=== PATIENT | female | born 1935 | race Caucasian/White ===

== ENCOUNTER 2019-12-18 11:21 | Inpatient (IN) | payer MEDICARE, SELFPAY ==
[2019-12-18] VITALS (8 sets, daily range): BP systolic 93–152; BP diastolic 45–75; PULSE 70–85; RESP 18–28; TEMP 37.6–38.2; O2SAT 90–98; BMI 37.0
--- NOTE | 2019-12-18 11:46 | ED_ITS ---
HPI - General Adult General: Chief complaint: General Medical Stated complaint: SHAKING ALL OVER/ FEVER Time Seen by Provider: 12/18/19 11:26 History of Present Illness: HPI narrative: 84-year-old female comes in from home via EMS. She is attended by her daughter. Her only complaint is weakness and shaking. She specifically denies any pain. She denies any chest pain abdominal pain. She denies any GI or complaints. She denies any recent medication changes. She is has chronic swelling in her legs but that has not changed either. She has no skin breakdown or ulceration. She has a fever here but denies having any fever at home release that she was aware of should not check it but she has not felt any fever sweats or chills. She did have a pacemaker replaced 1 week ago. Onset (ago): day(s) Severity: moderate Associated symptoms: Reports malaise and weakness; Deny chest pain, confusion, cough, diaphoresis, decreased appetite, dyspnea, fevers/chills, headache(s), nausea, rash, palpitations, seizures, short of breath, syncope or vomiting Treatments prior to arrival: none Review of Systems Const: Reports: malaise; Denies: diaphoresis ENMT: Denies: throat pain, ear or mastoid pain, nasal discharge or nasal congestion Card: Denies: chest pain, palpitations or syncope Resp: Denies: dyspnea GI: Denies: nausea or vomiting : Denies: flank pain, difficulty voiding, dysuria, urinary frequency or urinary urgency Skin/Breast: Denies: rash Neuro: Denies: headache(s) or confusion [facility] ED PFSH: Medical History (Updated 12/21/19 @ 06:54 by Isaías Medel DO) Atrial fibrillation CHF (congestive heart failure) COPD (chronic obstructive pulmonary disease) Chronically on 3 l Coronary artery disease Hyperlipidemia Peripheral neuropathy Restless leg syndrome Sick sinus syndrome Surgical History (Updated 12/18/19 @ 14:34 by Mitch Maxwell MD) History of appendectomy History of bilateral knee arthroplasty Pacemaker Previous back surgery Family History (Updated 12/18/19 @ 14:36 by Mitch Maxwell MD) Other CAD (coronary artery disease) Diabetes Social History (Updated 12/18/19 @ 14:36 by Mitch Maxwell MD) Smoking and tobacco status: never smoked Alcohol intake: never Physical Exam Const: COMMON NORMALS: no acute distress GENERAL APPEARANCE: cooperative and comfortable HENMT: COMMON NORMALS: normocephalic, atraumatic, hearing grossly normal bilaterally and external ears normal HEAD & SCALP: normocephalic and atraumatic EXTERNAL EAR: Yes external ears normal Eye: COMMON NORMALS: Equal, round and reactive pupils present, EOMs intact bilaterally, conjunctivae normal and no scleral icterus CONJUNCTIVA: Yes conjunctivae normal PUPIL: Yes Equal, round and reactive pupils present Neck/C-Spine: COMMON NORMALS: full ROM, no lymphadenopathy, supple and no JVD Lymph: LYMPHATIC: no lymphadenopathy noted and no lymphedema noted Resp: COMMON NORMALS: normal respiratory effort, No retractions, No use of accessory muscles and clear to auscultation bilaterally AUSCULTATION: clear to auscultation bilaterally Cardio: COMMON NORMALS: no JVD, regular rate, regular rhythm and No murmurs present (Cardio) RATE: regular rate RHYTHM: regular rhythm GI: COMMON NORMALS: Soft to palpation and No hepatosplenomegaly present AUSCULTATION: Yes normoactive bowel sounds PALPATION: Yes Soft to palpation, No Tenderness to palpation present (GI), No Guarding due to palpation present (GI) and Yes No hepatosplenomegaly present Extremity: COMMON NORMALS: normal to inspection, capillary refill normal, no clubbing, cyanosis or edema, no calf tenderness and no pedal edema Skin: COMMON NORMALS: no rashes or lesions noted GENERAL SKIN EXAM: no rashes or lesions noted Course Vital Signs: Vital signs: Vital Signs Temperature 101.3 F H 12/21/19 04:00 Pulse Rate 80 12/21/19 04:29 Respiratory Rate 21 H 12/21/19 05:39 Blood Pressure 137/49 12/21/19 04:00 Pulse Oximetry 94 12/21/19 04:29 MDM - General Adult MDM Narrative: Medical decision making narrative: Patient is left lower lobe pneumonia and elevated troponin discussed Dr. Jenkins will admit orders written. Lab Data: Labs: Lab Results 12/18/19 12/18/19 12/18/19 Range/Units 11:51 12:02 12:02 WBC 4.6 (4.0-10.0) 10^3/ uL RBC 3.87 L (4.1-5.3) 10^6/u L Hgb 10.9 L (11.5-15.3) g/dL Hct 36.1 L (37.0-47.0) % MCV 93.3 (81-99) fL MCH 28.2 (28.0-34.0) pg MCHC 30.2 (30.0-36.0) g/dL RDW 17.2 H (12.1-15.1) % Plt Count 115 L (130-400) 10^3/c mm MPV 12.9 H (7.4-10.4) fL Neut % (Auto) 79.6 % Lymph % (Auto) 11.0 % Coles % (Auto) 7.5 % Eos % (Auto) 0.4 % Baso % (Auto) 0.4 % Neut # (Auto) 3.69 (1.8-7.7) 10^3/u L Lymph # (Auto) 0.5 L (0.8-4.8) 10^3/u L Coles # (Auto) 0.4 (0.2-0.9) 10^3/u L Eos # (Auto) 0.0 (0.0-0.8) 10^3/u L Baso # (Auto) 0.0 (0.0-0.1) 10^3/u L Nucleated RBC % (a uto) 0 % Nucleated RBCs # 0.0 /100WBC Sodium (136-145) mmol/L Potassium (3.5-5.1) mmol/L Chloride (98-107) mmol/L Carbon Dioxide (22-29) mmol/L Anion Gap (5-19) BUN (8-23) mg/dL Creatinine (0.5-0.9) mg/dL GFR Calculation Glucose (65-115) mg/dL Calculated Osmolal ity (285-295) mOsm/k g Lactic Acid 2.2 (0.5-2.2) mmol/L Calcium (8.5-10.5) mg/dL Magnesium (1.7-2.3) mg/dL Total Bilirubin (0.15-1.2) mg/dL AST (0-32) U/L ALT (0-33) U/L Alkaline Phosphata se (35-105) IU/L Creatine Kinase (26-192) U/L Troponin T Baselin e (0-10) ng/L Troponin T 120 Min alturas (0-10) ng/L Delta Troponin T (0-10) ABS# Total Protein (6.6-8.7) g/dL Albumin (3.5-5.2) g/dL Globulin (1.3-4.6) g/dL Lipase (13-60) U/L Urine Color Yellow (Yellow) Urine Appearance Sl hazy (CLEAR) Urine pH 7 (5-7) Ur Specific Gravit y 1.010 (1.005-1.030) Urine Protein Neg (Negative) Urine Glucose (UA) Norm (Normal) Urine Ketones Negative (Negative) Urine Blood Neg (Negative) Urine Nitrate Negative (Negative) Urine Bilirubin Neg (NEGATIVE) Urine Urobilinogen Neg (Negative) mg/dL Ur Leukocyte Malini ase Negative (Negative) Serum Ketones (Negative) 12/18/19 12/18/19 12/18/19 Range/Units 12:02 12:02 14:31 WBC (4.0-10.0) 10^3/ uL RBC (4.1-5.3) 10^6/u L Hgb (11.5-15.3) g/dL Hct (37.0-47.0) % MCV (81-99) fL MCH (28.0-34.0) pg MCHC (30.0-36.0) g/dL RDW (12.1-15.1) % Plt Count (130-400) 10^3/c mm MPV (7.4-10.4) fL Neut % (Auto) % Lymph % (Auto) % Coles % (Auto) % Eos % (Auto) % Baso % (Auto) % Neut # (Auto) (1.8-7.7) 10^3/u L Lymph # (Auto) (0.8-4.8) 10^3/u L Coles # (Auto) (0.2-0.9) 10^3/u L Eos # (Auto) (0.0-0.8) 10^3/u L Baso # (Auto) (0.0-0.1) 10^3/u L Nucleated RBC % (a uto) % Nucleated RBCs # /100WBC Sodium 138 (136-145) mmol/L Potassium 4.3 (3.5-5.1) mmol/L Chloride 99 (98-107) mmol/L Carbon Dioxide 29 (22-29) mmol/L Anion Gap 14.3 (5-19) BUN 19 (8-23) mg/dL Creatinine 1.1 H (0.5-0.9) mg/dL GFR Calculation Not Reportable Glucose 119 H (65-115) mg/dL Calculated Osmolal ity 284 L (285-295) mOsm/k g Lactic Acid (0.5-2.2) mmol/L Calcium 8.5 (8.5-10.5) mg/dL Magnesium 2.3 (1.7-2.3) mg/dL Total Bilirubin 0.5 (0.15-1.2) mg/dL AST 33 H (0-32) U/L ALT 19 (0-33) U/L Alkaline Phosphata se 98 (35-105) IU/L Creatine Kinase 44 (26-192) U/L Troponin T Baselin e 28 H (0-10) ng/L Troponin T 120 Min alturas 27.60 H (0-10) ng/L Delta Troponin T -0.40 L (0-10) ABS# Total Protein 6.7 (6.6-8.7) g/dL Albumin 3.8 (3.5-5.2) g/dL Globulin 2.9 (1.3-4.6) g/dL Lipase 16 (13-60) U/L Urine Color (Yellow) Urine Appearance (CLEAR) Urine pH (5-7) Ur Specific Gravit y (1.005-1.030) Urine Protein (Negative) Urine Glucose (UA) (Normal) Urine Ketones (Negative) Urine Blood (Negative) Urine Nitrate (Negative) Urine Bilirubin (NEGATIVE) Urine Urobilinogen (Negative) mg/dL Ur Leukocyte Malini ase (Negative) Serum Ketones Negative (Negative) Discharge Plan Discharge Patient Disposition: Admitted As Inpatient Admit Provider: Mitch Maxwell Clinical Impression: Pneumonia, COPD (chronic obstructive pulmonary disease), Coronary artery disease, Acute kidney injury, Elevated troponin Condition: Stable Interventions: ED Discharge Assessment Last Done: 12/18/19 16:26 ED Charges Last Done: 12/18/19 16:26 Discharge Date/Time: 12/18/19 16:33 Coding Level of Care Code ED Aircraft Power Plant Assembler for Chg Fwd Exam Comprehensive
--- NOTE | 2019-12-18 11:50 | XR_ITS ---
WS: [id number] EXAM: AP CHEST: PORTABLE UPRIGHT DATE OF EXAM: 12/18/2019, 1213 hours COMPARISON: Chest x-ray from 05/16/2018 HISTORY: Patient is 84 years old with dyspnea and cough.. FINDINGS: The cardiac silhouette is slightly enlarged. The mediastinal contours are similar. Calcified plaqu e in the aorta. Left subclavian dual lead pacer remains in place. The pulmonary vascularity is slig htly congested. Chronic lung changes are demonstrated. Calcified granuloma right upper lobe. Patchy infiltrate in the medial right lung base again seen, considered chronic. There is infiltrate which merida s developed within the left lung base of the left effusion suggesting a pneumonia. No pneumothorax. Bone density is decreased. XR/XR chest 1V portable [id number] IMPRESSION: Stable cardiomegaly. Chronic lung changes. What appears be chronic infiltrate inferior right hilum a nd medial right lung base. Developing pneumonia left lung base with a small left effusion.
--- NOTE | 2019-12-18 11:51 | ECG_ITS ---
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 Measurements Intervals [place] Rate: 78 P: MD: -1 QRS: -71 QRSD: 149 T: 5 QT: 414 QTc: 472 Interpretive Statements JUNCTIONAL RHYTHM RIGHT BUNDLE BRANCH BLOCK [120+ ms QRS DURATION, UPRIGHT V1, 40+ ms S IN I/aVL/V4/V5/V6] LEFT ANTERIOR FASCICULAR BLOCK [QRS AXIS <= -45, QR IN I, RS IN II] Compared to ECG 05/16/2018 08:02:31 Right bundle-branch block now present Left anterior fascicular block now present T-wave abnormality now present Possible ischemia now present Atrial-paced complex(es) or rhythm no longer present Ventricular-paced complex(es) or rhythm no longer present Electronically Signed On 12-19-2019 19:41:34 CDT by Gaston Stewart M.D. [id number]
[2019-12-18 12:14] LABS: Add Urine Microscopic? NO
[2019-12-18 12:15] LABS: Basophils % 0.4 %; Eosinophils % 0.4 %; Hematocrit 36.1 % (37.0-47.0); Hemoglobin 10.9 g/dL (11.5-15.3); Lymphocytes # 0.5 10^3/uL (0.8-4.8); Mean Corpuscular HGB Conc 30.2 g/dL (30.0-36.0); Mean Corpuscular Hemoglobin 28.2 pg (28.0-34.0); Mean Corpuscular Volume 93.3 fL (81-99); Mean Platelet Volume 12.9 fL (7.4-10.4); Monocytes # 0.4 10^3/uL (0.2-0.9); Monocytes % 7.5 %; Neutrophils # 3.69 10^3/uL (1.8-7.7); Neutrophils % 79.6 %; Nucleated Red Blood Cells % 0 %; Platelet Count 115 10^3/cmm (130-400); Red Blood Count 3.87 10^6/uL (4.1-5.3); Red Cell Distribution Width 17.2 % (12.1-15.1); White Blood Count 4.6 10^3/uL (4.0-10.0)
[2019-12-18 12:27] LABS: Bilirubin Urine Neg (NEGATIVE); Blood Urine Neg (Negative); Glucose Urine UA Norm (Normal); Ketones Urine Negative (Negative); Leukocyte Esterase Urine Negative (Negative); Nitrate Urine Negative (Negative); Protein Urine Neg (Negative); Urine Appearance SL Hazy (CLEAR); Urine Color Yellow (Yellow); Urobilinogen Urine Neg (Negative); pH Urine 7 (5-7)
[2019-12-18 12:37] LABS: Ketone (Acetest) Serum Negative (Negative)
[2019-12-18 12:38] LABS: Lactic Sepsis W/Reflex 2.2 mmol/L (0.5-2.2); Troponin(5th) Baseline 28 ng/L (0-10)
[2019-12-18 13:01] LABS: Alanine Aminotransferase 19 U/L (0-33); Albumin Level 3.8 g/dL (3.5-5.2); Alkaline Phosphatase 98 IU/L (35-105); Anion Gap 14.3 (5-19); Aspartate Amino Transferase 33 U/L (0-32); Blood Urea Nitrogen 19 mg/dL (8-23); Calcium 8.5 mg/dL (8.5-10.5); Carbon Dioxide 29 mmol/L (22-29); Chloride 99 mmol/L (98-107); Creatine Phosphokinase 44 U/L (26-192); Globulin 2.9 g/dL (1.3-4.6); Glucose 119 mg/dL (65-115); Lipase 16 U/L (13-60); Magnesium 2.3 mg/dL (1.7-2.3); Osmolality Calculated 284 mOsm/kg (285-295); Potassium 4.3 mmol/L (3.5-5.1); Sodium 138 mmol/L (136-145); Total Bilirubin 0.5 mg/dL (0.15-1.2); Total Protein 6.7 g/dL (6.6-8.7)
--- NOTE | 2019-12-18 13:51 | ECG_ITS ---
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 Measurements Intervals [place] Rate: 75 P: ME: -1 QRS: -71 QRSD: 162 T: 65 QT: 415 QTc: 464 Interpretive Statements Junctional rhythm Intermittent paced beats RIGHT BUNDLE BRANCH BLOCK [120+ ms QRS DURATION, UPRIGHT V1, 40+ ms S IN I/aVL/V4/V5/V6] LEFT ANTERIOR FASCICULAR BLOCK [QRS AXIS <= -45, QR IN I, RS IN II] MODERATE T-WAVE ABNORMALITY, CONSIDER LATERAL ISCHEMIA [-0.1+ mV T WAVE IN I/aVL/V5/V6] Compared to ECG 12/18/2019 12:17:32 T-wave abnormality still present Electronically Signed On 12-20-2019 20:06:26 CDT by Gaston Stewart M.D. [id number]
[2019-12-18 13:57] LABS: Reflex Lactate Order REFLEX LACTIC ORDERD
[2019-12-18] MEDS: cefTRIAXone 1,000 MG in sodium chloride 0.9% (plus) 50 ML 100 MG IV (14:14)
--- NOTE | 2019-12-18 14:32 | P.HP_ITS ---
Providers/Chief Complaint Chief Complaint: SHAKING ALL OVER/ FEVER History of Present Illness Kate Haskins is a 84 year old female Medications/Allergies Home Medications Medication Instructions Recorded Confirmed Last Taken Type calcium carbonate-vitamin D3 1 tab PO DAILY 12/18/19 12/18/19 Unknown History [Calcium 500 + D] cetirizine [Zyrtec] 10 mg PO QPM 12/18/19 12/18/19 12/17/19 History diltiazem HCl 120 mg PO DAILY 12/18/19 12/18/19 Unknown History escitalopram oxalate See Rx Instructions .ROUTE .COMPLEX 12/18/19 12/18/19 Unknown History fluticasone propionate 2 spray INTRANASAL DAILY 12/18/19 12/18/19 Unknown History furosemide 40 mg PO BID 12/18/19 12/18/19 12/18/19 History gabapentin See Rx Instructions .ROUTE .COMPLEX 12/18/19 12/18/19 12/18/19 History hydrocodone-acetaminophen 1 tab PO Q6H PRN 12/18/19 12/18/19 12/17/19 History isosorbide mononitrate 120 mg PO QAM 12/18/19 12/18/19 12/18/19 History levocetirizine 5 mg PO QPM 12/18/19 12/18/19 12/17/19 History lisinopril 10 mg PO BID 12/18/19 12/18/19 12/18/19 History naproxen sodium [Aleve] 220 mg PO PRN 12/18/19 12/18/19 12/17/19 History omeprazole 20 mg PO DAILY 12/18/19 12/18/19 12/18/19 History Allergies Allergy/AdvReac Type Severity Reaction Status Date / Time ibuprofen [From Motrin] Allergy Unknown Verified 12/18/19 12:19 Penicillins Allergy Unknown Verified 12/18/19 12:19 PFSH Acute PFSH: Medical History (Updated 12/18/19 @ 14:40 by Mitch Maxwell MD) Atrial fibrillation CHF (congestive heart failure) COPD (chronic obstructive pulmonary disease) Chronically on 3 l Coronary artery disease Hyperlipidemia Peripheral neuropathy Restless leg syndrome Sick sinus syndrome Surgical History (Updated 12/18/19 @ 14:34 by Mitch Maxwell MD) History of appendectomy History of bilateral knee arthroplasty Pacemaker Previous back surgery Family History (Updated 12/18/19 @ 14:36 by Mitch Maxwell MD) Other CAD (coronary artery disease) Diabetes Social History (Updated 12/18/19 @ 14:36 by Mitch Maxwell MD) Smoking and tobacco status: never smoked Alcohol intake: never Vitals/I&O/Wt Last Vital Signs Temp 100.8 F H 12/18/19 11:22 Pulse 75 12/18/19 14:21 Resp 20 H 12/18/19 14:21 BP 133/65 12/18/19 14:21 Pulse Ox 98 12/18/19 14:21 Weight last 48 hrs Weight 97.976 kg Physical Exam Narrative: EXAM NARRATIVE: General exam no apparent distress HEENT: Pupils equally round. Oropharynx clear. Neck is supple no lymphadenopathy or thyromegaly Cardiovascular regular rate and rhythm without murmur, no S3 or S4 Lungs clear a few crackles left side. No wheezing. Abdomen is soft nontender with positive bowel sounds. No obvious organomegaly is deferred Extremities no cyanosis clubbing or edema, cap refill brisk Skin no rash Neuro no focal deficits Data : 12/18/19 12:02 12/18/19 12:02 Other Labs: AST slightly elevated at 33, troponin elevated at 28, urinalysis negative. Chest x-ray pneumonia, left effusion possible. Pacemaker noted. EKG demonstrates sinus rhythm, left axis deviation, right bundle branch block and a heart rate of 78 Micro: Microbiology 12/18/19 12:02 Blood Culture - Preliminary Blood SPECIMEN COLLECTED 12/18/19 12:06 Blood Culture - Preliminary Blood SPECIMEN COLLECTED A&P Assessment and plan (1) Pneumonia: Appears to have left lower lobe pneumonia. Febrile with temperature of 100.8. Patient with history of chills at home. Blood culture, sputum culture. Rocephin, azithromycin Status: Acute (2) Acute kidney injury: Hold diuretics today Avoid renal toxic medication such as anti-inflammatories which are on her PRN list. Status: Acute (3) Elevated troponin: Likely type II, will trend Status: Acute Additional A&P Information History of CHF hold Lasix currently. History of coronary artery disease. Asymptomatic. Hypertension. For now continue home medications Multiple other medical problems as listed in her past medical history Heparin for DVT prophylaxis full code Attestations Medical Necessity Statement*: Will need greater than 2 midnight stay for IV antibiotics secondary to pneumonia. Coding Level of Care Code Acute Body Maker Machine Setter for Chg Fwd Diagnoses Pneumonia J18.9 Acute kidney injury N17.9 Elevated troponin R79.89
--- NOTE | 2019-12-18 15:05 | PC.NURSE ---
pt tested for covid 19 [place] virus. pt placed on droplet isolation precautions
[2019-12-18] MEDS: azithromycin 500 MG in sodium chloride 0.9% 250 ML 250 MG IV (15:06)
[2019-12-18 15:29] LABS: Influenza A by IFA Negative (Negative); Influenza B by IFA Negative (Negative); SARS Covid-2 Antigen Negative (Negative)
--- NOTE | 2019-12-18 15:40 | PC.NURSE ---
Pt requested being turned and was turned onto her right hip. Pt also requested a warm blanket, given.
[2019-12-18] MEDS: gabapentin 400 mg Capsule PO ×2 (17:31→21:04)
[2019-12-18] MEDS: heparin 5,000 unit/mL INJ 1 mL 5000 UNIT SUBCUT (17:31)
[2019-12-18] MEDS: lisinopril 10 mg Tablet PO (17:37)
--- NOTE | 2019-12-18 17:51 | ECG_ITS ---
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 Measurements Intervals [place] Rate: 77 P: ME: -1 QRS: -61 QRSD: 140 T: 30 QT: 429 QTc: 487 Interpretive Statements Junctional rhythm RIGHT BUNDLE BRANCH BLOCK [120+ ms QRS DURATION, UPRIGHT V1, 40+ ms S IN I/aVL/V4/V5/V6] LEFT ANTERIOR FASCICULAR BLOCK [QRS AXIS <= -45, QR IN I, RS IN II] Compared to ECG 12/18/2019 14:01:06 No significant changes Electronically Signed On 12-20-2019 20:02:03 CDT by Gaston Stewart M.D. [id number]
[2019-12-18 18:39] LABS: Lactic Acid level (Lactate) 1.3 mmol/L (0.5-2.2)
[2019-12-18 18:41] LABS: Troponin 5 6HR 27.57 ng/L (0-10)
[2019-12-18 18:42] LABS: Troponin 5 6HR Delta -0.43 ng/L (0-12)
[2019-12-19] VITALS (65 sets, daily range): BP systolic 67–169; BP diastolic 12–74; PULSE 66–125; RESP 14–62; TEMP 37.2–39.6; O2SAT 83–99
[2019-12-19] MEDS: heparin 5,000 unit/mL INJ 1 mL 5000 UNIT SUBCUT ×2 (03:17→15:43)
[2019-12-19 04:03] LABS: Basophils % 0.5 %; Eosinophils % 0.3 %; Hemoglobin 10.7 g/dL (11.5-15.3); Lymphocytes # 0.6 10^3/uL (0.8-4.8); Lymphocytes % 15.6 %; Mean Corpuscular HGB Conc 29.7 g/dL (30.0-36.0); Mean Corpuscular Hemoglobin 27.5 pg (28.0-34.0); Mean Corpuscular Volume 92.5 fL (81-99); Mean Platelet Volume 12.9 fL (7.4-10.4); Monocytes # 0.4 10^3/uL (0.2-0.9); Monocytes % 10.5 %; Neutrophils # 2.68 10^3/uL (1.8-7.7); Nucleated Red Blood Cells % 0 %; Platelet Count 91 10^3/cmm (130-400); Red Blood Count 3.89 10^6/uL (4.1-5.3); Red Cell Distribution Width 17.2 % (12.1-15.1); White Blood Count 3.7 10^3/uL (4.0-10.0)
[2019-12-19 04:24] LABS: Alanine Aminotransferase 24 U/L (0-33); Albumin Level 3.5 g/dL (3.5-5.2); Alkaline Phosphatase 91 IU/L (35-105); Anion Gap 11.3 (5-19); Aspartate Amino Transferase 42 U/L (0-32); Blood Urea Nitrogen 17 mg/dL (8-23); Calcium 8.4 mg/dL (8.5-10.5); Carbon Dioxide 29 mmol/L (22-29); Chloride 100 mmol/L (98-107); Globulin 2.5 g/dL (1.3-4.6); Glucose 122 mg/dL (65-115); Osmolality Calculated 280 mOsm/kg (285-295); Potassium 4.3 mmol/L (3.5-5.1); Sodium 136 mmol/L (136-145); Total Bilirubin 0.5 mg/dL (0.15-1.2)
[2019-12-19] MEDS: gabapentin 400 mg Capsule PO ×2 (06:38→09:06)
[2019-12-19] MEDS: isosorbide mononitrate ER 60 mg Tablet 120 MG PO (06:38)
[2019-12-19] MEDS: acetaminophen 325 mg Tablet 650 MG PO ×2 (09:06→15:48)
[2019-12-19] MEDS: pantoprazole DR 40 mg Tablet PO (09:06)
[2019-12-19] MEDS: dilTIAZem ER (24HR) 120 mg Capsule PO (09:06)
[2019-12-19] MEDS: lisinopril 10 mg Tablet PO (09:06)
--- NOTE | 2019-12-19 10:31 | CT_ITS ---
WS: [id number] EXAM: CT PULMONARY ANGIOGRAM DATE OF EXAMINATION: 12/19/2019, 1359 hours COMPARISON: Chest x-ray from one day prior. HISTORY: 84 years old with dyspnea and cough, shaking and fever. Clinical working diagnosis of pulmonary embol us. TECHNIQUE: Transaxial computed tomography images obtained through the chest utilizing 95 mL of Omnipaque 350 IV contrast with images acquired in the pulmonary arterial phase. Images viewed in multiple windows with reconstructions. DLP: 579.[address] scans at [facility] use at least one of these dose optimization techniques: automat ed exposure control; mA and/or kV adjustment per patient size (includes targeted exams where dose is matched to clinical indication); or iterative reconstruction. FINDINGS: The pulmonary artery is well opacified. The examination is compromised by slight motion artifact. No large central embolus is identified. The more peripheral vessels are considered poorly visualized to assess for more peripheral small embolic phenomena. There are findings of patchy bilateral upper lobe groundglass infiltrates. Becomes more of a consolidative patchy pneumonitis within the lingula, both lower lobes and medial segment of the middle lobe suggesting a multilobar pneumonia. No effusion or pneumothorax. Correlation for atypical pneumonitis including a viral pneumonia recommended. Shotty ad enopathy is seen within the mediastinum. Heart size is slightly enlarged. Pacing wires and in the hea rt. Pacing unit is in the left upper chest wall. Overall bone density is decreased. Multilevel degene rative changes are seen in the spine. Overall bone density is profoundly decreased. DEXA scan correla tion is recommended. Extensive calcification along the interspinous ligament dorsally noted. No acute spine abnormality is seen. Upper abdomen liver attenuation is normal. Spleen, visualized portions of the pancreas, adrenal glands are normal in appearance. CT/CT angio chest PE protcl [id number] IMPRESSION: Imaging findings consistent with a multilobar pneumonia. Most prominent in the lung bases. Consider atypical agents including a viral pneumonia. Examination compromised by slight motion artifact and body habitus. No large ce ntral embolus identified. More peripheral vessels are considered poorly evaluat ed.
[2019-12-19 13:29] LABS: Glucose Point of Care 120 mg/dL (70-110)
[2019-12-19 13:35] LABS: ABG PCO2 51.8 mmHg (35-45); ABG PH Result 7.25 (7.35-7.45); Alveolar-Arterial Oxygen Gradi 3.3 mmHg (5-10); Arterial Blood Gas Hematocrit 39.1 % (37-47); Base Excess ABG -4.8 mmol/L (-2.0-2.0); Blood Gas Allen Test Pos; Blood Gas Operator Identificat CAK; Blood Gas Sample Site Brachial, left; Blood Gas Sample Type Arterial; Carboxyhemoglobin 0.8 %THgb (0.4-20.1); HCO3 ABG 22.8 mmol/L (22-26); HGB O2 Sat 84.6 % (95-100); Ionized Calcium Level - ABG 1.3 mmol/L (1.1-1.4); Methemoglobin 0.8 % (0.4-1.5); Oxygen Device OXY MASK; PO2 ABG 61.1 mmHg (80.0-100.0); Potassium Level - ABG 4.5 mmol/L (3.5-5.0); Total Hemoglobin 12.8 g/dL (12-16)
--- NOTE | 2019-12-19 13:47 | PC.NURSE ---
Tow Motor Driver attempted to contact pt daughter to inform her of pt being transferred to ICU.
--- NOTE | 2019-12-19 13:53 | P.PN_ITS ---
Subjective Subjective: Interval history: Kate reported she was doing okay when I saw her earlier this morning. She however did spike another fever. She stated she was short of breath. I was called into the room early this afternoon as her oxygen level had gone down significantly after going to the bathroom. Vital signs were reviewed, she was given 80 mg of Lasix IV, placed on BiPAP for work of breathing, ABG drawn, and transferred to the ICU. Medications: Reviewed: Yes Vitals/I&O/Wt Last Vital Signs Temp 100.1 F H 12/19/19 11:49 Pulse 95 12/19/19 13:35 Resp 18 12/19/19 11:49 BP 113/66 12/19/19 11:49 Pulse Ox 96 12/19/19 13:35 12/18/19 12/19/19 12/19/19 22:59 06:59 14:59 Intake Total 750 / 750 90 / 90 Output Total 105 / 105 200 / 305 Balance 645 / 645 -200 / 445 90 / 90 Weight last 48 hrs Weight 97.976 kg Physical Exam Narrative: EXAM NARRATIVE: General exam moderate respiratory distress without BiPAP Cardiovascular regular rate and rhythm without murmur, no S3 or S4 Lungs a few expiratory wheezes Abdomen is soft nontender with positive bowel sounds. No obvious organomegaly is deferred Extremities no cyanosis clubbing. 1+ edema Data : 12/19/19 03:49 12/19/19 03:49 Micro: Microbiology 12/18/19 12:06 Blood Culture - Preliminary Blood NEGATIVE TO DATE 12/18/19 12:02 Blood Culture - Preliminary Blood NEGATIVE TO DATE A&P Assessment and plan (1) Pneumonia: Appears to have left lower lobe pneumonia. Febrile with temperature of 100.8 on admission. She appears to be worsening. Discontinue Rocephin and azithromycin Initiate vancomycin, cefepime Blood culture, sputum culture pending With recurrent fever must also consider possible bacteremia as she recently had pacemaker placed 2 weeks ago CTA of chest ordered pulmonary embolism protocol for increasing shortness of breath, as well as fever and pneumonia Lasix 80 mg IV secondary to respiratory distress Status: Acute (2) Acute kidney injury: Renal function has improved significantly Avoid renal toxic medication such as anti-inflammatories which are on her PRN list. Status: Acute (3) Elevated troponin: Type II. No evidence of acute myocardial infarction Status: Acute Additional A&P Information History of tick bites. Initiate doxycycline. Note that she has become leukopenic as well as thrombocytopenic which could be indicative of tickborne disease although sepsis from pneumonia is also possible. Acute hypoxic respiratory failure. Differential includes CHF, worsening pneumonia, PE. See notations above regarding IV Lasix, BiPAP, CTA chest. Check EKG History of CHF Lasix 80 mg IV x1. Check BNP on blood in lab History of coronary artery disease. Asymptomatic. Hypertension. For now continue home medications Multiple other medical problems as listed in her past medical history Heparin for DVT prophylaxis full code Attestations Medical Necessity Statement*: Needs continued hospitalization for IV antib iotics secondary to pneumonia Coding Level of Care Code Acute Technical Maintenance Technician for [facility] Fwd Diagnoses Pneumonia J18.9 Acute kidney injury N17.9 Elevated troponin R79.89
--- NOTE | 2019-12-19 13:57 | PC.NURSE ---
Heel Sprayer First spoke to pt daughter regarding her transfer to ICU.
--- NOTE | 2019-12-19 14:02 | ECG_ITS ---
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 Measurements Intervals [place] Rate: 79 P: -9 RI: 180 QRS: -82 QRSD: 165 T: 85 QT: 384 QTc: 441 Interpretive Statements ELECTRONIC ATRIAL PACEMAKER ELECTRONIC VENTRICULAR PACEMAKER Compared to ECG 12/18/2019 18:21:23 Paced rhythm now present Right bundle-branch block no longer present Left anterior fascicular block no longer present Electronically Signed On 12-21-2019 12:12:31 CDT by Gaston Stewart M.D. [email or web address]/store/[id number]
[2019-12-19] MEDS: iohexol 350 mg/mL 100 mL Btl IV (14:07)
[2019-12-19] MEDS: ipratropium-albuterol 3 mL Neb INHALATION ×2 (14:46→19:29)
[2019-12-19] MEDS: cefepime 2,000 MG in sodium chloride 0.9% (plus) 50 ML 100 MG IV (14:47)
[2019-12-19 14:53] LABS: NT Pro B Type Natriuretic Pept 2220 pg/mL (0-450)
[2019-12-19] MEDS: sodium chloride 0.9% 500 ML IV ×2 (17:45→19:23)
[2019-12-19] MEDS: sodium chloride 0.9% 250 ML 1000 ML IV (17:48)
[2019-12-19] MEDS: doxycycline 100 mg Tablet PO (18:15)
[2019-12-19] MEDS: levofloxacin-dextrose 5 % 750 MG/150 ML PREMIX 100 MG IV (18:15)
--- NOTE | 2019-12-19 19:58 | PC.NURSE ---
At shift change, pt had pulled out R AC IV. IV access reestablished in R FA. Pt on bipap, but O2 was 93%. Pt unable to answer questions and difficult to arouse. BP 106/89 after starting levophed. RT consulted and Dr hong. G ordered.
[2019-12-19 20:01] LABS: ABG PCO2 49.9 mmHg (35-45); ABG PH Result 7.25 (7.35-7.45); Arterial Blood Gas Hematocrit 34.6 % (37-47); Base Excess ABG -5.4 mmol/L (-2.0-2.0); Blood Gas Sample Site Brachial, right; Blood Gas Sample Type Arterial; HCO3 ABG 21.9 mmol/L (22-26); Oxygen Device BIPAP; PO2 ABG 72.3 mmHg (80.0-100.0)
[2019-12-19] MEDS: rocuronium 10 mg/mL INJ 5mL 100 MG IV (20:32)
--- NOTE | 2019-12-19 20:35 | XR_ITS ---
WS: [id number] EXAM: AP CHEST: PORTABLE UPRIGHT DATE OF EXAM: 12/19/2019, 2045 hour COMPARISON: Chest x-rays from 07/14/2018 and 12/18/2019 HISTORY: Patient is 84 years old with respiratory failure. Intubated an enteric tube placement. FINDINGS: The cardiac silhouette is stable. Considered slightly enlarged. The mediastinal contours show inte rval placement of an endotracheal tube ending midclavicular level. Enteric tube crosses the thoracic esophagus. Side port overlies the left upper abdomen. The pulmonary vascularity is congested. There appears to be some minimal infiltrate in the right perihilar region with calcified granuloma outer r ight chest. Patchy infiltrate in the left mid and lower chest again demonstrated. Appears slightly wo rse. Small left effusion. No pneumothorax. No acute bony abnormality is seen. XR/XR chest 1V portable [id number] IMPRESSION: Endotracheal tube and enteric tube in satisfactory position. Slight worsening l eft base infiltrate. Some patchy infiltrate right perihilar and medial lung bas e.
[2019-12-19] MEDS: sodium chloride 0.9% 500 ML 999 ML IV (21:09)
--- NOTE | 2019-12-19 21:11 | P.PCN_ITS ---
Procedure/Consent Time out: Time Out Performed: Yes Consent: Consent for Procedure: Consent obtained from patient Procedure Narrative: Bedside endo tracheal intubation I was called by the respiratory therapist that patient is getting somnolent, stat ABG revealed respiratory acidosis on BiPAP, decision was made to intubate the patient Patient was on BiPAP saturating 99 to 100%, map 64-65, we titrated up her l evophed, 500 normal saline bolus was running at the bedside Etomidate 30 mg and rocuronium 100 mg was used, MAC 3.5 blade was used to visualize vocal cords, endotracheal tube size 7.5 was inserted without any difficulty, end-tidal CO2 detected via color change, bilateral coarse breath sounds, endotracheal tube secured at lipbite 24 cm. Post intubation saturation improved quickly with Ambu bag Post intubation blood pressure 105/70mmhg Endotracheal tube placement confirmed with chest x-ray NG tube in the gastric fundus Post intubation sedation with fentanyl because of her soft mean arterial p ressure. Her daughter Ms. Mejias has been updated. Acute Procedures Epistaxis Control: Time out performed: Yes Intubation: Time out performed: Yes Sedative: etomidate Paralytic: rocuronium Laryngoscope: Jose ET tube size: 7.5 Tube secured location: lips Tube placement confirmation: visualized tube passing through cords and equal breath sounds bilaterally Patient tolerated procedure: well Intubation complications: none
[2019-12-19] MEDS: phenylephrine inj 25 MG in sodium chloride 0.9% 250 ML 24.2 MG IV (21:14)
[2019-12-19 22:03] LABS: ABG PH Result 7.28 (7.35-7.45); Arterial Blood Gas Hematocrit 36.4 % (37-47); Base Excess ABG -6.9 mmol/L (-2.0-2.0); Blood Gas Sample Site Brachial, right; Blood Gas Sample Type Arterial; Blood Gas Tidal Volume 0.45; HCO3 ABG 19.4 mmol/L (22-26); Oxygen Device VENT; PO2 ABG 73.9 mmHg (80.0-100.0)
[2019-12-19] MEDS: FUROsemide 10 mg/mL SDV 2mL 20 MG IVP (23:09)
[2019-12-19] MEDS: metroNIDAZOLE IV 500 MG/100 ML PREMIX 100 MG IV (23:09)
[2019-12-19] MEDS: doxycycline 100 MG in sodium chloride 0.9% (plus) 100 ML IV (23:12)
[2019-12-19 23:51] LABS: Anion Gap 19.8 (5-19); Blood Urea Nitrogen 28 mg/dL (8-23); Calcium 8.4 mg/dL (8.5-10.5); Carbon Dioxide 20 mmol/L (22-29); Chloride 100 mmol/L (98-107); Glucose 201 mg/dL (65-115); Osmolality Calculated 283 mOsm/kg (285-295); Potassium 4.8 mmol/L (3.5-5.1); Sodium 135 mmol/L (136-145)
[2019-12-19 23:52] LABS: Lactate (Lactic Acid level) 3.7 mmol/L (0.5-2.2)
[2019-12-19] MEDS: LORazepam 2 mg/mL INJ 1 mL IVP (23:57)
[2019-12-20] VITALS (82 sets, daily range): BP systolic 67–169; BP diastolic 33–82; PULSE 61–108; RESP 12–32; TEMP 38–40.6; O2SAT 91–98
--- NOTE | 2019-12-20 00:06 | PC.PHAR ---
Levaquin dosage is adjusted from 750mg IVPB every 24 hours to 750mg IVPB every 48 hours due to creatinine clearance of 28.504
[2019-12-20] MEDS: ipratropium-albuterol 3 mL Neb INHALATION ×5 (00:11→19:41)
[2019-12-20] MEDS: norepinephrine 8 MG in dextrose 5 % 500 ML 30.5 MG IV (00:25)
[2019-12-20] MEDS: cefepime 2,000 MG in sodium chloride 0.9% (plus) 50 ML 100 MG IV ×2 (00:55→23:28)
[2019-12-20] MEDS: levofloxacin-dextrose 5 % 750 MG/150 ML PREMIX 100 MG IV (01:05)
[2019-12-20] MEDS: propofol 1,000 MG/100 ML INJ 8.8 MG IV ×2 (01:50→21:14)
--- NOTE | 2019-12-20 02:03 | PM.ACPR ---
Procedure/Consent Consent: Consent for Procedure: Emergency procedure Additional Consent Information: Central line placement for hypotension right femoral venous access Patient was sedated on propofol and fentanyl After sterile dressing and prep, ultrasound-guided femoral venous access was obtained, Seldinger technique was used to put triple lumen catheter, all 3 ports were flushed with good venous return, central line secured with sutures, sterile dressing applied Postprocedure complication: None Estimated blood loss 20 to 25ml
[2019-12-20] MEDS: heparin 5,000 unit/mL INJ 1 mL 5000 UNIT SUBCUT (02:23)
[2019-12-20 03:32] LABS: Basophils # 0.1 10^3/uL (0.0-0.1); Basophils % 0.5 %; Eosinophils # 0.1 10^3/uL (0.0-0.8); Eosinophils % 0.5 %; Hematocrit 41.2 % (37.0-47.0); Hemoglobin 12.1 g/dL (11.5-15.3); Lymphocytes # 0.8 10^3/uL (0.8-4.8); Lymphocytes % 8.8 %; Mean Corpuscular HGB Conc 29.4 g/dL (30.0-36.0); Mean Corpuscular Hemoglobin 27.6 pg (28.0-34.0); Mean Corpuscular Volume 93.8 fL (81-99); Monocytes # 0.3 10^3/uL (0.2-0.9); Monocytes % 2.7 %; Neutrophils # 7.87 10^3/uL (1.8-7.7); Neutrophils % 84.3 %; Nucleated Red Blood Cells # 0.1 /100WBC; Nucleated Red Blood Cells % 0.7 %; Platelet Count 67 10^3/cmm (130-400); Red Blood Count 4.39 10^6/uL (4.1-5.3); Red Cell Distribution Width 17.3 % (12.1-15.1); White Blood Count 9.3 10^3/uL (4.0-10.0)
[2019-12-20 04:00] LABS: Alanine Aminotransferase 93 U/L (0-33); Albumin Level 3.6 g/dL (3.5-5.2); Alkaline Phosphatase 112 IU/L (35-105); Anion Gap 17.7 (5-19); Aspartate Amino Transferase 218 U/L (0-32); Blood Urea Nitrogen 31 mg/dL (8-23); Carbon Dioxide 23 mmol/L (22-29); Chloride 100 mmol/L (98-107); Globulin 2.6 g/dL (1.3-4.6); Glucose 220 mg/dL (65-115); Osmolality Calculated 286 mOsm/kg (285-295); Potassium 4.7 mmol/L (3.5-5.1); Sodium 136 mmol/L (136-145); Total Bilirubin 1.4 mg/dL (0.15-1.2); Total Protein 6.2 g/dL (6.6-8.7)
[2019-12-20 04:23] LABS: Mean Platelet Volume 12.9 fL (7.4-10.4)
[2019-12-20 05:07] LABS: ABG PCO2 38.6 mmHg (35-45); Arterial Blood Gas Hematocrit 35.1 % (37-47); Base Excess ABG -6.7 mmol/L (-2.0-2.0); Blood Gas Allen Test Pos; Blood Gas Sample Site Brachial, right; Blood Gas Sample Type Arterial; HCO3 ABG 19.1 mmol/L (22-26); Oxygen Device VENT; PO2 ABG 76.6 mmHg (80.0-100.0)
[2019-12-20] MEDS: isosorbide mononitrate ER 60 mg Tablet 120 MG PO (05:22)
[2019-12-20 05:57] LABS: NT Pro B Type Natriuretic Pept 6966 pg/mL (0-450)
--- NOTE | 2019-12-20 06:00 | XR_ITS ---
WS: [id number] EXAM: AP CHEST: PORTABLE UPRIGHT DATE OF EXAM: 12/20/2019, 0500 hours COMPARISON: Chest x-rays from 12/17 and 12/19/2019 as well as prior imaging from 11/16/2017. HISTORY: Patient is 84 years old with respiratory failure. Intubated. Patient with a fever. FINDINGS: The cardiac silhouette is stable. Considered slightly enlarged The mediastinal contours again demo nstrate an endotracheal tube in the midclavicular level. Enteric tube crosses the thoracic esophagus. Distal aspect is off the inferior margin of the film. The pulmonary vascularity is normal. Slight chronic lung changes seen. Calcified granuloma upper outer right hemithorax noted. There is stable s light infiltrate/atelectasis right lung base with small right effusion. Minimally increased diffusion in the interim. Left base consolidation has worsened. Trace left pleural fluid. No pneumothorax lef t subclavian double lead pacer remains in place. XR/XR chest 1V portable [id number] IMPRESSION: Supporting devices in satisfactory position. Worsening consolidation left lung base with small left effusion. Increased aeration to the right lung base with a small increasing right effusion. Minimal right base infiltrate similar.
[2019-12-20] MEDS: metroNIDAZOLE IV 500 MG/100 ML PREMIX 100 MG IV ×3 (06:03→22:29)
[2019-12-20] MEDS: norepinephrine 8 MG in dextrose 5 % 500 ML 38.1 MG IV (08:05)
[2019-12-20 08:07] LABS: Hepatitis A Antibody IgM Non-Reactive (Nonreactive); Hepatitis B Core IgM Non-Reactive (Nonreactive); Hepatitis B Surface Antigen Non-Reactive (Nonreactive); Hepatitis C Virus Antibody Non-Reactive (Nonreactive)
[2019-12-20] MEDS: sodium chloride 0.9% 1,000 ML 50 ML IV (08:10)
[2019-12-20] MEDS: pantoprazole 40 mg SDV IVP ×2 (08:10→19:47)
[2019-12-20] MEDS: acetaminophen 325 mg Tablet 650 MG PO ×3 (08:35→21:03)
[2019-12-20] MEDS: phenylephrine inj 25 MG in sodium chloride 0.9% 250 ML 24.2 MG IV (08:39)
[2019-12-20 08:41] LABS: SARS Covid-2 Antigen Negative (Negative)
--- NOTE | 2019-12-20 10:00 | P.PN_ITS ---
Subjective Subjective: Interval history: Sedated on the ventilator. Had worsening mental status on BiPAP last night so intubated. Pressors were initiated, norepinephrine as well as phenylephrine. Medications: Reviewed: Yes Vitals/I&O/Wt Last Vital Signs Temp 105.1 F H 12/20/19 09:00 Pulse 90 12/20/19 09:30 Resp 26 H 12/20/19 09:30 BP 103/70 12/20/19 09:30 Pulse Ox 97 12/20/19 09:30 12/19/19 12/20/19 12/20/19 22:59 06:59 14:59 Intake Total 1866.423 / 4854.036 6497.696 / 3188.119 496.909 / 496.909 Output Total 200 / 200 400 / 600 Balance 1666.423 / 1756.423 831.696 / 2588.119 496.909 / 496.909 Weight last 48 hrs Weight 98.248 kg Weight 97.976 kg Physical Exam Narrative: EXAM NARRATIVE: Sedated on the ventilator, febrile Cardiovascular regular rate and rhythm Lungs coarse bibasilar Abdomen is soft. Bowel sounds are noted Extremities no cyanosis clubbing. Trace bilateral edema. Urinary Catheter Management^: Boss: Cath Placed During This Visit: yes Reason for Continuing Indwelling Catheter: Accurate Measurement of Urinary Output in Critically Ill Patients Urinary Catheter Date of Insertion: 12/19/19 Urinary Catheter Time of Insertion: 14:00 Data : 12/20/19 03:20 12/20/19 03:20 Micro: Microbiology 12/20/19 02:33 Gram Stain - Preliminary Sputum - Endotracheal Tube Aspirate 12/19/19 23:21 Bacterial Antigens - Final Urine,Voided 12/19/19 23:21 Legionella Urinary Antigen - Final Urine Catheterized 12/19/19 11:20 Gram Stain - Final Sputum - Expectorated Sputum 12/18/19 12:06 Blood Culture - Preliminary Blood NEGATIVE TO DATE 12/18/19 12:02 Blood Culture - Preliminary Blood NEGATIVE TO DATE A&P Assessment and plan (1) Hypotension: Became significantly hypotensive yesterday likely secondary to sepsis. Unable to give significant amount of fluids secondary to heart failure norepinephrine was initiated last night and phenylephrine added. Hopefully this can be weaned. Will add saline at 50 cc an hour secondary to hypotension, sepsis, acute kidney injury Status: Acute (2) Sepsis: See documentation under pneumonia Status: Acute (3) Acute respiratory failure: Rapidly worsened yesterday with fever, worsening shortness of breath, decreased mentation requiring intubation late last night Currently on FiO2 50%, PEEP of 8 Status: Acute (4) Pneumonia: Multilobar pneumonia on CT PE protocol performed yesterday. Continues to be febrile. Antibiotics were cefepime, vancomycin, Levaquin. 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 She was also placed on doxycycline 1 day following admission secondary to history of tick exposure Await blood and sputum cultures I had COVID retested today, with rapid test being negative again and PTC test sent. We will keep in isolation until PTC is negative. With recurrent fever must also consider possible bacteremia as she recently had pacemaker placed 2 weeks ago will echocardiogram has been ordered and pending. Pacemaker site without concerns. Blood cultures negative to date.. Status: Acute (5) Acute kidney injury: Renal function has worsened overnight. This is likely secondary to sepsis and hypotension. Addition of 50 cc an hour saline Repeat BMP tomorrow Status: Acute (6) Elevated troponin: Type II. No evidence of acute myocardial infarction Status: Acute Additional A&P Information Thrombocytopenia. Patient mildly thrombocytopenic at baseline. Discontinue heparin. SCDs for DVT prophylaxis. Follow closely. Likely secondary to sepsis. Metabolic acidosis. Secondary to sepsis, renal failure. Continue to treat. Transaminitis. Check hepatitis panel. She has not really had any abdominal discomfort. Development of this is likely secondary to sepsis. Check abdominal ultrasound. Could consider CT but secondary to current clinical status would like patient to be more stable. History of tick bites. Initiate doxycycline. Note that she has become leukopenic as well as thrombocytopenic which could be indicative of tickborne disease although sepsis from pneumonia is also possible. Acute hypoxic respiratory failure. Differential includes CHF, worsening pne umonia, PE. See notations above regarding IV Lasix, BiPAP, CTA chest. Check EKG History of CHF awaiting echocardiogram. History of COPD. Continue nebs History of coronary artery disease. Asymptomatic. Hypertension. For now continue home medications Multiple other medical problems as listed in her past medical history Heparin for DVT prophylaxis full code GI prophylaxis with Protonix Attestations Medical Necessity Statement*: Needs continued hospital stay in ICU secondary to respiratory failure requiring ventilatory support Critical Care Time: 44 minutes spent in critical care time at bedside, discussing with nursing, examination of the patient, developing plan in this patient with multiorgan failure secondary to sepsis with high risk of . Coding Level of Care Code Acute [employer]il[employer]aker [employer] for [employer] Diagnoses Hypotension I95.9 Sepsis A41.9 Acute respiratory failure J96.00 Pneumonia J18.9 Acute kidney injury N17.9 Elevated troponin R79.89
[2019-12-20] MEDS: doxycycline 100 MG in sodium chloride 0.9% (plus) 100 ML IV ×2 (11:28→22:29)
[2019-12-20] MEDS: propofol 1,000 MG/100 ML INJ 5.9 MG IV (12:49)
--- NOTE | 2019-12-20 13:03 | PC.NURSE ---
Wasted 15 mL of Propofol with Vicenta Conway RN, in the med room.
[2019-12-20] MEDS: norepinephrine 8 MG in dextrose 5 % 500 ML 26.7 MG IV (15:40)
[2019-12-21] VITALS (104 sets, daily range): BP systolic 77–154; BP diastolic 37–88; PULSE 78–107; RESP 12–22; TEMP 36.5–39; O2SAT 87–99
[2019-12-21] MEDS: ipratropium-albuterol 3 mL Neb INHALATION ×7 (00:16→23:01)
[2019-12-21] MEDS: norepinephrine 8 MG in dextrose 5 % 500 ML 22.9 MG IV (02:33)
[2019-12-21] MEDS: HYDROmorphone 1 mg/mL INJ 1 mL 2 MG IVP (03:47)
[2019-12-21] MEDS: sodium chloride 0.9% 1,000 ML 50 ML IV (03:47)
[2019-12-21 04:07] LABS: Basophils % 0.4 %; Eosinophils % 0.1 %; Hematocrit 37.6 % (37.0-47.0); Hemoglobin 11.5 g/dL (11.5-15.3); Lymphocytes # 0.8 10^3/uL (0.8-4.8); Lymphocytes % 7.1 %; Mean Corpuscular HGB Conc 30.6 g/dL (30.0-36.0); Mean Corpuscular Hemoglobin 27.9 pg (28.0-34.0); Mean Corpuscular Volume 91.3 fL (81-99); Monocytes # 0.4 10^3/uL (0.2-0.9); Monocytes % 4.1 %; Neutrophils # 9.46 10^3/uL (1.8-7.7); Neutrophils % 87.3 %; Nucleated Red Blood Cells % 0 %; Platelet Count 54 10^3/cmm (130-400); Red Blood Count 4.12 10^6/uL (4.1-5.3); Red Cell Distribution Width 17.3 % (12.1-15.1); White Blood Count 10.8 10^3/uL (4.0-10.0)
[2019-12-21 04:24] LABS: Mean Platelet Volume 12.9 fL (7.4-10.4)
[2019-12-21 04:41] LABS: ABG PCO2 33.7 mmHg (35-45); ABG PH Result 7.32 (7.35-7.45); Arterial Blood Gas Hematocrit 37.4 % (37-47); Base Excess ABG -7.9 mmol/L (-2.0-2.0); Blood Gas Sample Site Brachial, right; Blood Gas Sample Type Arterial; Blood Gas Tidal Volume 0.45; HCO3 ABG 17.3 mmol/L (22-26); Oxygen Device VENT; PO2 ABG 64.5 mmHg (80.0-100.0)
[2019-12-21 04:46] LABS: Alanine Aminotransferase 117 U/L (0-33); Albumin Level 2.6 g/dL (3.5-5.2); Alkaline Phosphatase 78 IU/L (35-105); Anion Gap 18.2 (5-19); Aspartate Amino Transferase 234 U/L (0-32); Blood Urea Nitrogen 40 mg/dL (8-23); Calcium 7.2 mg/dL (8.5-10.5); Carbon Dioxide 18 mmol/L (22-29); Chloride 99 mmol/L (98-107); Globulin 2.5 g/dL (1.3-4.6); Glucose 175 mg/dL (65-115); Magnesium 2.4 mg/dL (1.7-2.3); Osmolality Calculated 274 mOsm/kg (285-295); Potassium 4.2 mmol/L (3.5-5.1); Sodium 131 mmol/L (136-145); Total Bilirubin 0.9 mg/dL (0.15-1.2); Total Protein 5.1 g/dL (6.6-8.7)
[2019-12-21] MEDS: metroNIDAZOLE IV 500 MG/100 ML PREMIX 100 MG IV ×3 (06:24→22:21)
[2019-12-21] MEDS: acetaminophen 325 mg Tablet 650 MG PO ×2 (06:25→14:05)
[2019-12-21] MEDS: propofol 1,000 MG/100 ML INJ 8.8 MG IV (06:35)
--- NOTE | 2019-12-21 07:00 | XR_ITS ---
WS: [id number] CHEST XRAY TECHNIQUE: Portable chest. CLINICAL INFORMATION: resp failure COMPARISON: December 20, 2019 FINDINGS: Enteric tube with tip below the diaphragm. Endotracheal tube with tip above the hiwot. Heart: Cardiomegaly. Cardiac pacer. Lungs: Moderate chronic emphysematous changes. Small bilateral pleural effusions. Bibasilar atelectas is. Bones: Osteopenia. XR/XR chest 1V portable [id number] IMPRESSION: 1. Cardiomegaly with small bilateral pleural effusions. Left basilar atelectas is. 2. No focal pneumonia. 3. Enteric tube with tip below the diaphragm. Endotracheal tube with tip above the hiwot. 4. Cardiac pacer.
[2019-12-21] MEDS: pantoprazole 40 mg SDV IVP ×2 (07:15→19:16)
[2019-12-21] MEDS: norepinephrine 8 MG in dextrose 5 % 500 ML 30.5 MG IV (07:56)
--- NOTE | 2019-12-21 09:51 | P.PN_ITS ---
Subjective Subjective: Interval history: Intubated, sedated. Not in distress. Vitals/I&O/Wt Last Vital Signs Temp 102.2 F H 12/21/19 07:45 Pulse 94 12/21/19 09:45 Resp 12 12/21/19 09:45 BP 93/46 12/21/19 09:45 Pulse Ox 95 12/21/19 09:45 12/20/19 12/21/19 12/21/19 22:59 06:59 14:59 Intake Total 449.130 / 1161.196 1737.733 / 3303.529 268.987 / 268.987 Output Total 600 / 600 550 / 1150 Balance -150.870 / 1211.796 941.733 / 2153.529 268.987 / 268.987 Weight last 48 hrs Weight 102.603 kg Weight 98.248 kg Physical Exam Const: COMMON NORMALS: no acute distress OTHER: Intubated, sedated. HENMT: COMMON NORMALS: oropharynx normal Neck/C-Spine: COMMON NORMALS: no JVD Resp: COMMON NORMALS: normal respiratory effort and clear to auscultation bilaterally AUSCULTATION: clear to auscultation bilaterally Cardio: COMMON NORMALS: no JVD, regular rhythm, S1 normal heart sound present, S2 normal heart sound present and No murmurs present (Cardio) RHYTHM: regular rhythm HEART SOUNDS: S1 normal heart sound present and S2 normal heart sound present GI: COMMON NORMALS: Normal to inspection, nondistended, normoactive bowel sounds present, Soft to palpation and non-tender PALPATION: Yes Soft to palpation Extremity: COMMON NORMALS: no joint enlargement and no pedal edema Neuro: COMMON NORMALS: moves all extremities Skin: COMMON NORMALS: no rashes or lesions noted GENERAL SKIN EXAM: no rashes or lesions noted Urinary Catheter Management^: Boss: Cath Placed During This Visit: yes Reason for Continuing Indwelling Catheter: Accurate Measurement of Urinary Output in Critically Ill Patients Urinary Catheter Date of Insertion: 12/19/19 Urinary Catheter Time of Insertion: 14:00 Data : 12/21/19 03:25 12/21/19 03:25 Micro: Microbiology 12/19/19 11:20 Gram Stain - Final Sputum - Expectorated Sputum Sputum Culture - Final 12/20/19 02:33 Gram Stain - Preliminary Sputum - Endotracheal Tube Aspirate Sputum Culture - Preliminary A&P Assessment and plan (1) Hypotension: She is persistently hypotensive, currently on 60 mcg of Levophed. Has not required Sai-Synephrine today. As to me to view she is having worsened bilateral patchy infiltrates for now we will hold off additional IV fluid infusion. Continue Levophed. Attempt to wean as possible. Due to persistent hypotension will give also stress dose steroids starting with hydrocortisone 100 mg IV. Status: Acute (2) Sepsis: See documentation under pneumonia Repeat blood culture due to fever spike. Suspicion also of tickborne illness. Continue doxycycline empirically. Tick panel is pending. Today appears to have worsened thrombocytopenia, worsened liver function parameters. Mild hyponatremia. Peripheral smear. Initiate trophic feeds. Status: Acute (3) Acute respiratory failure: Oxygenation is somewhat worse today, perhaps with some fluid overload versus worsening pneumonia. Appears to have worsened bilateral patchy infiltrates on chest x-ray. For now we will hold off additional IV fluid. For now continue cefepime, vancomycin, doxycycline, Flagyl. Sputum culture pending. Urine bacterial antigens negative. Status: Acute (4) Pneumonia: Multilobar pneumonia on CT PE protocol performed yesterday. Recurrent fever. Cefepime, vancomycin, Levaquin. 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 She was also placed on doxycycline 1 day following admission secondary to history of tick exposure Await blood and sputum cultures I had COVID retested, with rapid test being negative again and PTC pending. We will keep in isolation until PTC is negative. With recurrent fever must also consider possible bacteremia as she recently had pacemaker placed 2 weeks ago will echocardiogram has been ordered and pending. Pacemaker site without concerns. Blood cultures negative to date. Status: Acute (5) Acute kidney injury: Continue to support blood pressure. Will request renal ultrasound. Renal function first to be worsening. Hold off additional Lasix. Will hold off additional IV fluid due to worsening hypoxia, worsening patchy infiltrates. Will check CK. At home appears was taking naproxen, lisinopril. Concern for also contrast- induced nephropathy with recent CTA. Status: Acute (6) Elevated troponin: Type II. No evidence of acute myocardial infarction Status: Acute (7) Thrombocytopenia: Heparin products had been held. Pending tick panel. Continue exercycle empirically. Requested peripheral smear. Pantoprazole, cefepime were started after thrombocytopenia was worsening. Status: Acute Additional A&P Information Metabolic acidosis. Secondary to sepsis, renal failure. Continue to manage underlying causes. Transaminitis. Unremarkable hepatitis panel. Has not had any abdominal discomfort. Development of this is likely secondary to sepsis. GB ultrasound ordered. Could consider CT but secondary to current clinical status would like patient to be more stable. History of tick bites. Doxycycline. Note that she has become leukopenic as well as thrombocytopenic which could be indicative of tickborne disease although sepsis from pneumonia is also possible. Acute hypoxic respiratory failure. Differential includes CHF, worsening pneum onia, PE. No large PE noted on CTA. TTE pending. Lasix on hold. Hold IVF. History of CHF awaiting echocardiogram. History of COPD. Continue nebs History of coronary artery disease. Asymptomatic. Hypertension. For now continue home medications Multiple other medical problems as listed in her past medical history Attestations Medical Necessity Statement*: Continue admission for assessment management of septic shock, pneumonia, tickborne illness, status post recent pacemaker placement. Critical Care Time: In addition to noncritical issues 40 minutes critical care time spent on assessment management of septic shock, persistent hypotension, worsening of hypoxia, volume status, thrombocytopenia which is worsening worsening acute kidney injury. 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
[2019-12-21 10:12] LABS: LAB Peripheral Smear Sent for Review
[2019-12-21] MEDS: hydrocortisone 100 mg/2 mL SDV IVP ×2 (10:52→22:22)
[2019-12-21] MEDS: doxycycline 100 MG in sodium chloride 0.9% (plus) 100 ML IV ×2 (10:52→22:21)
[2019-12-21 11:00] LABS: Vancomycin Trough 24.3 ug/mL (10-15)
--- NOTE | 2019-12-21 11:14 | PC.NURSE ---
Tube feedings, Pulmacore, started at 20 ml/hr with 30 mL q8 with free water.
--- NOTE | 2019-12-21 11:23 | PC.NURSE ---
Report given to JAMIA Little, at this time to assume care of this patient.
[2019-12-21 11:26] LABS: Creatine Phosphokinase 3714 U/L (26-192)
[2019-12-21 12:03] LABS: Lyme AB Screen <0.90 index
[2019-12-21 13:48] LABS: Glucose Point of Care 153 mg/dL (70-110)
[2019-12-21] MEDS: propofol 1,000 MG/100 ML INJ 11.8 MG IV (14:05)
--- NOTE | 2019-12-21 14:08 | PC.RESP ---
PULMONARY REHAB INFORMATION SENT TO PATIENT.
--- NOTE | 2019-12-21 15:44 | PC.NURSE ---
Yajaira ring left hand 3rd finger I removed patient's ring due to edema and concerns for poor circulation to finger. Removed ring using gel pack and rotating ring off of the finger. I did place ring back on the patient's pinky finger and tape it in place. Ring was snug on pinky finger. Will continue to assess finger. Patients ring/3rd finger had good cap refill after ring removal. No other jewelry noted.
[2019-12-21 15:52] LABS: Coronavirus Lab Test PTC Negative
--- NOTE | 2019-12-21 16:14 | PC.NURSE ---
Covid negative Patient's family called and notified of results, will be allowed visitor.
--- NOTE | 2019-12-21 16:58 | PC.NURSE ---
Yajaira don sent home with patient's daughter, Magalie Diaz, per daughters request. This was done.
--- NOTE | 2019-12-21 17:06 | DCPLANNER ---
Pg 2 of IM updated and explained to Sister; Magalie who is @ bedside. No questions. Copy provided.
[2019-12-21] MEDS: norepinephrine 8 MG in dextrose 5 % 500 ML 26.7 MG IV (17:49)
[2019-12-21 18:15] LABS: Glucose Point of Care 161 mg/dL (70-110)
[2019-12-21 19:37] LABS: Alanine Aminotransferase 142 U/L (0-33); Albumin Level 2.5 g/dL (3.5-5.2); Alkaline Phosphatase 87 IU/L (35-105); Anion Gap 20.6 (5-19); Aspartate Amino Transferase 271 U/L (0-32); Blood Urea Nitrogen 49 mg/dL (8-23); Calcium 7.5 mg/dL (8.5-10.5); Carbon Dioxide 17 mmol/L (22-29); Chloride 97 mmol/L (98-107); Globulin 2.8 g/dL (1.3-4.6); Glucose 178 mg/dL (65-115); Osmolality Calculated 273 mOsm/kg (285-295); Potassium 4.6 mmol/L (3.5-5.1); Sodium 130 mmol/L (136-145); Total Bilirubin 0.8 mg/dL (0.15-1.2); Total Protein 5.3 g/dL (6.6-8.7)
[2019-12-21 20:14] LABS: Creatine Phosphokinase 3140 U/L (26-192)
[2019-12-21] MEDS: cefepime 2,000 MG in sodium chloride 0.9% (plus) 50 ML 100 MG IV (23:45)
[2019-12-21] MEDS: levofloxacin-dextrose 5 % 750 MG/150 ML PREMIX 100 MG IV (23:45)
[2019-12-22] VITALS (115 sets, daily range): BP systolic 73–131; BP diastolic 40–81; PULSE 75–91; RESP 14–17; TEMP 36.3–36.9; O2SAT 89–100
[2019-12-22] MEDS: propofol 1,000 MG/100 ML INJ 14.7 MG IV (00:12)
[2019-12-22 00:58] LABS: Glucose Point of Care 157 mg/dL (70-110)
[2019-12-22] MEDS: ipratropium-albuterol 3 mL Neb INHALATION ×6 (03:26→23:00)
[2019-12-22] MEDS: vancomycin 1,000 MG in sodium chloride 0.9% 250 ML 250 MG IV (04:17)
[2019-12-22 04:44] LABS: Basophils # 0.1 10^3/uL (0.0-0.1); Basophils % 0.4 %; Eosinophils % 0.1 %; Hematocrit 35.8 % (37.0-47.0); Hemoglobin 10.7 g/dL (11.5-15.3); Lymphocytes # 0.9 10^3/uL (0.8-4.8); Lymphocytes % 4.4 %; Mean Corpuscular HGB Conc 29.9 g/dL (30.0-36.0); Mean Corpuscular Hemoglobin 27.4 pg (28.0-34.0); Mean Corpuscular Volume 91.6 fL (81-99); Monocytes % 4.7 %; Neutrophils # 17.53 10^3/uL (1.8-7.7); Nucleated Red Blood Cells % 0 %; Platelet Count 54 10^3/cmm (130-400); Red Blood Count 3.91 10^6/uL (4.1-5.3); Red Cell Distribution Width 17.6 % (12.1-15.1); White Blood Count 20.2 10^3/uL (4.0-10.0)
[2019-12-22 04:44] LABS: Blood Gas Operator Identificat JB; Blood Gas Sample Site Brachial, left; Blood Gas Sample Type Arterial; Blood Gas Tidal Volume 0.45; Oxygen Device VENT
[2019-12-22 05:11] LABS: Alanine Aminotransferase 136 U/L (0-33); Albumin Level 2.5 g/dL (3.5-5.2); Alkaline Phosphatase 65 IU/L (35-105); Anion Gap 19.6 (5-19); Aspartate Amino Transferase 193 U/L (0-32); Blood Urea Nitrogen 64 mg/dL (8-23); Carbon Dioxide 17 mmol/L (22-29); Chloride 97 mmol/L (98-107); Globulin 2.9 g/dL (1.3-4.6); Glucose 162 mg/dL (65-115); Osmolality Calculated 271 mOsm/kg (285-295); Potassium 4.6 mmol/L (3.5-5.1); Sodium 129 mmol/L (136-145); Total Bilirubin 0.6 mg/dL (0.15-1.2); Total Protein 5.4 g/dL (6.6-8.7)
[2019-12-22] MEDS: sodium bicarbonate 150 MEQ in dextrose 5% 1,000 ML IV ×2 (05:28→15:14)
[2019-12-22 05:37] LABS: Glucose Point of Care 138 mg/dL (70-110)
[2019-12-22 05:39] LABS: Creatine Phosphokinase 2526 U/L (26-192)
--- NOTE | 2019-12-22 06:00 | XRR_ITS ---
PROCEDURE INFORMATION: Exam: XR Chest, 1 View Exam date and time: 12/22/2019 4:51 AM Age: 84 years old Clinical indication: Other: Hypoxia TECHNIQUE: Imaging protocol: XR of the chest Views: 1 view. COMPARISON: CR XR chest 1V portable [id number] 12/21/2019 5:42 AM FINDINGS: Tubes, catheters and devices: There is an ET tube in place with the tip positioned 4.0 cm superior to the hiwot. Two lead pacemaker device. Lungs: There are bilateral perihilar and left lung base hazy opacities. There are pulmonary parenchymal calcifications consistent with remote granulomatous organism exposure. Pleural space: Left pleural effusion is similar to the prior study. Heart/Mediastinum: The heart border is obscured. Vasculature: There is calcified plaque in the thoracic aorta. Bones/joints: Unremarkable. Other findings: G-tube partially visualized. XR/XR chest 1V portable [id number] IMPRESSION: 1. Bilateral perihilar and left lung base hazy opacities. Differential includes pneumonia and pulmonary edema. 2. Left pleural effusion is similar to the prior study.
--- NOTE | 2019-12-22 06:14 | PC.NURSE ---
Shift Events: CK remains elevated at 2526. Patient's abdomen is more distended and firm; Abdominal US and ECHO ordered. ABG shows Metabolic Acidosis; D5 with BiCarb initiated. Remains mechanically ventilated and afebrile. Moves all extremities equally and opens eyes to name. Will occasionally follow commands. All other VSS.
[2019-12-22 06:19] LABS: Slide Review Slide Review Perform
[2019-12-22] MEDS: propofol 1,000 MG/100 ML INJ 11.8 MG IV ×2 (06:32→07:36)
[2019-12-22] MEDS: metroNIDAZOLE IV 500 MG/100 ML PREMIX 100 MG IV ×3 (06:33→23:48)
--- NOTE | 2019-12-22 07:28 | USCV_ITS ---
Jozef Kate Age: 84 Gender: F : 1935 Exam Date: 12/22/2019 06:26 Ordering Phys: Mitch Maxwell MD Technologist: Dianne Cota [place]am [place] [facility] [place]: CHF BP: 119 / 51 HR: 85 Rhythm: Sinus Technical Quality: Very technically difficult study MEASUREMENTS (Male / Female) Normal Values 2D ECHO LV Diastolic Diameter PLAX 3.8 cm 4.2 - 5.9 / 3.9 - 5.3 cm LV Systolic Diameter PLAX 2.0 cm LV Chamber Size 4.1 cm IVS Diastolic Thickness 1.4 cm 0.6 - 1.0 / 0.6 - 0.9 cm IVS Systolic Thickness 1.9 cm LVPW Diastolic Thickness 1.3 cm 0.6 - 1.0 / 0.6 - 0.9 cm LVPW Systolic Thickness 1.7 cm RV Chamber Size 3.2 cm LVOT Diameter 2.0 cm LV Ejection Fraction 2D Teich 79.8 % LA Diameter 4.9 cm LA Width 2.7 cm LA Height 4.1 cm RA Width 3.7 cm RA Height 4.6 cm Aorta at Sinotubular Diameter 2.9 cm M-MODE LV Diastolic Diameter MM 3.5 cm 4.2 - 5.9 / 3.9 - 5.3 cm LV Systolic Diameter MM 2.8 cm LV Ejection Fraction MM Teich 42.2 % IVS Diastolic Thickness MM 1.8 cm 0.6 - 1.0 / 0.6 - 0.9 cm IVS Systolic Thickness MM 1.7 cm LVPW Diastolic Thickness MM 1.6 cm 0.6 - 1.0 / 0.6 - 0.9 cm LVPW Systolic Thickness MM 1.1 cm RV Diastolic Diameter MM 2.4 cm Aortic Annulus Diameter 3.0 cm LA Ao Ratio MM 1.6 MV E Point Septal Separation 0.6 cm DOPPLER AV Peak Velocity 155.0 cm/s LVOT Peak Velocity 78.0 cm/s AV Area Cont Eq vti 2.1 cm squared AV Area Cont Eq pk 1.6 cm squared MV Area PHT 3.7 cm squared Mitral E to A Ratio 1.0 MV E' Velocity 5.0 cm/s Mitral E to MV E' Ratio 13.3 Mitral E to LV E' Lateral Ratio 15.4 Mitral E to LV E' Septal Ratio 11.9 TR Peak Velocity 288.3 cm/s TR Peak Gradient 33.3 mmHg TR Mean Velocity 202.1 cm/s TR Mean Gradient 19.0 mmHg TR Velocity Time Integral 100.2 cm TV Peak E Velocity 77.0 cm/s Right Atrial Pressure 15.0 mmHg Pulmonary Artery Systolic Pressu 48.2 mmHg PV Peak Velocity 81.0 cm/s RV Acceleration Time 0.1 s RV Ejection Time 0.4 s RV AcT/ET 0.3 FINDINGS Left Ventricle Normal left ventricular size. Sleep LV function appears normal. Regional wall motion abnormalities cannot be assessed because of technically challenging study. Diastolic dysfunction is noted. Right Ventricle The right ventricle is normal in size and function. Pacemaker lead is noted Right Atrium The right atrium is normal in size. Pacemaker lead is noted Left Atrium The left atrium is normal in size. Mitral Valve Structurally normal mitral valve without significant stenosis or prolapse. There is no mitral regurgitation. Aortic Valve Aortic valve is not well-visualized. There is no aortic regurgitation or aortic stenosis. Tricuspid Valve Limited visualization. Mild TR is noted. RA pressure is elevated. RVSP is 45 to 50 mmHg. Moderate pulmonary hypertension is noted. Pulmonic Valve Structurally normal pulmonic valve without significant stenosis. There is no pulmonic regurgitation. Pericardium Small pericardial effusion Aorta Normal ascending aorta dimension. CONCLUSIONS This is a technically very difficult study. Limited visualization of LV. Grossly LV function appears normal, however, repeat limited study with contrast to better evaluate EF and regional wall motion abnormalities. Diastolic dysfunction is noted Moderate pulmonary hypertension is present. Small pericardial effusion is present. Gaston Stewart MD (Electronically Signed) Final Date: 22 December 2019 12:21 S
[2019-12-22] MEDS: pantoprazole 40 mg SDV IVP ×2 (07:35→19:18)
--- NOTE | 2019-12-22 08:16 | PC.NURSE ---
On am assessment, pt residual per tube feed was >550 ml. No bowel sounds heard. Tube feeding is running at 20ml hour. This was turned off and Dr. Liz notified.
--- NOTE | 2019-12-22 08:16 | PC.NURSE ---
This nurse did an assessment on patient and abd was round, firm and distended. Bowel sounds were absent. Residual was checked and was noted at 550ml. Tube feeding was stopped and Dr was notified.
[2019-12-22 08:24] LABS: ABG PCO2 45.8 mmHg (35-45); ABG PH Result 7.15 (7.35-7.45); Base Excess ABG -12.6 mmol/L (-2.0-2.0); PO2 ABG 87.8 mmHg (80.0-100.0)
[2019-12-22 08:57] LABS: Glucose Point of Care 169 mg/dL (70-110)
[2019-12-22] MEDS: norepinephrine 8 MG in dextrose 5 % 500 ML 34.3 MG IV (09:13)
[2019-12-22 09:16] LABS: Bilirubin Urine Neg (NEGATIVE); Blood Urine 3+ (Negative); Glucose Urine UA Trace (Normal); Ketones Urine 1+ (Negative); Nitrate Urine Negative (Negative); Protein Urine 3+ (Negative); Specific Gravity, Urine 1.015 (1.005-1.030); Urine Appearance SL Hazy (CLEAR); Urine Color Amber (Yellow)
[2019-12-22 09:17] LABS: Add Urine Microscopic? YES; Leukocyte Esterase Urine 1+ (Negative); Urobilinogen Urine Norm (Negative)
--- NOTE | 2019-12-22 09:20 | P.PN_ITS ---
Subjective Subjective: Interval history: She is under sedation, although wakes up little bit, minimally opens her eyes, does not appear to be awake enough to answer questions or follow commands. Vitals/I&O/Wt Last Vital Signs Temp 97.3 F L 12/22/19 05:45 Pulse 78 12/22/19 08:30 Resp 16 12/22/19 07:39 BP 116/60 12/22/19 08:30 Pulse Ox 95 12/22/19 08:30 12/21/19 12/22/19 12/22/19 22:59 06:59 14:59 Intake Total 434.050 / 946.020 193.1 / 1139.120 12.587 / 12.587 Output Total 200 / 350 50 / 400 580 / 580 Balance 234.050 / 596.020 143.1 / 739.120 -567.413 / -567.413 Weight last 48 hrs Weight 105.506 kg Weight 105.506 kg Weight 102.603 kg Physical Exam Const: COMMON NORMALS: no acute distress OTHER: Intubated, sedated. HENMT: COMMON NORMALS: oropharynx normal Neck/C-Spine: COMMON NORMALS: no JVD Resp: COMMON NORMALS: normal respiratory effort and clear to auscultation bilaterally AUSCULTATION: clear to auscultation bilaterally Cardio: COMMON NORMALS: no JVD, regular rhythm, S1 normal heart sound present, S2 normal heart sound present and No murmurs present (Cardio) RHYTHM: regular rhythm HEART SOUNDS: S1 normal heart sound present and S2 normal heart sound present GI: COMMON NORMALS: Normal to inspection, nondistended, normoactive bowel sounds present, Soft to palpation and non-tender PALPATION: Yes Soft to palpation OTHER: Appears to be more distended. Extremity: COMMON NORMALS: no joint enlargement OTHER: 1+ leg edema Neuro: COMMON NORMALS: moves all extremities Skin: COMMON NORMALS: no rashes or lesions noted GENERAL SKIN EXAM: no rashes or lesions noted Urinary Catheter Management^: Boss: Cath Placed During This Visit: yes Reason for Continuing Indwelling Catheter: Accurate Measurement of Urinary Output in Critically Ill Patients Urinary Catheter Date of Insertion: 12/19/19 Urinary Catheter Time of Insertion: 14:00 Data : 12/22/19 04:19 12/22/19 04:19 Micro: Microbiology 12/21/19 10:15 Blood Culture - Preliminary Blood SPECIMEN COLLECTED 12/21/19 10:35 Blood Culture - Preliminary Blood SPECIMEN COLLECTED 12/19/19 11:20 Gram Stain - Final Sputum - Expectorated Sputum Sputum Culture - Final 12/20/19 02:33 Gram Stain - Preliminary Sputum - Endotracheal Tube Aspirate Sputum Culture - Preliminary A&P Assessment and plan (1) Hypotension: This appears to be showing gradual improvement. She is still requiring Levophed, although is down to 9 mcg. Continue attempts to wean. At this time continue stress dose steroids. As to me to view she is having worsened bilateral patchy infiltrates for now we will hold off additional IV fluid infusion. Continue Levophed. Attempt to wean as possible. Due to persistent hypotension will give also stress dose steroids starting with hydrocortisone 100 mg IV. Status: Acute (2) Sepsis: With persistent septic shock. Suspicion also of tickborne illness. Continue doxycycline empirically. Tick panel is pending. Today appears to have worsened thrombocytopenia, worsened liver function parameters. Mild hyponatremia. Peripheral smear in process. Residual >550mL. Feeds held. Abdominal distention, although abdomen soft. Will assess CTAP. LA 2.6. For now non-contrast study due to renal injury. Discused w aging room operator. Appreciate consultation. Discussed w daughter. Status: Acute (3) Acute respiratory failure: CXR w bilateral perihilar and L lung base opacities. Oxygenation steady. For now continue cefepime, vancomycin (dose adjusted as elevated level, alternatives considered w pharmacy, but no other good option at this time), doxycycline, Flagyl. Sputum culture pending. Urine bacterial antigens negative. Status: Acute (4) Pneumonia: Multilobar pneumonia. Recurrent fever. Cefepime, vancomycin, Levaquin. 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 She was also placed on doxycycline 1 day following admission secondary to history of tick exposure Await blood and sputum cultures I had COVID retested, negative. With recurrent fever consider bacteremia, but blood cultures repeatedly negative so far. TTE pending. Pacemaker site without concerns. Status: Acute (5) Acute kidney injury: Continue to support blood pressure. No hydronephrosis on renal ultrasound. Renal function first to be worsening. Hold off additional Lasix. Will hold off additional IV fluid due to worsening hypoxia, worsening patchy infiltrates. CK with some elevation. At home appears was taking naproxen, lisinopril. Concern for also contrast- induced nephropathy with recent CTA. Apprecieate nephrology recs. Status: Acute (6) Elevated troponin: Type II. No evidence of acute myocardial infarction Status: Acute (7) Thrombocytopenia: Stabilized. Low in 50s. Heparin products had been held. Pending tick panel. Continue doxy empirically. Requested peripheral smear. In process. Pantoprazole, cefepime were started after thrombocytopenia was worsening. Status: Acute Additional A&P Information Metabolic acidosis. Received bicarbonate. Secondary to sepsis, renal failure. Continue to manage underlying causes. Transaminitis. Unremarkable hepatitis panel. Has not had any abdominal discomfort. Development of this is likely secondary to sepsis. Heterogenous liver. Suspect injury secondary to hypotension, sepsis, possibly tick-borne illness. History of tick bites. Doxycycline. Note that she has become leukopenic as well as thrombocytopenic which could be indicative of tickborne disease although sepsis from pneumonia is also possible. Acute hypoxic respiratory failure. Differential includes CHF, worsening pneumonia, PE. No large PE noted on CTA. TTE pending. Lasix on hold. Hold IVF. History of CHF awaiting echocardiogram. History of COPD. Continue nebs History of coronary artery disease. Asymptomatic. Hypertension. For now continue home medications Multiple other medical problems as listed in her past medical history Attestations Medical Necessity Statement*: Continue admission for assessment and management of septic shock, PNA, ANAHY, metabolic acidosis, suspected tick borne illness. 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
[2019-12-22 09:28] LABS: Bacteria Urine 2+; Mucus Urine TRACE; RBC Urine 15-25 /hpf (0-2); Squamous Epithelial Cell Urine 0-4 (0-5)
[2019-12-22 09:29] LABS: Add Urine Culture? Yes; WBC Urine 0-4 /hpf (0-5)
[2019-12-22 09:33] LABS: Lactate (Lactic Acid level) 2.6 mmol/L (0.5-2.2)
--- NOTE | 2019-12-22 09:51 | CT_ITS ---
WS: [id number] CT ABDOMEN PELVIS TECHNIQUE: Noncontrast CT of the abdomen and pelvis with coronal and sagittal reformatted images. CLINICAL INFORMATION: distention COMPARISON: CT . Ultrasound December 22, 2019 DLP: 1222.[address] scans at [facility] use at least one of these dose optimization techniques: automat ed exposure control; mA and/or kV adjustment per patient size (includes targeted exams where dose is matched to clinical indication); or iterative reconstruction. FINDINGS: Small bilateral pleural effusions with compressive atelectasis in the lung bases. Enteric tube with t ip in stomach. Mild hepatomegaly. Noncontrast liver otherwise appears unremarkable. Noncontrast splee n is unremarkable. Vicarious excretion of contrast in the gallbladder from prior CTA chest. Gallbladd er is otherwise normal. Adrenal glands are normal. Normal kidneys bilaterally with mild cortical atrophy. No hydronephrosis. Pancreatic fatty atrophy. Normal caliber abdominal aorta. Aortic calcification. Boss catheter in place. Rectal tube. Air distended sigmoid colon which is otherwise normal. No evide nce of small or large bowel obstruction. No abdominal lymphadenopathy. Aortic lymphadenopathy. No pelvic or inguinal lymphadenopathy. Small amount of ascites in the pelvis. Diffuse body wall anasarca. Spondylosis and ankylosis lumbar spine. CT/CT abdomen pelvis wo con [id number] IMPRESSION: 1. Small bilateral pleural effusions with compressive atelectasis in the lung bases right greater than left. Recommend correlation for pneumonia. 2. Enteric tube with tip in stomach. 3. Diffuse body wall anasarca with small amount of pelvic ascites. 4. Air distended sigmoid colon. No evidence of small or large bowel obstructio n. 5. Boss catheter and rectal tube in place. 6. No hydronephrosis in either kidney. 7. Mild hepatomegaly. Liver otherwise unremarkable.
--- NOTE | 2019-12-22 10:10 | US_ITS ---
WS: [id number] ULTRASOUND ABDOMEN CLINICAL INFORMATION: transaminitis COMPARISON: None. FINDINGS: Technically difficult examination. Liver Size: Enlarged Craniocaudal length: 20.0 cm. Echogenicity: Diffuse decreased echogenicity Surface nodularity: None. Mass (size and location): None. Bile ducts Intrahepatic ducts: Normal. Common bile duct diameter: 0.5 cm. Gallbladder Normal. Gallstones: None. Gallbladder sludge: None. Gallbladder wall thickening: None. Pericholecystic fluid: None. Sonographic Redd sign: Absent. Pancreas Normal as visualized. Spleen is not seen Right kidney: Normal. Hydronephrosis: None. Size: 12.5 cm x 6.8 cm x 5.5 cm Left kidney: Normal. Hydronephrosis: None. Size: 10.7 cm x 5.3 cm x 4.9 cm. Abdominal aorta and IVC Visualized portions are normal. Ascites: Small amount of free fluid: Moderate. US/US abdomen complete* [id number] IMPRESSION: 1. Enlarged diffuse hypoechoic liver can be seen with acute hepatitis and diff use hepatic edema. Recommend correlation with liver function tests. 2. Normal gallbladder. 3. No hydronephrosis in either kidney. 4. Spleen is not visualized.
[2019-12-22 10:23] LABS: Urine Creatinine 77 mg/dL (28-217)
[2019-12-22] MEDS: hydrocortisone 100 mg/2 mL SDV IVP ×2 (10:39→22:30)
[2019-12-22 11:06] LABS: Urea Nitrogen,Urine Random 180 mg/dL
[2019-12-22] MEDS: doxycycline 100 MG in sodium chloride 0.9% (plus) 100 ML IV ×2 (11:10→22:29)
--- NOTE | 2019-12-22 14:31 | P.CONIM_ITS ---
Providers/Reason For Consult Consulting Physican/Specialty*: Dr. Lovell Datar/Pulmonory Critical Care Reason for Consult*: Septic shock with multiorgan failure Attending Physician: Hector Guzman History of Present Illness History of Present Illness Kate Haskins is a 84 year old female with past medical history atrial fibrillation, CHF, COPD, CAD, hyperlipidemia, peripheral neuropathy, restless leg syndrome, sick sinus syndrome, history of appendectomy, history of bilateral knee arthroplasty, pacemaker presented to ED with chief complaint of weakness and shaking and fevers admitted initially for pneumonia, COPD exacerbation, ANAHY and troponinemia but on day 2 desaturated and went into respiratory failure and hemodynamic instability requiring intubation and pressors. Consult called for evaluation and management of septic shock with multiorgan failure. Review of Systems General: Reports: ROS unobtainable due to endotracheal tube, ROS unobtainable due to medical condition and ROS unobtainable due to mental status Meds/Allergies Home Medications and Allergies Home Medications Medication Instructions Recorded Confirmed Last Taken Type calcium carbonate-vitamin D3 1 tab PO DAILY 12/18/19 12/18/19 Unknown History [Calcium 500 + D] cetirizine [Zyrtec] 10 mg PO QPM 12/18/19 12/18/19 12/17/19 History diltiazem HCl 120 mg PO DAILY 12/18/19 12/18/19 Unknown History escitalopram oxalate See Rx Instructions .ROUTE .COMPLEX 12/18/19 12/18/19 Unknown History fluticasone propionate 2 spray INTRANASAL DAILY 12/18/19 12/18/19 Unknown History furosemide 40 mg PO BID 12/18/19 12/18/19 12/18/19 History gabapentin See Rx Instructions .ROUTE .COMPLEX 12/18/19 12/18/19 12/18/19 History hydrocodone-acetaminophen 1 tab PO Q6H PRN 12/18/19 12/18/19 12/17/19 History isosorbide mononitrate 120 mg PO QAM 12/18/19 12/18/19 12/18/19 History levocetirizine 5 mg PO QPM 12/18/19 12/18/19 12/17/19 History lisinopril 10 mg PO BID 12/18/19 12/18/19 12/18/19 History naproxen sodium [Aleve] 220 mg PO PRN 12/18/19 12/18/19 12/17/19 History omeprazole 20 mg PO DAILY 12/18/19 12/18/19 12/18/19 History Allergies Allergy/AdvReac Type Severity Reaction Status Date / Time ibuprofen [From Motrin] Allergy Unknown Verified 12/18/19 12:19 Penicillins Allergy Unknown Verified 12/18/19 12:19 Current Medications Current Medications Generic Name Dose Route Start Last Admin Trade Name Freq PRN Reason Stop Dose Admin Acetaminophen 650 mg 12/18/19 14:42 12/21/19 14:05 Tylenol PO 650 mg Q6H PRN Administration Mild/Mod Pain Or Temp >/= 101 Albuterol/Ipratropium 3 ml 12/20/19 04:00 12/22/19 11:11 Duoneb INHALATION 3 ml Q4H.RESPIRATORY OPAL Administration Hydrocortisone Sodium Succinate 100 mg 12/21/19 10:30 12/22/19 10:39 Solu-Cortef Inj IVP 100 mg Q12H OPAL Administration Fentanyl 1,000 mcg/ Sodium 100 mls @ 0 mls/hr 12/19/19 20:30 12/20/19 09:09 Chloride IV 0 mcg/hr .Q0M OPAL 0 mls/hr Titration Protocol Per Protocol Phenylephrine HCl 25 mg/ 252.5 mls @ 0 mls/hr 12/19/19 21:00 12/20/19 17:04 Sodium Chloride IV Infused .Q0M OPAL Titration Protocol Per Protocol Metronidazole 500 mg in 100 mls @ 100 mls/hr 12/19/19 23:00 12/22/19 06:33 Flagyl Iv IV 100 mls/hr Q8H OPAL Administration Protocol Doxycycline Hyclate 100 mg/ 100 mls @ 100 mls/hr 12/19/19 23:00 12/22/19 12:31 Sodium Chloride IV Infused Q12H OPAL Infusion Protocol Propofol 1,000 mg in 100 mls @ 0 mls/hr 12/20/19 02:00 12/22/19 14:09 Diprivan IV 15 mcg/kg/min .Q0M OPAL 8.8 mls/hr Titration Protocol Per Protocol Sodium Chloride 1,000 mls @ 50 mls/hr 12/20/19 07:30 12/21/19 03:47 Sodium Chloride 0.9% IV 50 mls/hr .Q20H OPAL Administration Cefepime HCl 2,000 mg/ Sodium 50 mls @ 100 mls/hr 12/21/19 00:00 12/21/19 23:45 Chloride IV 100 mls/hr Q24H OPAL Administration Protocol Vancomycin HCl 1,000 mg/ 250 mls @ 250 mls/hr 12/22/19 05:00 12/22/19 04:17 Sodium Chloride IV 250 mls/hr Q36H OPAL Administration Protocol Sodium Bicarbonate 150 meq/ 1,150 mls @ 150 mls/hr 12/22/19 05:00 12/22/19 05:28 Dextrose IV 150 mls/hr .Q7H40M OPAL Administration Norepinephrine Bitartrate 8 mg 508 mls @ 0 mls/hr 12/22/19 08:00 12/22/19 11:53 / Dextrose IV 7 mcg/min .Q0M OPAL 26.7 mls/hr Titration Protocol Per Protocol Pantoprazole Sodium 40 mg 12/20/19 07:30 12/22/19 07:35 Protonix IVP 40 mg Q12H OPAL Administration PFSH Acute PFSH: Medical History Atrial fibrillation CHF (congestive heart failure) COPD (chronic obstructive pulmonary disease) Chronically on 3 l Coronary artery disease Hyperlipidemia Peripheral neuropathy Restless leg syndrome Sick sinus syndrome Surgical History History of appendectomy History of bilateral knee arthroplasty Pacemaker Previous back surgery Family History Other CAD (coronary artery disease) Diabetes Social History Smoking and tobacco status: never smoked Alcohol intake: never Vitals/I&O/Wt Last Vital Signs Temp 97.3 F L 12/22/19 05:45 Pulse 87 12/22/19 12:00 Resp 15 12/22/19 13:01 BP 104/53 12/22/19 12:00 Pulse Ox 100 12/22/19 12:00 12/21/19 12/22/19 12/22/19 22:59 06:59 14:59 Intake Total 434.050 / 946.020 293.1 / 1239.120 274.947 / 274.947 Output Total 200 / 350 50 / 400 580 / 580 Balance 234.050 / 596.020 243.1 / 839.120 -305.053 / -305.053 Weight last 48 hrs Weight 232 lb 9.6 oz Weight 232 lb 9.6 oz Weight 226 lb 3.2 oz Physical Exam Narrative: EXAM NARRATIVE: PHYSICAL EXAM: General: lying in bed, sedated and intubated. 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 SKIN: no rash Urinary Catheter Management^: Boss: Cath Placed During This Visit: yes Reason for Continuing Indwelling Catheter: Accurate Measurement of Urinary Output in Critically Ill Patients Urinary Catheter Date of Insertion: 12/19/19 Urinary Catheter Time of Insertion: 14:00 Data Micro: Micro: Microbiology 12/20/19 02:33 Gram Stain - Preli minary Sputum - Endotrac heal Tube Aspirate Sputum Culture - F inal 12/21/19 18:45 MRSA Culture - Fin al Nose 12/21/19 10:15 Blood Culture - Pr eliminary Blood NEGATIVE TO REJI E 12/21/19 10:35 Blood Culture - Pr eliminary Blood NEGATIVE TO REJI E Other Data: Attestation for Other Data: I personally reviewed and interpreted the following: Other data: MICRO: Reviewed IMAGING: Images reviewed personally OTHER DATA: EKG/Telemetry reviewed: yes Discussions with other Providers: yes. Dr. Guzman A&P Assessment and plan (1) Thrombocytopenia: Status: Acute (2) Coronary artery disease: Status: Acute Qualifiers: Coronary Disease-Associated Artery/Lesion type: unspecified vessel or lesion type [place] vs. transplanted heart: unspecified whether [place] or transplanted heart Associated angina: with unspecified angina Qualified Code(s): I25.119 - Atherosclerotic heart disease of [place] coronary artery with unspecified angina pectoris (3) Acute kidney injury: Status: Acute (4) Pneumonia: Status: Acute Qualifiers: Pneumonia type: due to unspecified organism Laterality: bilateral Lung location: lower lobe of lung Qualified Code(s): J18.9 - Pneumonia, unspecified organism (5) Septic shock: Status: Acute Overall: 84-year-old female admitted to ICU for acute respiratory failure and hemodynamic instability likely in septic shock with multiorgan failure. NEURO: Sedated with fentanyl Opening eyes and at times following commands PULM: #Acute respiratory failure likely secondary to pneumonia #Questionable history of COPD On mechanical ventilation VC mode 450 TV/respiratory rate 14/FiO2 40%/PEEP 6 ABG today morning on 45% FiO2: 7.1 5/45/87/16/86% ABG reflective of normal anion gap metabolic acidosis likely due to RTA Continue cefepime, Flagyl, Doxy: Continue DuoNeb nebulizations every 4 hours CVS: #Shock likely due to sepsis Currently on vasopressors Levophed down to 7 MCG Try to keep map above 65 titrate Levophed accordingly Lactic acid improving-2.6 Echo 12/22/2019: Technically difficult study but grossly LV appear normal, diastolic dysfunction noted and moderate pulmonary hypertension with small pericardial effusion #Recent pacemaker placement Pacemaker insertion site no signs of infection noted GI: #Elevated LFTs likely due to hypotension #Abdominal distention likely due to ileus secondary to pressors, opiates -Keep n.p.o. for now -CT abdomen: A distended sigmoid colon but otherwise no small or large bowel obstruction. normal gallbladder -Add gentle bowel regimen-senna docusate at night/lactulose 15 twice daily - Monitor rectal tube output - Avoid hepatotoxic medications and monitor LFTs and CK RENAL: #ANAHY over? CKD secondary to septic shock/rhabdomyolysis/contrast induced- prerenal progressing to ATN #Normal anion gap metabolic acidosis likely due to RTA -Worsening renal parameters -I/O/N: 1.2 L / 400 cc/+840 over last 24 hours; significantly reduced urine output -Monitor electrolytes and supplement accordingly -Bicarb drip to correct acidosis: Monitor calcium for hypocalcemia while on bicarb drip -Reduce IV fluids to 80 cc from 150 cc to correct CK; DC fluid if patient develops signs of fluid overload -Urine electrolytes, renal ultrasound -Patient needs CRRT in view of ongoing septic shock and worsening renal functions: Require renal consultation HEM: #Leukocytosis likely secondary to sepsis due to pneumonia/steroids COVID antigen and PCR both negative awaiting for final culture results and tick panel Meanwhile covering with cefepime, doxy, Flagyl DC Levaquin as Doxy will cover atypicals; and DC Vanco as MRSA nares negative Send for procalcitonin #Thrombocytopenia-no signs of bleeding Monitor platelets DVT prophylaxis Heparin for DVT prophylaxis is held due to thrombocytopenia-currently on SCDs ENDO: Monitor sugars and place on scale coverage to target sugars below 200 ID: #Septic shock likely secondary to pneumonia Reducing requirements of Levophed currently on 7 MCG from 14 Awaiting final cultures and tick panel Meanwhile covering with cefepime, doxy, Flagyl DC Levaquin as Doxy will cover atypicals; and DC Vanco as MRSA nares negative Monitor WBC and fevers Case discussed with RN, and Dr. Guzman hospitalist Overall impression: patient is still critically ill, requiring mechanical ventilation, pressor support to maintain blood pressure. At this point worsening renal functions with non-anion gap metabolic acidosis is concerning in view of ongoing septic shock even though covered with broad-spectrum antibiotics while final cultures are pending. Patient needs CRRT as soon as possible while it takes time for the antibiotics to treat the underlying sepsis. Consult Attestations Medical Necessity Statement: patient is still critically ill, requiring mechanical ventilation, pressor support to maintain blood pressure. At this point worsening renal functions with non-anion gap metabolic acidosis is concerning in view of ongoing septic shock Time Spent in Patient Care: Greater than 35 minutes (>than 50% of time spent in counselling and/or direct pt care on unit) . 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 transplanted heart: unspecified whether [place] or transplanted heart Associated angina: with unspecified angina Acute kidney injury N17.9 Pneumonia J18.9 Pneumonia type: due to unspecified organism Laterality: bilateral Lung location: lower lobe of lung Septic shock A41.9; R65.21 Time Spent (min) 45
--- NOTE | 2019-12-22 16:41 | PC.NURSE ---
Rectal tube was inserted per orders. Patient tolerated well.
--- NOTE | 2019-12-22 17:17 | PM.CONSULT ---
Providers/Reason For Consult Consulting Physican/Specialty*: Dayanara Montoya DO, telenephrology Reason for Consult*: Acute kidney injury Requesting Physcian: Hector Guzman Attending Physician: Hector Guzman History of Present Illness History of Present Illness Kate Haskins is a 84 year old female admitted with pneumonia, now with sepsis, ANAHY, VDRF. On norepinephrine gtt 7 mcg/min. minimal urine output Review of Systems General: Reports: ROS unobtainable due to endotracheal tube Meds/Allergies Home Medications and Allergies Home Medications Medication Instructions Recorded Confirmed Last Taken Type calcium carbonate-vitamin D3 1 tab PO DAILY 12/18/19 12/18/19 Unknown History [Calcium 500 + D] cetirizine [Zyrtec] 10 mg PO QPM 12/18/19 12/18/19 12/17/19 History diltiazem HCl 120 mg PO DAILY 12/18/19 12/18/19 Unknown History escitalopram oxalate See Rx Instructions .ROUTE .COMPLEX 12/18/19 12/18/19 Unknown History fluticasone propionate 2 spray INTRANASAL DAILY 12/18/19 12/18/19 Unknown History furosemide 40 mg PO BID 12/18/19 12/18/19 12/18/19 History gabapentin See Rx Instructions .ROUTE .COMPLEX 12/18/19 12/18/19 12/18/19 History hydrocodone-acetaminophen 1 tab PO Q6H PRN 12/18/19 12/18/19 12/17/19 History isosorbide mononitrate 120 mg PO QAM 12/18/19 12/18/19 12/18/19 History levocetirizine 5 mg PO QPM 12/18/19 12/18/19 12/17/19 History lisinopril 10 mg PO BID 12/18/19 12/18/19 12/18/19 History naproxen sodium [Aleve] 220 mg PO PRN 12/18/19 12/18/19 12/17/19 History omeprazole 20 mg PO DAILY 12/18/19 12/18/19 12/18/19 History Allergies Allergy/AdvReac Type Severity Reaction Status Date / Time ibuprofen [From Motrin] Allergy Unknown Verified 12/18/19 12:19 Penicillins Allergy Unknown Verified 12/18/19 12:19 Current Medications Current Medications Generic Name Dose Route Start Last Admin Trade Name Freq PRN Reason Stop Dose Admin Acetaminophen 650 mg 12/18/19 14:42 12/21/19 14:05 Tylenol PO 650 mg Q6H PRN Administration Mild/Mod Pain Or Temp >/= 101 Albuterol/Ipratropium 3 ml 12/20/19 04:00 12/22/19 15:20 Duoneb INHALATION 3 ml Q4H.RESPIRATORY OPAL Administration Hydrocortisone Sodium Succinate 100 mg 12/21/19 10:30 12/22/19 10:39 Solu-Cortef Inj IVP 100 mg Q12H OPAL Administration Fentanyl 1,000 mcg/ Sodium 100 mls @ 0 mls/hr 12/19/19 20:30 12/20/19 09:09 Chloride IV 0 mcg/hr .Q0M OPAL 0 mls/hr Titration Protocol Per Protocol Phenylephrine HCl 25 mg/ 252.5 mls @ 0 mls/hr 12/19/19 21:00 12/20/19 17:04 Sodium Chloride IV Infused .Q0M OPAL Titration Protocol Per Protocol Metronidazole 500 mg in 100 mls @ 100 mls/hr 12/19/19 23:00 12/22/19 14:57 Flagyl Iv IV 100 mls/hr Q8H OPAL Administration Protocol Doxycycline Hyclate 100 mg/ 100 mls @ 100 mls/hr 12/19/19 23:00 12/22/19 12:31 Sodium Chloride IV Infused Q12H OPAL Infusion Protocol Propofol 1,000 mg in 100 mls @ 0 mls/hr 12/20/19 02:00 12/22/19 14:09 Diprivan IV 15 mcg/kg/min .Q0M OPAL 8.8 mls/hr Titration Protocol Per Protocol Sodium Chloride 1,000 mls @ 50 mls/hr 12/20/19 07:30 12/21/19 03:47 Sodium Chloride 0.9% IV 50 mls/hr .Q20H OPAL Administration Cefepime HCl 2,000 mg/ Sodium 50 mls @ 100 mls/hr 12/21/19 00:00 12/21/19 23:45 Chloride IV 100 mls/hr Q24H OPAL Administration Protocol Vancomycin HCl 1,000 mg/ 250 mls @ 250 mls/hr 12/22/19 05:00 08/25/20 04:17 Sodium Chloride IV 250 mls/hr Q36H OPAL Administration Protocol Sodium Bicarbonate 150 meq/ 1,150 mls @ 80 mls/hr 12/22/19 05:00 12/22/19 15:14 Dextrose IV 150 mls/hr .[id number] OPAL Administration Norepinephrine Bitartrate 8 mg 508 mls @ 0 mls/hr 12/22/19 08:00 12/22/19 15:52 / Dextrose IV 5 mcg/min .Q0M OPAL 19.1 mls/hr Titration Protocol Per Protocol Pantoprazole Sodium 40 mg 12/20/19 07:30 12/22/19 07:35 Protonix IVP 40 mg Q12H OPAL Administration PFSH Acute PFSH: Medical History Atrial fibrillation CHF (congestive heart failure) COPD (chronic obstructive pulmonary disease) Chronically on 3 l Coronary artery disease Hyperlipidemia Peripheral neuropathy Restless leg syndrome Sick sinus syndrome Surgical History History of appendectomy History of bilateral knee arthroplasty Pacemaker Previous back surgery Family History Other CAD (coronary artery disease) Diabetes Social History Smoking and tobacco status: never smoked Alcohol intake: never Vitals/I&O/Wt Last Vital Signs Temp 97.3 F L 12/22/19 05:45 Pulse 86 12/22/19 16:00 Resp 15 12/22/19 15:27 BP 128/57 12/22/19 16:00 Pulse Ox 93 12/22/19 16:00 12/22/19 12/22/19 12/22/19 06:59 14:59 22:59 Intake Total 293.1 / 8583.640 5779.947 / 1524.947 106.355 / 1631.302 Output Total 50 / 400 580 / 580 Balance 243.1 / 839.120 944.947 / 944.947 106.355 / 1051.302 Weight last 48 hrs Weight 105.506 kg Weight 105.506 kg Weight 102.603 kg Physical Exam Urinary Catheter Management^: Boss: Cath Placed During This Visit: yes Reason for Continuing Indwelling Catheter: Accurate Measurement of Urinary Output in Critically Ill Patients Urinary Catheter Date of Insertion: 12/19/19 Urinary Catheter Time of Insertion: 14:00 Data Labs: Other Labs: cultures negative, CK 2126 7.15/46/88/ 455 FIO2 Micro: Micro: Microbiology 12/20/19 02:33 Gram Stain - Preli minary Sputum - Endotrac heal Tube Aspirate Sputum Culture - F inal 12/21/19 18:45 MRSA Culture - Fin al Nose 12/21/19 10:15 Blood Culture - Pr eliminary Blood NEGATIVE TO REJI E 12/21/19 10:35 Blood Culture - Pr eliminary Blood NEGATIVE TO REJI E Other Data: Other data: Abdominal US: 1. Enlarged diffuse hypoechoic liver can be seen with acute hepatitis and diffuse hepatic edema. Recommend correlation with liver function tests. 2. Normal gallbladder. 3. No hydronephrosis in either kidney. 4. Spleen is not visualized. ECHO: Grossly LV function appears normal, however, repeat limited study with contrast to better evaluate EF and regional wall motion abnormalities. Diastolic dysfunction is noted Moderate pulmonary hypertension is present. Small pericardial effusion is present. A&P Additional A&P Information Impression: 1. Acute kidney injury, oligoanuric, due to sepsis, contrast, mild rhabdomyolysis. Was on ACEi and possibly NSAID prior to admission 2. Combination metabolic and respiratory acidosis, on bicarbonate gtt 3. Hypervolemic hyponatremia Recommendation: She will likely needs renal replacement therapy in next 24 hours. CRRT is not available. Can try longer duration, low blood flow and low fluid removal on conventional HD machine daily. Continue sodium bicarb infusion, Repeat BMP and ABG now and in AM. Prognosis poor. Consult Attestations Medical Necessity Statement: critically ill Time Spent in Patient Care: Greater than 35 minutes Coding Level of Care Code Acute Clinical Program Manager for [facility]ing[facility]
[2019-12-22] MEDS: sennosides-docusate Tablet 1 TAB PO (17:33)
[2019-12-22 17:47] LABS: Glucose Point of Care 143 mg/dL (70-110)
[2019-12-22 18:09] LABS: ABG PCO2 47.8 mmHg (35-45); ABG PH Result 7.21 (7.35-7.45); Arterial Blood Gas Hematocrit 33.2 % (37-47); Base Excess ABG -8.3 mmol/L (-2.0-2.0); Blood Gas Sample Type Arterial; HCO3 ABG 19.3 mmol/L (22-26); PO2 ABG 78.6 mmHg (80.0-100.0)
[2019-12-22 18:10] LABS: Blood Gas Operator Identificat GD; Blood Gas Sample Site Brachial, right; Blood Gas Tidal Volume 0.45; Oxygen Device VENT
[2019-12-22 19:04] LABS: Blood Urea Nitrogen 68 mg/dL (8-23); Calcium 7.2 mg/dL (8.5-10.5); Carbon Dioxide 20 mmol/L (22-29); Chloride 91 mmol/L (98-107); Glucose 147 mg/dL (65-115); Osmolality Calculated 266 mOsm/kg (285-295); Sodium 127 mmol/L (136-145)
[2019-12-22 19:13] LABS: Anion Gap 20.5 (5-19); Potassium 4.5 mmol/L (3.5-5.1)
--- NOTE | 2019-12-22 20:02 | PC.NURSE ---
Abdomen Assessment Abdomen is large, distended and round. Bowel sounds are rare throughout, difficult to auscultate bowel sounds due to breathing pattern of abdomen. Rectal tube in place without any output. OG tube placement auscultated. OG placed to low intermittent suction, immediate return of 200ml of grainy/green output. Will continue to monitor.
[2019-12-22] MEDS: lactulose oral liq 20 gm/30 mL UDC 10 GM PO (20:50)
[2019-12-22] MEDS: propofol 1,000 MG/100 ML INJ 2.9 MG IV (23:12)
[2019-12-23] VITALS (110 sets, daily range): BP systolic 84–136; BP diastolic 38–66; PULSE 60–90; RESP 13–20; TEMP 36.6–37.1; O2SAT 90–100
[2019-12-23 00:39] LABS: Glucose Point of Care 134 mg/dL (70-110)
[2019-12-23] MEDS: cefepime 2,000 MG in sodium chloride 0.9% (plus) 50 ML 100 MG IV ×2 (00:51→23:30)
[2019-12-23] MEDS: ipratropium-albuterol 3 mL Neb INHALATION ×5 (03:36→23:33)
[2019-12-23] MEDS: sodium bicarbonate 150 MEQ in dextrose 5% 1,000 ML 80 MEQ IV ×2 (04:17→18:33)
[2019-12-23 04:35] LABS: Basophils # 0.1 10^3/uL (0.0-0.1); Basophils % 0.3 %; Hematocrit 30.3 % (37.0-47.0); Hemoglobin 9.4 g/dL (11.5-15.3); Lymphocytes # 0.8 10^3/uL (0.8-4.8); Lymphocytes % 4.9 %; Mean Corpuscular Hemoglobin 27.5 pg (28.0-34.0); Mean Corpuscular Volume 88.6 fL (81-99); Monocytes # 0.8 10^3/uL (0.2-0.9); Monocytes % 4.7 %; Neutrophils # 14.04 10^3/uL (1.8-7.7); Nucleated Red Blood Cells % 0.1 %; Platelet Count 48 10^3/cmm (130-400); Red Blood Count 3.42 10^6/uL (4.1-5.3); Red Cell Distribution Width 17.5 % (12.1-15.1); White Blood Count 15.8 10^3/uL (4.0-10.0)
[2019-12-23 04:51] LABS: ABG PCO2 47.1 mmHg (35-45); ABG PH Result 7.24 (7.35-7.45); Arterial Blood Gas Hematocrit 30.7 % (37-47); Base Excess ABG -7.3 mmol/L (-2.0-2.0); Blood Gas Allen Test Pos; Blood Gas Operator Identificat JB; Blood Gas Sample Site Radial, right; Blood Gas Sample Type Arterial; Oxygen Device VENT; PO2 ABG 75.1 mmHg (80.0-100.0)
[2019-12-23 04:52] LABS: Blood Gas Tidal Volume 0.45
[2019-12-23 04:57] LABS: Alanine Aminotransferase 103 U/L (0-33); Albumin Level 2.3 g/dL (3.5-5.2); Alkaline Phosphatase 60 IU/L (35-105); Aspartate Amino Transferase 122 U/L (0-32); Calcium 6.7 mg/dL (8.5-10.5); Carbon Dioxide 20 mmol/L (22-29); Chloride 90 mmol/L (98-107); Globulin 2.8 g/dL (1.3-4.6); Glucose 114 mg/dL (65-115); Osmolality Calculated 263 mOsm/kg (285-295); Sodium 126 mmol/L (136-145); Total Bilirubin 0.6 mg/dL (0.15-1.2); Total Protein 5.1 g/dL (6.6-8.7)
[2019-12-23 04:58] LABS: Anion Gap 20.7 (5-19); Blood Urea Nitrogen 82 mg/dL (8-23); Potassium 4.7 mmol/L (3.5-5.1)
[2019-12-23 05:36] LABS: Slide Review Slide Review Perform
[2019-12-23 05:57] LABS: Glucose Point of Care 121 mg/dL (70-110)
--- NOTE | 2019-12-23 06:00 | XR_ITS ---
WS: [id number] CHEST XRAY TECHNIQUE: Portable chest. CLINICAL INFORMATION: Hypoxia COMPARISON: December 22, 2019 FINDINGS: Endotracheal tube with tip above the hiwot. Enteric tube tip below the diaphragm. Heart: Cardiomegaly. Cardiac pacer. Lungs: Moderate chronic emphysematous changes. Small left pleural effusion with left basilar infiltra te and partial consolidation. Subsegmental atelectasis right midlung. Mild pulmonary vascular congest ion. Bones: Normal visualized bony structures. XR/XR chest 1V portable [id number] IMPRESSION: 1. Small left pleural effusion with patchy left lower lobe pulmonary infiltrat es consistent with pneumonia and partial consolidation. 2. Mild pulmonary vascular congestion. 3. Stable cardiomegaly.
[2019-12-23] MEDS: metroNIDAZOLE IV 500 MG/100 ML PREMIX 100 MG IV ×3 (06:15→22:05)
--- NOTE | 2019-12-23 06:50 | PC.NURSE ---
Pacemaker function Suspicion for pacemaker not functioning properly. Pt was fully paced at HR in 80's earlier in the shift. Now patient is only capturing at random beats with HR in the 60's. Underlying rhythm is a wide QRS with bundle branch block. Dr. Guzman notified by via [employer] system before going off shift. Report given to JAMIA Lamb and aware of changes.
[2019-12-23] MEDS: pantoprazole 40 mg SDV IVP ×2 (08:36→19:27)
[2019-12-23] MEDS: sennosides-docusate Tablet 1 TAB PO ×2 (08:37→17:52)
[2019-12-23] MEDS: lactulose oral liq 20 gm/30 mL UDC 10 GM PO ×2 (08:37→19:26)
--- NOTE | 2019-12-23 09:44 | P.PN_ITS ---
Subjective Subjective: Interval history: She does open her eyes slightly, appears to wake up to loud voice, but promptly falls back asleep, not awake enough to answer questions or follow commands. Sedation is going to be weaned more this morning. Vitals/I&O/Wt Last Vital Signs Temp 98.2 F 12/23/19 07:00 Pulse 79 12/23/19 09:15 Resp 14 12/23/19 09:23 BP 112/49 12/23/19 09:15 Pulse Ox 95 12/23/19 09:15 12/22/19 12/23/19 12/23/19 22:59 06:59 14:59 Intake Total 337.048 / 5780.366 7397.603 / 3330.598 189.175 / 189.175 Output Total 50 / 630 375 / 1005 0 / 0 Balance 287.048 / 2176.579 6313.603 / 2325.598 189.175 / 189.175 Weight last 48 hrs Weight 105.279 kg Weight 105.506 kg Weight 105.506 kg Physical Exam Const: COMMON NORMALS: no acute distress OTHER: Intubated. Partially opens eyes. Appears to respond to voice. Falls back asleep. HENMT: COMMON NORMALS: oropharynx normal Neck/C-Spine: COMMON NORMALS: no JVD Resp: COMMON NORMALS: normal respiratory effort and clear to auscultation bilaterally AUSCULTATION: clear to auscultation bilaterally Cardio: COMMON NORMALS: no JVD, regular rhythm, S1 normal heart sound present, S2 normal heart sound present and No murmurs present (Cardio) RHYTHM: regular rhythm HEART SOUNDS: S1 normal heart sound present and S2 normal heart sound present GI: COMMON NORMALS: Normal to inspection, nondistended, normoactive bowel sounds present, Soft to palpation and non-tender PALPATION: Yes Soft to palpation OTHER: Appears to be more distended. Extremity: COMMON NORMALS: no joint enlargement OTHER: 1+ leg edema Neuro: COMMON NORMALS: moves all extremities Skin: COMMON NORMALS: no rashes or lesions noted GENERAL SKIN EXAM: no rashes or lesions noted Urinary Catheter Management^: Boss: Cath Placed During This Visit: yes Reason for Continuing Indwelling Catheter: Accurate Measurement of Urinary Output in Critically Ill Patients Urinary Catheter Date of Insertion: 12/19/19 Urinary Catheter Time of Insertion: 14:00 Data : 12/23/19 04:15 12/23/19 04:15 Micro: Microbiology 12/22/19 08:50 Urine Culture - Preliminary Urine,Clean Catch 12/22/19 13:30 C.difficile Toxin B Gene (PCR) - Final Stool - Stool Aspirate 12/20/19 02:33 Gram Stain - Preliminary Sputum - Endotracheal Tube Aspirate Sputum Culture - Final 12/21/19 18:45 MRSA Culture - Final Nose 12/21/19 10:15 Blood Culture - Preliminary Blood NEGATIVE TO DATE 12/21/19 10:35 Blood Culture - Preliminary Blood NEGATIVE TO DATE A&P Assessment and plan (1) Hypotension: Very gradual improvement. Levophed is down to 6 mcg. Going to try to cut down peripheral today, reassess mental status, and see if we can decrease Levophed further. At this time continue stress dose steroids. Persistent patchy infiltrates. Gentle IVF. Status: Acute (2) Sepsis: With persistent septic shock. Blood pressure does appear to be gradually improving. Septic shock secondary to bilateral pneumonia. Abdomen is somewhat distended, appears to be tender on examination, noncontrast CT was obtained. Her belly is soft, although appears to be somewhat tender on examination. Lactic acid did improve since admission. Suspicion for focal bowel ischemia would be low per discussion with interactive video technician, she may have some global hypoperfusion. On CT air distended sigmoid colon no evidence of obstruction. She is producing stool which is liquid. C. difficile negative. No hydronephrosis. Feeds held for now. Appreciate surgical evaluation. Suspicion also of tickborne illness. Continue doxycycline empirically. Tick panel is pending. Lyme -ve so far. Today appears to have worsened thrombocytopenia, worsened liver function parameters. Mild hyponatremia. Peripheral smear with suspected infectious etiology of thrombocytopenia. No blasts. Few if any schistocytes. Abdominal distention, although abdomen soft. Discused w interactive video technician. Appreciate recommendations Status: Acute (3) Acute respiratory failure: CXR w bilateral perihilar and L lung base opacities. Oxygenation steady. For now continue cefepime, doxycycline, Flagyl. MRSA PCR negative. Vancomycin discontinued. Levaquin discontinued. Sputum culture pending. Urine bacterial antigens negative. Status: Acute (4) Pneumonia: Multilobar pneumonia. Recurrent fever resolved. Cefepime. Vancomycin stopped. Levaquin stopped. Flagyl was added previously for significant secretions. She was also placed on doxycycline 1 day following admission secondary to history of tick exposure Await blood and sputum cultures COVID retested, negative. With recurrent fever consider bacteremia, but blood cultures repeatedly negative so far. TTE difficult study, probably normal EF, pulm HTN. Pacemaker site without concerns outwardly. Assess by limited US. Status: Acute Qualifiers: Laterality: bilateral Lung location: lower lobe of lung Pneumonia type: due to unspecified organism Qualified Code(s): J18.9 - Pneumonia, unspecified organism (5) Acute kidney injury: Cr and BUN slightly worse today. By if urea appears to be prerenal. Blood pressures have been gradually improving. For now continues on low rate fluid infusion as was found fluid responsive yesterday. Metabolic acidosis slightly better today, patient up to 7.24, although also continues on bicarbonate infusion. Corrected calcium slightly low. Given 1 g calcium gluconate. Continue to support blood pressure. No hydronephrosis on renal ultrasound. Discussed with nephrology, appreciate recommendations on reassessment with regards to hemodialysis, in which case we will need access, if can tolerate hemodialysis here, versus CRRT for which would require transfer to outside facility. Agriculture Research Director will get back to me or surgeon with regards to need for access. CK with some elevation, has been gradually decreasing. At home appears was taking naproxen, lisinopril. Concern for also contrast- induced nephropathy with recent CTA. Status: Acute (6) Elevated troponin: Type II. No evidence of acute myocardial infarction Status: Acute (7) Thrombocytopenia: Stabilized. Low in 50s. Heparin products had been held. Pending tick panel. Continue doxy empirically. Peripheral smear without blasts, few if any schistocytes per discussion with pathologist. Leukocytosis. Thrombocytopenia is suggested perhaps secondary to acute infection, sepsis. Liver dysfunction. Pantoprazole, cefepime were started after thrombocytopenia was worsening, so not likely contributed. Status: Acute Additional A&P Information Metabolic acidosis. As above. Bicarbonate. Secondary to sepsis, renal failure. Continue to manage underlying causes. Transaminitis. Improving. Unremarkable hepatitis panel. Has not had any abdominal discomfort. Development of this is likely secondary to sepsis. H eterogenous liver. Suspect injury secondary to hypotension, sepsis, possibly tick-borne illness. History of tick bites. Doxycycline. Note that she has become leukopenic as well as thrombocytopenic which could be indicative of tickborne disease although sepsis from pneumonia is also possible. Acute hypoxic respiratory failure. Differential includes CHF, worsening pneumonia, PE. No large PE noted on CTA. TTE pending. Lasix on hold. Hold IVF. History of CHF awaiting echocardiogram. History of COPD. Continue nebs History of coronary artery disease. Asymptomatic. Hypertension. For now continue home medications Multiple other medical problems as listed in her past medical history Attestations Medical Necessity Statement*: Continue admission for cyst management of septic shock with multiple organ injury. Critical Care Time: In addition to noncritical issues 50 minutes critical care time spent on immediately life-threatening issues of septic shock, with hypotension, requirement of pressors, adjustment of pressor support, reassessment of hemodynamics, volume status, review of renal injury, other organ injury, renal function and consideration of need of renal replacement therapy, discussion with interactive video technician, cam milling machine operator, surgeon, nursing staff. Coding Level of Care Code Acute Under Cutter for [facility] Fwd Exam Comprehensive Diagnoses Hypotension I95.9 Sepsis A41.9 Acute respiratory failure J96.00 Pneumonia J18.9 Laterality: bilateral Lung location: lower lobe of lung Pneumonia type: due to unspecified organism Acute kidney injury N17.9 Elevated troponin R79.89 Thrombocytopenia D69.6
--- NOTE | 2019-12-23 09:44 | PM.CONSULT ---
Providers/Reason For Consult Consulting Physican/Specialty*: General Surgery Darius Chi MD Reason for Consult*: Abdominal distention. Attending Physician: Hector Guzman History of Present Illness History of Present Illness Kate Haskins is a 84 year old female recently admitted with pneumonia, sepsis, acute kidney injury with renal insufficiency. Her abdomen was noted to be somewhat distended and mildly tender. A CAT scan was performed yesterday which did not show any acute abnormalities but some air distention of the sigmoid colon. She is currently intubated in the ICU and I cannot obtain any history from her personally. Review of Systems General: Reports: ROS unobtainable due to endotracheal tube Meds/Allergies Home Medications and Allergies Home Medications Medication Instructions Recorded Confirmed Last Taken Type calcium carbonate-vitamin D3 1 tab PO DAILY 12/18/19 12/18/19 Unknown History [Calcium 500 + D] cetirizine [Zyrtec] 10 mg PO QPM 12/18/19 12/18/19 12/17/19 History diltiazem HCl 120 mg PO DAILY 12/18/19 12/18/19 Unknown History escitalopram oxalate See Rx Instructions .ROUTE .COMPLEX 12/18/19 12/18/19 Unknown History fluticasone propionate 2 spray INTRANASAL DAILY 12/18/19 12/18/19 Unknown History furosemide 40 mg PO BID 12/18/19 12/18/19 12/18/19 History gabapentin See Rx Instructions .ROUTE .COMPLEX 12/18/19 12/18/19 12/18/19 History hydrocodone-acetaminophen 1 tab PO Q6H PRN 12/18/19 12/18/19 12/17/19 History isosorbide mononitrate 120 mg PO QAM 12/18/19 12/18/19 12/18/19 History levocetirizine 5 mg PO QPM 12/18/19 12/18/19 12/17/19 History lisinopril 10 mg PO BID 12/18/19 12/18/19 12/18/19 History naproxen sodium [Aleve] 220 mg PO PRN 12/18/19 12/18/19 12/17/19 History omeprazole 20 mg PO DAILY 12/18/19 12/18/19 12/18/19 History Allergies Allergy/AdvReac Type Severity Reaction Status Date / Time ibuprofen [From Motrin] Allergy Unknown Verified 12/18/19 12:19 Penicillins Allergy Unknown Verified 12/18/19 12:19 Current Medications Current Medications Generic Name Dose Route Start Last Admin Trade Name Frenoemi PRN Reason Stop Dose Admin Acetaminophen 650 mg 12/18/19 14:42 12/21/19 14:05 Tylenol PO 650 mg Q6H PRN Administration Mild/Mod Pain Or Temp >/= 101 Albuterol/Ipratropium 3 ml 12/20/19 04:00 12/23/19 08:14 Duoneb INHALATION 3 ml Q4H.RESPIRATORY OPAL Administration Hydrocortisone Sodium Succinate 100 mg 12/21/19 10:30 12/22/19 22:30 Solu-Cortef Inj IVP 100 mg Q12H OPAL Administration Fentanyl 1,000 mcg/ Sodium 100 mls @ 0 mls/hr 12/19/19 20:30 12/23/19 00:54 Chloride IV 25 mcg/hr .Q0M OPAL 2.5 mls/hr Titration Protocol Per Protocol Phenylephrine HCl 25 mg/ 252.5 mls @ 0 mls/hr 12/19/19 21:00 12/20/19 17:04 Sodium Chloride IV Infused .Q0M OPAL Titration Protocol Per Protocol Metronidazole 500 mg in 100 mls @ 100 mls/hr 12/19/19 23:00 12/23/19 07:15 Flagyl Iv IV Infused Q8H OPAL Infusion Protocol Doxycycline Hyclate 100 mg/ 100 mls @ 100 mls/hr 12/19/19 23:00 12/22/19 23:48 Sodium Chloride IV Infused Q12H OPAL Infusion Protocol Propofol 1,000 mg in 100 mls @ 0 mls/hr 12/20/19 02:00 12/23/19 08:45 Diprivan IV 0 mcg/kg/min .Q0M OPAL 0 mls/hr Titration Protocol Per Protocol Sodium Chloride 1,000 mls @ 50 mls/hr 12/20/19 07:30 12/21/19 03:47 Sodium Chloride 0.9% IV 50 mls/hr .Q20H OPAL Administration Cefepime HCl 2,000 mg/ Sodium 50 mls @ 100 mls/hr 12/21/19 00:00 12/23/19 01:21 Chloride IV Infused Q24H OPAL Infusion Protocol Sodium Bicarbonate 150 meq/ 1,150 mls @ 80 mls/hr 12/22/19 05:00 12/23/19 04:17 Dextrose IV 80 mls/hr .[id number] OPAL Administration Norepinephrine Bitartrate 8 mg 508 mls @ 0 mls/hr 12/22/19 08:00 12/23/19 08:50 / Dextrose IV 3 mcg/min .Q0M OPAL 11.4 mls/hr Titration Protocol Per Protocol Lactulose 10 gm 12/22/19 20:15 12/23/19 08:37 Constulose PO 10 gm Q12H OPAL Administration Pantoprazole Sodium 40 mg 12/20/19 07:30 12/23/19 08:36 Protonix IVP 40 mg Q12H OPAL Administration Senna/Docusate Sodium 1 tab 12/22/19 18:00 12/23/19 08:37 Senna-S PO 1 tab BID OPAL Administration PFSH Acute PFSH: Medical History Atrial fibrillation CHF (congestive heart failure) COPD (chronic obstructive pulmonary disease) Chronically on 3 l Coronary artery disease Hyperlipidemia Peripheral neuropathy Restless leg syndrome Sick sinus syndrome Surgical History History of appendectomy History of bilateral knee arthroplasty Pacemaker Previous back surgery Family History Other CAD (coronary artery disease) Diabetes Social History Smoking and tobacco status: never smoked Alcohol intake: never Vitals/I&O/Wt Last Vital Signs Temp 98.2 F 12/23/19 07:00 Pulse 79 12/23/19 09:15 Resp 14 12/23/19 09:23 BP 112/49 12/23/19 09:15 Pulse Ox 95 12/23/19 09:15 12/22/19 12/23/19 12/23/19 22:59 06:59 14:59 Intake Total 337.048 / 3330.598 1468.603 / 3330.598 189.175 / 189.175 Output Total 50 / 1005 375 / 1005 0 / 0 Balance 287.048 / 2325.598 1093.603 / 2325.598 189.175 / 189.175 Weight last 48 hrs Weight 232 lb 1.6 oz Weight 232 lb 9.6 oz Weight 232 lb 9.6 oz Physical Exam Narrative: EXAM NARRATIVE: The patient was encountered in her room in the intensive care unit. She is intubated. She is somewhat sedated but is arousable in the sense that she will partially open her eyes to stimulation. The lungs seem clear anteriorly. The heart is regular. The abdomen is obese and somewhat protruded at but is softly distended. Bowel sounds are infrequent. The patient has some slight tenderness diffusely to repeated palpation. No obvious masses are palpated. The extremities reveal SCDs on the lower legs. A triple-lumen venous catheter is in a right femoral location. The patient does have a Boss catheter and a rectal tube in place. Urinary Catheter Management^: Boss: Cath Placed During This Visit: yes Reason for Continuing Indwelling Catheter: Accurate Measurement of Urinary Output in Critically Ill Patients Urinary Catheter Date of Insertion: 12/19/19 Urinary Catheter Time of Insertion: 14:00 Data Micro: Micro: Microbiology 12/22/19 08:50 Urine Culture - Pr eliminary Urine,Clean Catch 12/22/19 13:30 C.difficile Toxin B Gene (PCR) - Fin al Stool - Stool Asp irate 12/20/19 02:33 Gram Stain - Preli minary Sputum - Endotrac heal Tube Aspirate Sputum Culture - F inal 12/21/19 18:45 MRSA Culture - Fin al Nose 12/21/19 10:15 Blood Culture - Pr eliminary Blood NEGATIVE TO REJI E 12/21/19 10:35 Blood Culture - Pr eliminary Blood NEGATIVE TO REJI E Imaging^: CT Abd/Pel: Radiologist's impression: CT scan abdomen/pelvis 12/22/2019 iMPRESSION: 1. Small bilateral pleural effusions with compressive atelectasis in the lung bases right greater than left. Recommend correlation for pneumonia. 2. Enteric tube with tip in stomach. 3. Diffuse body wall anasarca with small amount of pelvic ascites. 4. Air distended sigmoid colon. No evidence of small or large bowel obstruction. 5. Boss catheter and rectal tube in place. 6. No hydronephrosis in either kidney. 7. Mild hepatomegaly. Liver otherwise unremarkable. A&P Assessment and plan (1) Abdominal distention: CT reviewed. There is no evidence of an obstruction. The patient has an air dilated distal descending/sigmoid colon. The majority of her distention appears to be her body habitus. Clinically, she appears to have an ileus which is not unexpected given her sepsis, pneumonia, etc. Continue conservative measures. Status: Acute (2) Septic shock: Status: Acute (3) Pneumonia: Status: Acute Coding Level of Care Code Acute [facility] Sharpshooter for [facility] Fwd Diagnoses Abdominal distention R14.0 Septic shock A41.9; R65.21 Pneumonia J18.9
[2019-12-23] MEDS: hydrocortisone 100 mg/2 mL SDV IVP ×2 (10:00→22:00)
[2019-12-23] MEDS: doxycycline 100 MG in sodium chloride 0.9% (plus) 100 ML IV ×2 (10:00→22:06)
--- NOTE | 2019-12-23 11:05 | PC.SOCIAL ---
IMM Updated Page 2 of IMM updated and given to patient. Initialed, dated, and timed and placed back in chart.
--- NOTE | 2019-12-23 11:32 | US_ITS ---
WS: [id number] INDICATION: Ultrasound soft tissue TECHNIQUE: Ultrasound soft tissue area of concern pacemaker pocket FINDINGS: Ultrasound soft tissue area of concern left upper chest. Small ovoid collection of fluid ju st inferior to the insertion site. No evidence of drainable abscess. No other abnormalities. US/US soft tissue/extremity 17514 IMPRESSION: Small ovoid collection of fluid at the inferior aspect of the inser tion site measuring 1.0 x 0.7 x 0.7 CM. No drainable abscess.
[2019-12-23 12:07] LABS: Glucose Point of Care 149 mg/dL (70-110)
--- NOTE | 2019-12-23 14:32 | PM.PN ---
Subjective Subjective: Interval history: pressor requirements have decreased. remains intubated, tapering sedation Medications: Reviewed: Yes Vitals/I&O/Wt Last Vital Signs Temp 98.8 F 12/23/19 12:00 Pulse 73 12/23/19 14:00 Resp 15 12/23/19 14:00 BP 97/45 12/23/19 14:00 Pulse Ox 93 12/23/19 14:00 urine output 75 ml 12/22/19 12/23/19 12/23/19 22:59 06:59 14:59 Intake Total 337.048 / 7733.744 5794.603 / 3330.598 262.412 / 262.412 Output Total 50 / 630 375 / 1005 0 / 0 Balance 287.048 / 2538.110 6119.603 / 2325.598 262.412 / 262.412 Weight last 48 hrs Weight 105.279 kg Weight 105.506 kg Weight 105.506 kg Physical Exam Urinary Catheter Management^: Boss: Cath Placed During This Visit: yes Reason for Continuing Indwelling Catheter: Accurate Measurement of Urinary Output in Critically Ill Patients Urinary Catheter Date of Insertion: 12/19/19 Urinary Catheter Time of Insertion: 14:00 Data : 12/23/19 04:15 12/23/19 04:15 Other Labs: 7.24/47/75 AC14, 45% +10 peep alumin 2.3, calcium corrected 7.9 Micro: Microbiology 12/18/19 12:06 Blood Culture - Final Blood NO GROWTH AFTER 5 DAYS 12/18/19 12:02 Blood Culture - Final Blood NO GROWTH AFTER 5 DAYS 12/22/19 08:50 Urine Culture - Preliminary Urine,Clean Catch 12/22/19 13:30 C.difficile Toxin B Gene (PCR) - Final Stool - Stool Aspirate 12/20/19 02:33 Gram Stain - Preliminary Sputum - Endotracheal Tube Aspirate Sputum Culture - Final 12/21/19 18:45 MRSA Culture - Final Nose 12/21/19 10:15 Blood Culture - Preliminary Blood NEGATIVE TO DATE 12/21/19 10:35 Blood Culture - Preliminary Blood NEGATIVE TO DATE Other data: CXR 1. Small left pleural effusion with patchy left lower lobe pulmonary infiltrates consistent with pneumonia and partial consolidation. 2. Mild pulmonary vascular congestion. 3. Stable cardiomegaly. A&P Additional A&P Information Impression: 1. Acute kidney injury, oligoanuric, due to sepsis, contrast, mild rhabdomyolysis. Was on ACEi and possibly NSAID prior to admission 2. Combination metabolic and respiratory acidosis, on bicarbonate gtt, improved 3. Hypervolemic hyponatremia Recommendation: She does not have emergent need for dialysis, but is volume overloaded, on bicarbonate gtt, little urine output. Hemodialysis can be attempted if family desires continued aggressive care. Can try longer duration, low blood flow and low fluid removal on conventional HD machine daily. Continue sodium bicarb infusion. Prognosis poor. 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
[2019-12-23 17:37] LABS: E. Chaffeensis AB IGG <1:64; E. Chaffeensis AB IGM <1:20
[2019-12-23 18:57] LABS: Glucose Point of Care 153 mg/dL (70-110)
--- NOTE | 2019-12-23 21:16 | P.PN_ITS ---
Subjective Subjective: Interval history: still requires pressors but at reduced doses. abdomen still looks distended but soft and has bowel movements. worsening renal functions and will need HD/CRRT Medications: Reviewed: Yes Vitals/I&O/Wt Last Vital Signs Temp 98.8 F 12/23/19 12:00 Pulse 64 12/23/19 20:40 Resp 16 12/23/19 20:40 BP 94/42 12/23/19 18:45 Pulse Ox 93 12/23/19 20:40 12/23/19 12/23/19 12/23/19 06:59 14:59 22:59 Intake Total 1468.603 / 3330.598 262.412 / 025.266 2770.333 / 1761.745 Output Total 375 / 1005 0 / 0 40 / 40 Balance 1093.603 / 2325.598 262.412 / 023.704 5123.333 / 1721.745 Weight last 48 hrs Weight 232 lb 1.6 oz Weight 232 lb 9.6 oz Weight 232 lb 9.6 oz Physical Exam Narrative: EXAM NARRATIVE: PHYSICAL EXAM: General: lying in bed, sedated and intubated. HEENT:NCAT, PERRLA, EOMI Neck: Supple Lungs: Clear, Heart: s1/s2, RRR Abd: soft, distended, BS +VE Extremities: No edema BOILER ENGINEER: sedated and limited BOILER ENGINEER exam possible. opens eyes SKIN: no rash Urinary Catheter Management^: Boss: Cath Placed During This Visit: yes Reason for Continuing Indwelling Catheter: Accurate Measurement of Urinary Output in Critically Ill Patients Urinary Catheter Date of Insertion: 12/19/19 Urinary Catheter Time of Insertion: 14:00 Data : 12/23/19 04:15 12/23/19 04:15 Micro: Microbiology 12/18/19 12:06 Blood Culture - Final Blood NO GROWTH AFTER 5 DAYS 12/18/19 12:02 Blood Culture - Final Blood NO GROWTH AFTER 5 DAYS 12/22/19 08:50 Urine Culture - Preliminary Urine,Clean Catch 12/22/19 13:30 C.difficile Toxin B Gene (PCR) - Final Stool - Stool Aspirate A&P Assessment and plan (1) Thrombocytopenia: Status: Acute (2) Coronary artery disease: Status: Acute Qualifiers: Associated angina: with unspecified angina Coronary Disease-Associated Artery/Lesion type: unspecified vessel or lesion type [place] vs. transplanted heart: unspecified whether [place] or transplanted heart Qualified Code(s): I25.119 - Atherosclerotic heart disease of [place] coronary artery with unspecif ied angina pectoris (3) Acute kidney injury: Status: Acute (4) Pneumonia: Status: Acute Qualifiers: Pneumonia type: due to unspecified organism Laterality: bilateral Lung location: lower lobe of lung Qualified Code(s): J18.9 - Pneumonia, unspecified organism (5) Septic shock: Status: Acute Overall: 84-year-old female admitted to ICU for acute respiratory failure and hemodynamic instability likely in septic shock with multiorgan failure. NEURO: Sedated with fentanyl Opening eyes and at times following commands PULM: #Acute respiratory failure likely secondary to pneumonia #Questionable history of COPD On mechanical ventilation VC mode 450 TV/respiratory rate 14/FiO2 40%/PEEP 6 ABG today morning on 45% FiO2: 7.24/47/75/20 ABG reflective of respiratory acidosis with normal anion gap acidosis Continue cefepime, Doxy: Continue DuoNeb nebulizations every 4 hours CVS: #Shock likely due to sepsis Currently on vasopressors - decreasing requirements of levophed Try to keep map above 65 titrate Levophed accordingly Lactic acid improving-2.6 Echo 12/22/2019: Technically difficult study but grossly LV appear normal, diastolic dysfunction noted and moderate pulmonary hypertension with small pericardial effusion #Recent pacemaker placement Pacemaker insertion site no signs of infection noted GI: #Elevated LFTs likely due to hypotension - improving #Abdominal distention likely due to ileus secondary to pressors, opiates - can start on TF at low rate - CT abdomen: A distended sigmoid colon but otherwise no small or large bowel obstruction. normal gallbladder -Add gentle bowel regimen-senna docusate at night/lactulose 15 twice daily - Monitor rectal tube output - Avoid hepatotoxic medications and monitor LFTs and CK RENAL: #ANAHY over? CKD secondary to septic shock/rhabdomyolysis/contrast induced- prerenal progressing to ATN #Normal anion gap metabolic acidosis likely due to RTA -Worsening renal parameters -I/O/N: 1.2 L / 400 cc/+840 over last 24 hours; significantly reduced urine output -Monitor electrolytes and supplement accordingly -Bicarb drip to correct acidosis: Monitor calcium for hypocalcemia while on bicarb drip -IV fluids @ 80 cc to correct CK; DC fluid if patient develops signs of fluid overload -Urine electrolytes, renal ultrasound -Reduced urine output and fluid overload - might require renal replacement therapy - renal follow up HEM: #Leukocytosis likely secondary to sepsis due to pneumonia/steroids COVID antigen and PCR both negative awaiting for final culture results and tick panel Meanwhile covering with cefepime, doxy, Flagyl #Thrombocytopenia-no signs of bleeding Monitor platelets DVT prophylaxis Heparin for DVT prophylaxis is held due to thrombocytopenia-currently on SCDs ENDO: Monitor sugars and place on scale coverage to target sugars below 200 ID: #Septic shock likely secondary to pneumonia Reducing requirements of Levophed currently on 7 MCG from 14 Awaiting final cultures and tick panel Meanwhile covering with cefepime, doxy, Flagyl DC Levaquin as Doxy will cover atypicals; and DC Vanco as MRSA nares negative Monitor WBC and fevers Case discussed with RN, and Dr. Guzman hospitalist Overall impression: patient is still critically ill, requiring mechanical ventilation, pressor support to maintain blood pressure although positive sign is reducing requirements of pressors. At this point worsening renal functions although metabolic acidosis responded to bicarb infusion but it is still concerning in view of ongoing septic shock even though covered with broad- spectrum antibiotics while final cultures are pending. Patient needs renal replacement therapy in some form. Attestations Medical Necessity Statement*: septic shock and acute respiratory failure secondary to multilobar pneumonia Time Spent in Patient Care: Greater than 35 minutes (>than 50% of time spent in counselling and/or direct pt care on unit) . 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 transplanted heart: unspecified whether [place] or transplanted heart Acute kidney injury N17.9 Pneumonia J18.9 Pneumonia type: due to unspecified organism Laterality: bilateral Lung location: lower lobe of lung Septic shock A41.9; R65.21 Time Spent (min) 45
[2019-12-24] VITALS (75 sets, daily range): BP systolic 92–140; BP diastolic 34–71; PULSE 64–90; RESP 0–20; TEMP 36.5–36.9; O2SAT 88–100
--- NOTE | 2019-12-24 | SCC_ITS ---
Procedure Done: Temporary hemodialysis catheter placement into the right internal jugular vein with intraoperative ultrasound and fluoroscopy interpretation. 2.8 seconds of fluoroscopic guidance, for a cumulative dose of 0.46 mGy, was provided to Dr. Chi by the radiology department. C-arm images of the chest were saved for the patient's permanent record. JOCELIN
[2019-12-24 01:34] LABS: Glucose Point of Care 166 mg/dL (70-110)
[2019-12-24] MEDS: ipratropium-albuterol 3 mL Neb INHALATION ×7 (03:53→23:23)
[2019-12-24 05:34] LABS: ABG PCO2 40.8 mmHg (35-45); ABG PH Result 7.35 (7.35-7.45); Arterial Blood Gas Hematocrit 30.1 % (37-47); Base Excess ABG -3.1 mmol/L (-2.0-2.0); Blood Gas Sample Site Brachial, right; Blood Gas Sample Type Arterial; Blood Gas Tidal Volume 0.48; HCO3 ABG 22.3 mmol/L (22-26); Oxygen Device VENT
[2019-12-24 05:41] LABS: Basophils # 0.1 10^3/uL (0.0-0.1); Basophils % 0.3 %; Eosinophils % 0.1 %; Hematocrit 29.1 % (37.0-47.0); Hemoglobin 9.2 g/dL (11.5-15.3); Lymphocytes # 0.8 10^3/uL (0.8-4.8); Lymphocytes % 4.7 %; Mean Corpuscular HGB Conc 31.6 g/dL (30.0-36.0); Mean Corpuscular Hemoglobin 27.1 pg (28.0-34.0); Mean Corpuscular Volume 85.6 fL (81-99); Monocytes # 0.8 10^3/uL (0.2-0.9); Monocytes % 4.4 %; Neutrophils # 15.92 10^3/uL (1.8-7.7); Neutrophils % 89.3 %; Nucleated Red Blood Cells % 0.1 %; Platelet Count 41 10^3/cmm (130-400); Red Cell Distribution Width 17.4 % (12.1-15.1); White Blood Count 17.8 10^3/uL (4.0-10.0)
[2019-12-24 05:53] LABS: Slide Review Slide Review Perform
[2019-12-24 06:08] LABS: Alanine Aminotransferase 83 U/L (0-33); Albumin Level 2.4 g/dL (3.5-5.2); Alkaline Phosphatase 71 IU/L (35-105); Anion Gap 24.7 (5-19); Aspartate Amino Transferase 79 U/L (0-32); Calcium 6.5 mg/dL (8.5-10.5); Carbon Dioxide 22 mmol/L (22-29); Chloride 85 mmol/L (98-107); Globulin 2.7 g/dL (1.3-4.6); Glucose 177 mg/dL (65-115); Osmolality Calculated 270 mOsm/kg (285-295); Potassium 4.7 mmol/L (3.5-5.1); Sodium 127 mmol/L (136-145); Total Bilirubin 0.5 mg/dL (0.15-1.2); Total Protein 5.1 g/dL (6.6-8.7)
[2019-12-24 06:15] LABS: Blood Urea Nitrogen 104 mg/dL (8-23)
[2019-12-24] MEDS: metroNIDAZOLE IV 500 MG/100 ML PREMIX 100 MG IV ×3 (06:28→23:22)
[2019-12-24] MEDS: norepinephrine 8 MG in dextrose 5 % 500 ML 7.6 MG IV (07:05)
[2019-12-24] MEDS: lactulose oral liq 20 gm/30 mL UDC 10 GM PO ×2 (07:58→20:58)
[2019-12-24] MEDS: pantoprazole 40 mg SDV IVP ×2 (07:58→20:58)
[2019-12-24] MEDS: sodium bicarbonate 150 MEQ in dextrose 5% 1,000 ML 80 MEQ IV (08:18)
--- NOTE | 2019-12-24 08:29 | P.PN_ITS ---
Subjective Subjective: Interval history: She is a little bit more awake. Opens her eyes. Weak and difficult to say how much she is able to pay attention to as she closes her eyes pretty quickly and appears to fall asleep. When asked in loud voice whether was in pain did appear to weakly nod no. When asked to squeeze her hand, could feel weak squeezes. But after that did not answer any further questions or follow commands. Vitals/I&O/Wt Last Vital Signs Temp 98.0 F 12/24/19 04:00 Pulse 75 12/24/19 08:15 Resp 14 12/24/19 08:02 BP 110/54 12/24/19 08:15 Pulse Ox 95 12/24/19 08:15 12/23/19 12/24/19 12/24/19 22:59 06:59 14:59 Intake Total 1549.833 / 1812.245 336.105 / 2148.350 1143.417 / 1143.417 Output Total 40 / 40 870 / 910 Balance 1509.833 / 1772.245 -533.895 / 4482.052 3250.417 / 1143.417 Weight last 48 hrs Weight 109.134 kg Weight 105.279 kg Physical Exam Const: COMMON NORMALS: no acute distress OTHER: Intubated. Partially opens eyes. Appears to respond to voice. Falls back asleep. Appears comfortable. HENMT: COMMON NORMALS: oropharynx normal Neck/C-Spine: COMMON NORMALS: no JVD Resp: COMMON NORMALS: normal respiratory effort and clear to auscultation bilaterally AUSCULTATION: clear to auscultation bilaterally Cardio: COMMON NORMALS: no JVD, regular rhythm, S1 normal heart sound present, S2 normal heart sound present and No murmurs present (Cardio) RHYTHM: regular rhythm HEART SOUNDS: S1 normal heart sound present and S2 normal heart sound present GI: COMMON NORMALS: Normal to inspection, nondistended, normoactive bowel sounds present, Soft to palpation and non-tender PALPATION: Yes Soft to palpation OTHER: Appears to be more distended. Extremity: COMMON NORMALS: no joint enlargement OTHER: 1+ leg edema. 3+ UE edema bilatearlly Neuro: COMMON NORMALS: moves all extremities Skin: COMMON NORMALS: no rashes or lesions noted GENERAL SKIN EXAM: no rashes or lesions noted Urinary Catheter Management^: Boss: Cath Placed During This Visit: yes Reason for Continuing Indwelling Catheter: Accurate Measurement of Urinary Output in Critically Ill Patients Urinary Catheter Date of Insertion: 12/19/19 Urinary Catheter Time of Insertion: 14:00 Data : 12/24/19 04:30 12/24/19 04:30 Micro: Microbiology 12/18/19 12:06 Blood Culture - Final Blood NO GROWTH AFTER 5 DAYS 12/18/19 12:02 Blood Culture - Final Blood NO GROWTH AFTER 5 DAYS 12/22/19 08:50 Urine Culture - Preliminary Urine,Clean Catch A&P Assessment and plan (1) Hypotension: Very gradual improvement. Levophed is off this morning. At this time continue stress dose steroids. Status: Acute (2) Sepsis: With persistent septic shock. pH has improved, but still on continuous bicarb infusion, still not producing much urine, with worsening renal function. Blood pressure does appear to be gradually improving. Septic shock secondary to bilateral pneumonia. FiO2 is little bit worse at 50, although PEEP remains stable at 8. Saturating in the mid 90s. Abdomen is somewhat distended, appears to be tender on examination, noncontrast CT was obtained. Her belly is soft, no indication of pain today on palpation. Lactic acid did improve since admission. Suspicion for focal bowel ischemia would be low per page designer, she may have some global hypoperfusion. On CT air distended sigmoid colon no evidence of obstruction. She is producing some stool which is liquid. C. difficile negative. No hydronephrosis. Feeds held for now. Appreciate surgical evaluation. Suspicion also of tickborne illness. Continue doxycycline empirically. Tick panel is pending. Lyme -ve so far. Today appears to have worsened thrombocytopenia, worsened liver function parameters. Mild hyponatremia. Peripheral smear with suspected infectious etiology of thrombocytopenia. No blasts. Few if any schistocytes. Abdominal distention, although abdomen soft. Discused w page designer. Appreciate recommendations Status: Acute (3) Acute respiratory failure: CXR w bilateral perihilar and L lung base opacities. Oxygenation steady. For now continue cefepime, doxycycline, Flagyl. MRSA PCR negative. Vancomycin discontinued. Levaquin discontinued. Sputum culture pending. Urine bacterial antigens negative. Status: Acute (4) Pneumonia: Multilobar pneumonia. Recurrent fever resolved. Cefepime. Vancomycin stopped. Levaquin stopped. Flagyl was added previously for significant secretions. She was also placed on doxycycline 1 day following admission secondary to history of tick exposure Await blood and sputum cultures COVID retested, negative. With recurrent fever consider bacteremia, but blood cultures repeatedly negative so far. TTE difficult study, probably normal EF, pulm HTN. Pacemaker site without concerns outwardly. Assess by limited US. Status: Acute Qualifiers: Laterality: bilateral Lung location: lower lobe of lung Pneumonia type: due to unspecified organism Qualified Code(s): J18.9 - Pneumonia, unspecified organism (5) Acute kidney injury: Cr and BUN slightly worse. pH is better, but with bicarb. Low urine output. Last night discussed different options for dialysis, including hemodialysis here versus transfer for CRRT with her daughter. She wanted to take some time to think about things. Late at night I was notified that if transfer were necessary they would be agreeable to go to [facility]. Discussed with daughter again this morning with regards to improvement in blood pressure, weaning of pressors, and after discussion with potato loader that she should be able to tolerate trial of hemodialysis, to which daughter is agreeable to initiate here at this time. Surgeon will place access catheter. Now likely ATN. By Feurea appeared to be prerenal initially. Blood pressures have been gradually improving. Metabolic acidosis slightly better today, patient up to 7.24, although also continues on bicarbonate infusion. Corrected calcium slightly low. Given 1 g calcium gluconate. Continue to support blood pressure. No hydronephrosis on renal ultrasound. Discussed with nephrology, appreciate recommendations on reassessment with regards to hemodialysis, in which case we will need access, if can tolerate hemodialysis here, versus CRRT for which would require transfer to outside facility. Title I Instructional Assistant will get back to me or surgeon with regards to need for access. CK with some elevation, has been gradually decreasing. At home appears was taking naproxen, lisinopril. Concern for also contrast- induced nephropathy with recent CTA. Status: Acute (6) Elevated troponin: Type II. No evidence of acute myocardial infarction Status: Acute (7) Thrombocytopenia: Stabilized. Low in 50s. Heparin products had been held. Pending tick panel. Continue doxy empirically. Peripheral smear without blasts, few if any schistocytes per discussion with pathologist. Leukocytosis. Thrombocytopenia is suggested perhaps secondary to acute infection, sepsis. Liver dysfunction. Pantoprazole, cefepime were started after thrombocytopenia was worsening, so not likely contributed. Status: Acute Additional A&P Information Metabolic acidosis. As above. Bicarbonate. Secondary to sepsis, renal failure. Continue to manage underlying causes. Transaminitis. Improving. Unremarkable hepatitis panel. Has not had any abdominal discomfort. Development of this is likely secondary to sepsis. Hete rogenous liver. Suspect injury secondary to hypotension, sepsis, possibly tick- borne illness. History of tick bites. Doxycycline. Note that she has become leukopenic as well as thrombocytopenic which could be indicative of tickborne disease although sepsis from pneumonia is also possible. Acute hypoxic respiratory failure. Differential includes CHF, worsening pneumonia, PE. No large PE noted on CTA. TTE pending. Lasix on hold. Hold IVF. History of CHF awaiting echocardiogram. History of COPD. Continue nebs History of coronary artery disease. Asymptomatic. Hypertension. For now continue home medications Multiple other medical problems as listed in her past medical history Attestations Medical Necessity Statement*: Continue admission for treatment of sepsis, septic shock acute kidney injury requiring hemodialysis, weaning of hemodynamic and ventilatory support. Coding Level of Care Code Acute Technician Biological Health for [facility] Fwd Exam Comprehensive Diagnoses Hypotension I95.9 Sepsis A41.9 Acute respiratory failure J96.00 Pneumonia J18.9 Laterality: bilateral Lung location: lower lobe of lung Pneumonia type: due to unspecified organism Acute kidney injury N17.9 Elevated troponin R79.89 Thrombocytopenia D69.6
--- NOTE | 2019-12-24 10:02 | PC.NURSE ---
Next of Kin Magalie Fallon contacted via Telephone and approved HD catheter and Telehealth
[2019-12-24] MEDS: doxycycline 100 MG in sodium chloride 0.9% (plus) 100 ML IV ×2 (10:11→22:17)
[2019-12-24] MEDS: hydrocortisone 100 mg/2 mL SDV IVP ×2 (10:17→22:17)
--- NOTE | 2019-12-24 10:18 | P.PN_ITS ---
Subjective Subjective: Interval history: off pressors, remains intubated Medications: Reviewed: Yes Vitals/I&O/Wt Last Vital Signs Temp 98.0 F 12/24/19 04:00 Pulse 75 12/24/19 08:15 Resp 17 12/24/19 10:00 BP 110/54 12/24/19 08:15 Pulse Ox 95 12/24/19 08:15 12/23/19 12/24/19 12/24/19 22:59 06:59 14:59 Intake Total 1549.833 / 1812.245 336.105 / 2148.350 1143.417 / 1143.417 Output Total 40 / 40 870 / 910 Balance 1509.833 / 1772.245 -533.895 / 3194.252 2936.417 / 1143.417 Weight last 48 hrs Weight 109.134 kg Weight 105.279 kg Physical Exam Extremity: GENERAL: Yes edema Urinary Catheter Management^: Boss: Cath Placed During This Visit: yes Reason for Continuing Indwelling Catheter: Accurate Measurement of Urinary Output in Critically Ill Patients Urinary Catheter Date of Insertion: 12/19/19 Urinary Catheter Time of Insertion: 14:00 Data : 12/24/19 04:30 12/24/19 04:30 Other Labs: BUN 104, Cr 5.1, serum sodium 127 albumin 2.4, alysia Ca 7.7 7.35/41/70 AC 14/50% +8 peep Micro: Microbiology 12/22/19 08:50 Urine Culture - Final Urine,Clean Catch 12/18/19 12:06 Blood Culture - Final Blood NO GROWTH AFTER 5 DAYS 12/18/19 12:02 Blood Culture - Final Blood NO GROWTH AFTER 5 DAYS A&P Additional A&P Information Impression: 1. Acute kidney injury, essentially anuric, due to sepsis, contrast, mild rhabdomyolysis. BUN, creatinine continue to rise. Was on ACEi and possibly NSAID prior to admission 2. Combination metabolic and respiratory acidosis, on bicarbonate gtt, improved 3. Hypervolemic hyponatremia Recommendation: She does not have emergent need for dialysis, but is volume overloaded, on bicarbonate gtt, essentially no output. Family has agreed to dialysis trial. Plan for OR for dialysis catheter placement. Short HD after, then again tomorrow. Attestations Medical Necessity Statement*: critically ill Time Spent in Patient Care: Greater than 35 minutes Coding Level of Care Code Acute Concrete Engineering Technician for [facility]
[2019-12-24] MEDS: sennosides-docusate Tablet 1 TAB PO ×2 (10:25→17:35)
--- NOTE | 2019-12-24 10:44 | PM.PN ---
Subjective Subjective: Interval history: I have been asked to place a temporary dialysis catheter in light of the patient's acute kidney injury/renal insufficiency. The sales representative sales manager would like it placed somewhere other than in a femoral location. The patient remains thrombocytopenic. Vitals/I&O/Wt Last Vital Signs Temp 98.0 F 12/24/19 04:00 Pulse 75 12/24/19 08:15 Resp 17 12/24/19 10:00 BP 110/54 12/24/19 08:15 Pulse Ox 95 12/24/19 08:15 12/23/19 12/24/19 12/24/19 22:59 06:59 14:59 Intake Total 1549.833 / 2148.350 336.105 / 2148.350 1143.417 / 1143.417 Output Total 40 / 910 870 / 910 Balance 1509.833 / 1238.350 -533.895 / 6712.869 9288.417 / 1143.417 Weight last 48 hrs Weight 240 lb 9.6 oz Weight 232 lb 1.6 oz Physical Exam Narrative: EXAM NARRATIVE: Abdomen remains soft. Urinary Catheter Management^: Boss: Cath Placed During This Visit: yes Reason for Continuing Indwelling Catheter: Accurate Measurement of Urinary Output in Critically Ill Patients Urinary Catheter Date of Insertion: 12/19/19 Urinary Catheter Time of Insertion: 14:00 Data : 12/24/19 04:30 12/24/19 04:30 Micro: Microbiology 12/22/19 08:50 Urine Culture - Final Urine,Clean Catch 12/18/19 12:06 Blood Culture - Final Blood NO GROWTH AFTER 5 DAYS 12/18/19 12:02 Blood Culture - Final Blood NO GROWTH AFTER 5 DAYS A&P Assessment and plan (1) Abdominal distention: Abdomen remains soft. Status: Acute (2) Acute kidney injury: The patient is thrombocytopenic. Since nephrology would prefer to have the catheter somewhere other than in the femoral location, I will plan to take the patient to the operating room for an internal jugular vein catheter placement under ultrasound guidance. A platelet transfusion could be considered, but I think the risk is going to be very low with the above plan. Status: Acute Attestations Medical Necessity Statement*: See admitting service's notation. Coding Level of Care Code Acute Spice Room Worker for [facility] Angelica Diagnoses Abdominal distention R14.0 Acute kidney injury N17.9
[2019-12-24 13:24] LABS: Glucose Point of Care 167 mg/dL (70-110)
[2019-12-24] MEDS: clindamycin 900 MG/50 ML PREMIX 100 MG IV (13:36)
--- NOTE | 2019-12-24 14:12 | ANES.PREANE2 ---
Pre-Anesthetic Assessment Pre-Anesthetic Assessment: Height/Weight: Height 1.63 m Weight 109.134 kg Temp Pulse Resp BP Pulse Ox 98.4 F 81 16 125/55 91 12/24/19 12:45 12/24/19 13:45 12/24/19 13:58 12/24/19 13:45 12/24/19 13:45 Preop Diagnosis: acute kidney injury Proposed Procedure: Operation Date: 12/24/19 13:10 Proposed Procedures p temporary Dialysis Catheter Insertion(Not Applicable) - Darius Chi MD Was Beta Cristina taken within 24 hours: N/A Exam: Additional Exam Findings (including area of procedure): Intubated unable to question patient Airway: Additional comments: Patient intubated Pulmonary: Pulmonary: COPD Comments: pneumonia with respiratory failure CV/HEM: CV/HEM: Afib, CAD and CHF Comments: thrombocytopenia elevated troponin hypotension with pressors : Comments: acute kidney failure Hepatic: Hepatic: None reported Metabolic: Metabolic: Morbid obesity Anesthetic Plan: ASA status: 4E Anesthesia: General Risk of > 500 ml blood loss (7ml/kg in children): No Meds/Allergies Current Medications: Current Medications Generic Name Dose Route Start Last Admin Trade Name Freq PRN Reason Stop Dose Admin Acetaminophen 650 mg 12/18/19 14:42 12/21/19 14:05 Tylenol PO 650 mg Q6H PRN Administration Mild/Mod Pain Or Temp >/= 101 Albuterol/Ipratrop ium 3 ml 12/20/19 04:00 12/24/19 11:19 Duoneb INHALATION 3 ml Q4H.RESPIRATORY S CH Administration Hydrocortisone Sod ium Succinate 100 mg 12/21/19 10:30 12/24/19 10:17 Solu-Cortef Inj IVP 100 mg Q12H OPAL Administration Phenylephrine HCl 25 mg/ 252.5 mls @ 0 mls /hr 12/19/19 21:00 12/20/19 17:04 Sodium Chloride IV Infused .Q0M OPAL Titration Protocol Per Protocol Metronidazole 500 mg in 100 mls @ 100 mls/hr 12/19/19 23:00 12/24/19 06:28 Flagyl Iv IV 100 mls/hr Q8H OPAL Administration Protocol Doxycycline Hyclat e 100 mg/ 100 mls @ 100 mls /hr 12/19/19 23:00 12/24/19 10:11 Sodium Chloride IV 100 mls/hr Q12H OPAL Administration Protocol Propofol 1,000 mg in 100 m ls @ 0 mls/hr 12/20/19 02:00 12/23/19 21:06 Diprivan IV 5 mcg/kg/min .Q0M OPAL 2.9 mls/hr Titration Protocol Per Protocol Sodium Chloride 1,000 mls @ 50 ml s/hr 12/20/19 07:30 12/21/19 03:47 Sodium Chloride 0.9% IV 50 mls/hr .Q20H OPAL Administration Sodium Bicarbonate 150 meq/ 1,150 mls @ 80 ml s/hr 12/22/19 05:00 12/24/19 08:18 Dextrose IV 80 mls/hr .[id number] OPAL Administration Norepinephrine Bit artrate 8 mg 508 mls @ 0 mls/h r 12/22/19 08:00 12/24/19 07:05 / Dextrose IV 2 mcg/min .Q0M OPAL 7.6 mls/hr Administration Protocol Per Protocol Fentanyl 1,000 mcg / Sodium 100 mls @ 0 mls/h r 12/23/19 22:30 12/24/19 08:20 Chloride IV 25 mcg/hr .Q0M OPAL 2.5 mls/hr Titration Protocol Per Protocol Lactulose 10 gm 12/22/19 20:15 12/24/19 07:58 Constulose PO 10 gm Q12H OPAL Administration Pantoprazole Sodiu m 40 mg 12/20/19 07:30 12/24/19 07:58 Protonix IVP 40 mg Q12H OPAL Administration Senna/Docusate Sod ium 1 tab 12/22/19 18:00 12/24/19 10:25 Senna-S PO 1 tab BID OPAL Administration PFSH Anesthesia PFSH: Medical History Atrial fibrillation CHF (congestive heart failure) COPD (chronic obstructive pulmonary disease) Chronically on 3 l Coronary artery disease Hyperlipidemia Peripheral neuropathy Restless leg syndrome Sick sinus syndrome Surgical History History of appendectomy History of bilateral knee arthroplasty Pacemaker Previous back surgery Family History Other CAD (coronary artery disease) Diabetes Social History Smoking and tobacco status: never smoked Alcohol intake: never Data Anesthesia CBC & Chem 7: 12/24/19 04:30 12/24/19 04:30 Other Labs: Laboratory Results - last 48 hr 12/18/19 12/22/19 12/22/19 12:02 17:44 17:51 WBC RBC Hgb Hct MCV MCH MCHC RDW Plt Count MPV Neut % (Auto) Lymph % (Auto) Andrews % (Auto) Eos % (Auto) Baso % (Auto) Neut # (Auto) Lymph # (Auto) Andrews # (Auto) Eos # (Auto) Baso # (Auto) Nucleated RBC % (auto) Nucleated RBCs # Specimen Type Arterial Sample Site Brachial, right ABG pH 7.21 L ABG pCO2 47.8 H ABG pO2 78.6 L ABG HCO3 19.3 L ABG Base Excess -8.3 L Luis Enrique Test N/a Hematocrit 33.2 L O2 Delivery Device Vent Mechanical Rate FiO2 45.0 Tidal Volume 0.45 PEEP 10.0 Milking Machine Operator ID Gd Sodium Potassium Chloride Carbon Dioxide Anion Gap BUN Creatinine GFR Calculation Glucose POC Glucose 143 Calculated Osmolality Calcium Total Bilirubin AST ALT Alkaline Phosphatase Total Protein Albumin Globulin E. chaffeensis IgG Ab <1:64 E. chaffeensis IgM Ab <1:20 E. chaffeensis Interp See note E. chaffeensis Comment Not Reportable 12/22/19 12/23/19 12/23/19 18:30 00:35 04:15 WBC 15.8 H RBC 3.42 L Hgb 9.4 L Hct 30.3 L MCV 88.6 MCH 27.5 L MCHC 31.0 RDW 17.5 H Plt Count 48 L MPV Not Reportable Neut % (Auto) 89.0 Lymph % (Auto) 4.9 Andrews % (Auto) 4.7 Eos % (Auto) 0.0 Baso % (Auto) 0.3 Neut # (Auto) 14.04 H Lymph # (Auto) 0.8 Andrews # (Auto) 0.8 Eos # (Auto) 0.0 Baso # (Auto) 0.1 Nucleated RBC % (auto) 0.1 Nucleated RBCs # 0.0 Specimen Type Sample Site ABG pH ABG pCO2 ABG pO2 ABG HCO3 ABG Base Excess Luis Enrique Test Hematocrit O2 Delivery Device Mechanical Rate FiO2 Tidal Volume PEEP Milking Machine Operator ID Sodium 127 L Potassium 4.5 Chloride 91 L Carbon Dioxide 20 L Anion Gap 20.5 H BUN 68 H Creatinine 4.1 H GFR Calculation Not Reportable Glucose 147 H POC Glucose 134 Calculated Osmolality 266 L Calcium 7.2 L Total Bilirubin AST ALT Alkaline Phosphatase Total Protein Albumin Globulin E. chaffeensis IgG Ab E. chaffeensis IgM Ab E. chaffeensis Interp E. chaffeensis Comment 12/23/19 12/23/19 12/23/19 04:15 04:37 05:53 WBC RBC Hgb Hct MCV MCH MCHC RDW Plt Count MPV Neut % (Auto) Lymph % (Auto) Andrews % (Auto) Eos % (Auto) Baso % (Auto) Neut # (Auto) Lymph # (Auto) Andrews # (Auto) Eos # (Auto) Baso # (Auto) Nucleated RBC % (auto) Nucleated RBCs # Specimen Type Arterial Sample Site Radial, right ABG pH 7.24 L ABG pCO2 47.1 H ABG pO2 75.1 L ABG HCO3 20.0 L ABG Base Excess -7.3 L Luis Enrique Test Pos Hematocrit 30.7 L O2 Delivery Device Vent Mechanical Rate FiO2 45.0 Tidal Volume 0.45 PEEP 10.0 Milking Machine Operator ID Juan Daniel Sodium 126 L Potassium 4.7 Chloride 90 L Carbon Dioxide 20 L Anion Gap 20.7 H BUN 82 H* Creatinine 4.3 H GFR Calculation Not Reportable Glucose 114 POC Glucose 121 Calculated Osmolality 263 L Calcium 6.7 L Total Bilirubin 0.6 AST 122 H ALT 103 H Alkaline Phosphatase 60 Total Protein 5.1 L Albumin 2.3 L Globulin 2.8 E. chaffeensis IgG Ab E. chaffeensis IgM Ab E. chaffeensis Interp E. chaffeensis Comment 12/23/19 12/23/19 12/24/19 12:03 18:54 01:18 WBC RBC Hgb Hct MCV MCH MCHC RDW Plt Count MPV Neut % (Auto) Lymph % (Auto) Andrews % (Auto) Eos % (Auto) Baso % (Auto) Neut # (Auto) Lymph # (Auto) Andrews # (Auto) Eos # (Auto) Baso # (Auto) Nucleated RBC % (auto) Nucleated RBCs # Specimen Type Sample Site ABG pH ABG pCO2 ABG pO2 ABG HCO3 ABG Base Excess Luis Enrique Test Hematocrit O2 Delivery Device Mechanical Rate FiO2 Tidal Volume PEEP Milking Machine Operator ID Sodium Potassium Chloride Carbon Dioxide Anion Gap BUN Creatinine GFR Calculation Glucose POC Glucose 149 153 166 Calculated Osmolality Calcium Total Bilirubin AST ALT Alkaline Phosphatase Total Protein Albumin Globulin E. chaffeensis IgG Ab E. chaffeensis IgM Ab E. chaffeensis Interp E. chaffeensis Comment 12/24/19 12/24/19 12/24/19 04:30 04:30 05:30 WBC 17.8 H RBC 3.40 L Hgb 9.2 L Hct 29.1 L MCV 85.6 MCH 27.1 L MCHC 31.6 RDW 17.4 H Plt Count 41 L MPV Not Reportable Neut % (Auto) 89.3 Lymph % (Auto) 4.7 Andrews % (Auto) 4.4 Eos % (Auto) 0.1 Baso % (Auto) 0.3 Neut # (Auto) 15.92 H Lymph # (Auto) 0.8 Andrews # (Auto) 0.8 Eos # (Auto) 0.0 Baso # (Auto) 0.1 Nucleated RBC % (auto) 0.1 Nucleated RBCs # 0.0 Specimen Type Arterial Sample Site Brachial, right ABG pH 7.35 ABG pCO2 40.8 ABG pO2 70.0 L ABG HCO3 22.3 ABG Base Excess -3.1 L Luis Enrique Test N/a Hematocrit 30.1 L O2 Delivery Device Vent Mechanical Rate 14.0 FiO2 50.0 Tidal Volume 0.48 PEEP 8.0 Milking Machine Operator ID Hinja Sodium 127 L Potassium 4.7 Chloride 85 L Carbon Dioxide 22 Anion Gap 24.7 H BUN 104 H* Creatinine 5.1 H GFR Calculation Not Reportable Glucose 177 H POC Glucose Calculated Osmolality 270 L Calcium 6.5 L Total Bilirubin 0.5 AST 79 H ALT 83 H Alkaline Phosphatase 71 Total Protein 5.1 L Albumin 2.4 L Globulin 2.7 E. chaffeensis IgG Ab E. chaffeensis IgM Ab E. chaffeensis Interp E. chaffeensis Comment 12/24/19 13:10 WBC RBC Hgb Hct MCV MCH MCHC RDW Plt Count MPV Neut % (Auto) Lymph % (Auto) Andrews % (Auto) Eos % (Auto) Baso % (Auto) Neut # (Auto) Lymph # (Auto) Andrews # (Auto) Eos # (Auto) Baso # (Auto) Nucleated RBC % (auto) Nucleated RBCs # Specimen Type Sample Site ABG pH ABG pCO2 ABG pO2 ABG HCO3 ABG Base Excess Luis Enrique Test Hematocrit O2 Delivery Device Mechanical Rate FiO2 Tidal Volume PEEP Milking Machine Operator ID Sodium Potassium Chloride Carbon Dioxide Anion Gap BUN Creatinine GFR Calculation Glucose POC Glucose 167 Calculated Osmolality Calcium Total Bilirubin AST ALT Alkaline Phosphatase Total Protein Albumin Globulin E. chaffeensis IgG Ab E. chaffeensis IgM Ab E. chaffeensis Interp E. chaffeensis Comment Micro: Microbiology 12/22/19 08:50 Urine Culture - Final Urine,Clean Catch 12/18/19 12:06 Blood Culture - Final Blood NO GROWTH AFTER 5 DAYS 12/18/19 12:02 Blood Culture - Final Blood NO GROWTH AFTER 5 DAYS Cardiac Studies: No Data to Display
--- NOTE | 2019-12-24 14:33 | PC.NURSE ---
OR staff on unit to take pt for HD catheter placement
--- NOTE | 2019-12-24 14:52 | SC_ITS ---
WS: [id number] C-arm fluoroscopy of the right chest, 12/24/2019 Clinical Data: SURGERY Comparison: None. Findings: There is a large bore catheter inserted into the right internal jugular vein and ending in the superi or vena cava. SC/C-arm FL for CVA [id number] Impression: Large bore catheter inserted into the right internal jugular vein.
--- NOTE | 2019-12-24 15:09 | P.OP_ITS ---
Operative Report Date of procedure: December 24, 2019 Pre-op Diagnosis: Acute kidney injury with renal insufficiency/failure. Post-op diagnosis: same Procedure Done: Temporary hemodialysis catheter placement into the right internal jugular vein with intraoperative ultrasound and fluoroscopy interpretation. Specimens removed/disposition: None. Surgeon: Darius Chi Anesthesia: General Estimated blood loss (mL): 5 Complications: None. Condition: stable Disposition: ICU Procedure: The patient was brought to the operating room and was placed in a supine position on the operating room table. General anesthesia was continued, as the patient was already intubated and sedated in the ICU. The right side of the neck and chest were prepped and draped in a sterile fashion. Intraoperative ultrasound was used to find the right internal jugular vein as evidenced by its size and compressibility. 1% lidocaine was used for local anesthetic on the neck and the right internal jugular vein was accessed on the first pass with a needle and syringe as evidenced by the return of dark nonpulsatile blood. The guidewire was easily passed down the needle and the needle was removed. The C-arm was positioned and showed the guidewire extending down the vena cava. A scalpel was used to slightly enlarge the skin opening at the insertion point of the J-wire. Small to medium sized dilators were then sequentially placed over the guidewire to dilate the skin and subcutaneous tissue. An 11.5 Vietnamese 16 cm temporary dialysis catheter was then easily passed over the wire into the vein. The wire was removed. The C-arm was once again positioned and showed good placement of the dialysis catheter tip in the vena cava. Both ports were aspirated and flushed with hep flush solution. Both ports showed excellent flow and were then left filled with concentrated hep flush solution. The catheter was sewn in place on the right side of the neck with some interrupted sutures of 2-0 silk. A sterile dressing followed. The patient was taken back to the ICU postoperatively in stable condition. INTRAOPERATIVE FLUOROSCOPY FINDINGS: Intraoperative fluoroscopic images of a hemodialysis catheter placement were reviewed. An initial image reveals a J-wire entering the right internal jugular vein and extending down the vena cava. Incidental note is made of pacemaker wires. Subsequent images reveal a dialysis catheter on that side of the chest with its tubing tip in good location in the superior vena cava. No obvious pneumothorax is identified.
--- NOTE | 2019-12-24 15:40 | PC.NURSE ---
Back from OR, eyes closed regular RR on mechanical ventilation fio2 50, island dressing to right neck covering HD cath site clean dry and intact
[2019-12-24] MEDS: heparin, porcine 1,000 unit/mL INJ 10 mL 10000 UNIT XX (15:42)
[2019-12-24 15:50] LABS: Hepatitis B Surface AB 3.5 (0-8.5); Hepatitis B Surface Antigen Non-Reactive (Nonreactive); Hepatitis C Virus Antibody Non-Reactive (Nonreactive)
[2019-12-24 16:12] LABS: RMSF IGG DETECTED; RMSF IGM NOT DETECTED
--- NOTE | 2019-12-24 17:30 | PM.PN ---
Subjective Subjective: Interval history: off pressors, remains intubated HD catheter placed and the patient to get dialysis today Opening eyes and following commands Medications: Reviewed: Yes Vitals/I&O/Wt Last Vital Signs Temp 98.4 F 12/24/19 12:45 Pulse 77 12/24/19 16:20 Resp 18 12/24/19 16:32 BP 132/54 12/24/19 16:04 Pulse Ox 92 12/24/19 16:18 12/24/19 12/24/19 12/24/19 06:59 14:59 22:59 Intake Total 336.105 / 2148.350 1343.417 / 1343.417 100 / 1443.417 Output Total 870 / 910 200 / 200 Balance -533.895 / 2306.841 4710.417 / 1343.417 -100 / 1243.417 Weight last 48 hrs Weight 240 lb 9.6 oz Weight 232 lb 1.6 oz Physical Exam Narrative: EXAM NARRATIVE: PHYSICAL EXAM: General: lying in bed, sedated and intubated. 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 opens eyes SKIN: no rash Urinary Catheter Management^: Boss: Cath Placed During This Visit: yes Reason for Continuing Indwelling Catheter: Accurate Measurement of Urinary Output in Critically Ill Patients Urinary Catheter Date of Insertion: 12/19/19 Urinary Catheter Time of Insertion: 14:00 Data : 12/24/19 04:30 12/24/19 04:30 Micro: Microbiology 12/22/19 08:50 Urine Culture - Final Urine,Clean Catch A&P Assessment and plan (1) Thrombocytopenia: Status: Acute (2) Coronary artery disease: Status: Acute Qualifiers: Associated angina: with unspecified angina Coronary Disease-Associated Artery/Lesion type: unspecified vessel or lesion type [place] vs. transplanted heart: unspecified whether [place] or transplanted heart Qualified Code(s): I25.119 - Atherosclerotic heart disease of [place] coronary artery with unspecified angina pectoris (3) Acute kidney injury: Status: Acute (4) Pneumonia: Status: Acute Qualifiers: Pneumonia type: due to unspecified organism Laterality: bilateral Lung location: lower lobe of lung Qualified Code(s): J18.9 - Pneumonia, unspecified organism (5) Septic shock: Status: Acute Overall: 84-year-old female admitted to ICU for acute respiratory failure and hemodynamic instability likely in septic shock with multiorgan failure. NEURO: Sedated with fentanyl Opening eyes and at times following commands PULM: #Acute respiratory failure likely secondary to pneumonia #Questionable history of COPD On mechanical ventilation VC mode 450 TV/respiratory rate 14/FiO2 40%/PEEP 6 ABG today morning on 50% FiO2: 7.3 / Continue cefepime, Doxy: Flagyl Continue DuoNeb nebulizations every 4 hours CVS: #Shock likely due to sepsis Currently off vasopressors Try to keep map above 65 Lactic acid improving-2.6 Echo 12/22/2019: Technically difficult study but grossly LV appear normal, diastolic dysfunction noted and moderate pulmonary hypertension with small pericardial effusion #Recent pacemaker placement Pacemaker insertion site no signs of infection noted GI: #Elevated LFTs likely due to hypotension - improving #Abdominal distention likely due to ileus secondary to pressors, opiates - can start on TF at low rate - CT abdomen: A distended sigmoid colon but otherwise no small or large bowel obstruction. normal gallbladder -Add gentle bowel regimen-senna docusate at night/lactulose 15 twice daily - Monitor rectal tube output - Avoid hepatotoxic medications and monitor LFTs and CK RENAL: #ANAHY over? CKD secondary to septic shock/rhabdomyolysis/contrast induced-prerenal progressing to ATN #Normal anion gap metabolic acidosis likely due to RTA -Worsening renal parameters -I/O/N: 3 L / 1 L/positive 1.9 L over last 24 hours; significantly reduced urine output -Monitor electrolytes and supplement accordingly -Can DC bicarb drip Monitor calcium for hypocalcemia -DC IV fluids if develops signs of fluid overload -Urine electrolytes, renal ultrasound -Reduced urine output and fluid overload -will be on hemodialysis as per renal HEM: #Leukocytosis likely secondary to sepsis due to pneumonia/steroids COVID antigen and PCR both negative awaiting for final culture results and tick panel Meanwhile covering with cefepime, doxy, Flagyl #Thrombocytopenia-no signs of bleeding Monitor platelets DVT prophylaxis Heparin for DVT prophylaxis is held due to thrombocytopenia-currently on SCDs ENDO: Monitor sugars and place on scale coverage to target sugars below 200 ID: #Septic shock likely secondary to pneumonia Reducing requirements of Levophed currently on 7 MCG from 14 Awaiting final cultures and tick panel Meanwhile covering with cefepime, doxy, Flagyl Monitor WBC and fevers Case discussed with RN, and Dr. Guzman hospitalist Overall impression: patient is still critically ill, requiring mechanical ventilation, although positive sign is reducing requirements of pressors. At this point worsening renal functions although metabolic acidosis responded to bicarb infusion but it is still concerning for sepsis with renal failure even though covered with broad-spectrum antibiotics while final cultures are pending. Patient needs renal replacement therapy . Attestations Medical Necessity Statement*: Septic shock with renal failure Time Spent in Patient Care: 16 - 35 minutes (>than 50% of time spent in counselling and/or direct pt care on unit). 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 transplanted heart: unspecified whether [place] or transplanted heart Acute kidney injury N17.9 Pneumonia J18.9 Pneumonia type: due to unspecified organism Laterality: bilateral Lung location: lower lobe of lung Septic shock A41.9; R65.21 Time Spent (min) 33
[2019-12-24] MEDS: sodium chloride 0.9% 1,000 ML 50 ML IV (21:19)
--- NOTE | 2019-12-24 21:35 | PC.NURSE ---
Pacemaker Pacemaker is currently V-paced at rate in 70's. Pt is intermittently AV paced but not consistent, suspicion of it not capturing appropriately. Will continue to monitor and notify physician.
[2019-12-24 21:50] LABS: Glucose Point of Care 117 mg/dL (70-110)
[2019-12-25] VITALS (37 sets, daily range): BP systolic 118–154; BP diastolic 45–68; PULSE 73–92; RESP 14–21; TEMP 36.4–37.6; O2SAT 90–98
[2019-12-25] MEDS: cefepime 1,000 MG in sodium chloride 0.9% (plus) 50 ML 100 MG IV ×2 (00:56→23:57)
[2019-12-25] MEDS: ipratropium-albuterol 3 mL Neb INHALATION ×5 (04:13→21:41)
[2019-12-25 04:15] LABS: Basophils # 0.1 10^3/uL (0.0-0.1); Basophils % 0.3 %; Eosinophils % 0.1 %; Hematocrit 27.6 % (37.0-47.0); Hemoglobin 9.1 g/dL (11.5-15.3); Lymphocytes # 0.6 10^3/uL (0.8-4.8); Lymphocytes % 3.9 %; Mean Corpuscular Hemoglobin 28.3 pg (28.0-34.0); Mean Corpuscular Volume 85.7 fL (81-99); Monocytes % 7.1 %; Neutrophils # 12.31 10^3/uL (1.8-7.7); Neutrophils % 84.6 %; Nucleated Red Blood Cells % 0 %; Platelet Count 61 10^3/cmm (130-400); Red Blood Count 3.22 10^6/uL (4.1-5.3); Red Cell Distribution Width 17.3 % (12.1-15.1); White Blood Count 14.6 10^3/uL (4.0-10.0)
[2019-12-25 04:45] LABS: Alanine Aminotransferase 76 U/L (0-33); Albumin Level 2.3 g/dL (3.5-5.2); Alkaline Phosphatase 77 IU/L (35-105); Anion Gap 18.1 (5-19); Aspartate Amino Transferase 71 U/L (0-32); Blood Urea Nitrogen 67 mg/dL (8-23); Calcium 6.7 mg/dL (8.5-10.5); Carbon Dioxide 26 mmol/L (22-29); Chloride 95 mmol/L (98-107); Globulin 2.9 g/dL (1.3-4.6); Glucose 136 mg/dL (65-115); Osmolality Calculated 281 mOsm/kg (285-295); Potassium 4.1 mmol/L (3.5-5.1); Sodium 135 mmol/L (136-145); Total Bilirubin 0.7 mg/dL (0.15-1.2); Total Protein 5.2 g/dL (6.6-8.7)
--- NOTE | 2019-12-25 05:01 | PC.NURSE ---
Pacemaker Interrogation Completed at this time with [employer]. Awaiting faxed report.
--- NOTE | 2019-12-25 05:09 | PC.NURSE ---
[employer] Report Verbal report given from Génesis Fay. Chronically low r waves. Lead trends stable. No arrhythmias, lower rate set at 60. Report dates back to december 16. Mode VDDR. Report to be faxed.
[2019-12-25 05:13] LABS: ABG PCO2 40.8 mmHg (35-45); ABG PH Result 7.42 (7.35-7.45); Arterial Blood Gas Hematocrit 28.4 % (37-47); Base Excess ABG 1.9 mmol/L (-2.0-2.0); Blood Gas Allen Test Pos; Blood Gas Sample Site Radial, right; Blood Gas Sample Type Arterial; Blood Gas Tidal Volume 0.48; HCO3 ABG 26.5 mmol/L (22-26); Oxygen Device VENT; PO2 ABG 66.4 mmHg (80.0-100.0)
[2019-12-25 05:21] LABS: Slide Review Slide Review Perform
--- NOTE | 2019-12-25 06:00 | XR_ITS ---
WS: [id number] Portable AP supine chest, 12/25/2019 Clinical Data: Hypoxia Comparison: Portable chest, 12/23/2019. Findings: The endotracheal tube, nasogastric tube, right internal jugular venous catheter and pacemak er remain in the same position. There is right middle lobe atelectasis or minimal pneumonia. There ar e small bilateral pleural effusions. The heart is slightly enlarged. The aortic arch is tortuous. Mon itor leads are on the chest wall. XR/XR chest 1V portable [id number] Impression: 1. Multiple tubes unchanged in position. 2. Right middle lobe atelectasis and/or pneumonia unchanged. 3. Small bilateral pleural effusions.
--- NOTE | 2019-12-25 06:05 | P.PN_ITS ---
Subjective Subjective: Interval history: HD yesterday, tolerated well 750 ml UF Medications: Reviewed: Yes Vitals/I&O/Wt Last Vital Signs Temp 97.6 F 12/25/19 04:00 Pulse 87 12/25/19 04:13 Resp 14 12/25/19 05:56 BP 133/58 12/25/19 04:00 Pulse Ox 93 12/25/19 04:13 12/24/19 12/24/19 12/25/19 14:59 22:59 06:59 Intake Total 1343.417 / 1343.417 200 / 1543.417 802.160 / 2345.577 Output Total 1175 / 1175 725 / 1900 Balance 1343.417 / 1343.417 -975 / 368.417 77.160 / 445.577 Weight last 48 hrs Weight 112.854 kg Weight 109.134 kg Physical Exam Const: COMMON NORMALS: no acute distress GENERAL APPEARANCE: other (awake) Resp: COMMON NORMALS: normal respiratory effort AUSCULTATION: bronchial breath sounds Cardio: COMMON NORMALS: regular rate and regular rhythm RATE: regular rate RHYTHM: regular rhythm Extremity: GENERAL: Yes edema Urinary Catheter Management^: Boss: Cath Placed During This Visit: yes Reason for Continuing Indwelling Catheter: Accurate Measurement of Urinary Output in Critically Ill Patients Urinary Catheter Date of Insertion: 12/19/19 Urinary Catheter Time of Insertion: 14:00 Data : 12/25/19 03:46 12/25/19 03:46 Other Labs: 7.42/41/66 Micro: Microbiology 12/22/19 08:50 Urine Culture - Final Urine,Clean Catch Other data: CXR 1. Multiple tubes unchanged in position. 2. Right middle lobe atelectasis and/or pneumonia unchanged. 3. Small bilateral pleural effusions. A&P Additional A&P Information Impression: 1. Acute kidney injury, due to sepsis, contrast, mild rhabdomyolysis. Urine output has increased (750 ml yesterday). First HD session yesterday was well-tolerated. 2. Hypervolemic hyponatremia - serum sodium now normal 3. Metabolic acidosis resolved - discontinue IV sodium bicarbonate 4. 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
[2019-12-25 06:20] LABS: Glucose Point of Care 138 mg/dL (70-110)
[2019-12-25] MEDS: metroNIDAZOLE IV 500 MG/100 ML PREMIX 100 MG IV ×3 (06:30→23:58)
[2019-12-25] MEDS: lactulose oral liq 20 gm/30 mL UDC 10 GM PO ×2 (08:38→19:28)
[2019-12-25] MEDS: sennosides-docusate Tablet 1 TAB PO ×2 (08:39→17:59)
[2019-12-25] MEDS: pantoprazole 40 mg SDV IVP ×2 (08:39→19:28)
--- NOTE | 2019-12-25 08:54 | P.PN_ITS ---
Subjective Subjective: Interval history: She is awake, looking around, makes eye contact to loud voice or touch, however, is somewhat sluggish, and does not follow commands very well. Does try to squeeze her hands bilaterally, right side appears to be weaker, although right upper extremity is also much more swollen. Appears to be moving both her feet, but does not follow commands to do so. On discussion with her daughter she states that she is very hard of hearing, and has hearing aids which daughter took but home as she was requested to do at the hospital. She does report that her mother also does a little bit of lipreading, and so it is difficult to do with everybody wearing masks. She denies any overt dementia. States that her mother sometimes may be a bit forgetful but otherwise is oriented x3, but with old persons memory. Vitals/I&O/Wt Last Vital Signs Temp 98.7 F 12/25/19 07:00 Pulse 73 12/25/19 07:00 Resp 14 12/25/19 07:00 BP 118/50 12/25/19 07:00 Pulse Ox 93 12/25/19 07:00 12/24/19 12/25/19 12/25/19 22:59 06:59 14:59 Intake Total 200 / 1543.417 802.160 / 2345.577 Output Total 1175 / 1175 725 / 1900 Balance -975 / 368.417 77.160 / 445.577 Weight last 48 hrs Weight 112.854 kg Weight 109.134 kg Physical Exam Const: COMMON NORMALS: no acute distress OTHER: Intubated. Alert. Not in discomfort. Appears to not know when asked about pain, but answers not very definitive. Tries to squeeze her hands. Does not follow commands very well Appears comfortable. HENMT: COMMON NORMALS: oropharynx normal Neck/C-Spine: COMMON NORMALS: no JVD Resp: COMMON NORMALS: normal respiratory effort AUSCULTATION: rhonchi (few) Cardio: COMMON NORMALS: no JVD, regular rhythm, S1 normal heart sound present, S2 normal heart sound present and No murmurs present (Cardio) RHYTHM: regular rhythm HEART SOUNDS: S1 normal heart sound present and S2 normal heart sound present GI: COMMON NORMALS: Normal to inspection, nondistended, normoactive bowel sounds present and Soft to palpation PALPATION: Yes Soft to palpation OTHER: Mildly tender Extremity: COMMON NORMALS: no joint enlargement OTHER: 1+ leg edema. 3+ UE edema bilatearlly Neuro: COMMON NORMALS: moves all extremities Skin: COMMON NORMALS: no rashes or lesions noted GENERAL SKIN EXAM: no rashes or lesions noted Urinary Catheter Management^: Boss: Cath Placed During This Visit: yes Reason for Continuing Indwelling Catheter: Accurate Measurement of Urinary Output in Critically Ill Patients Urinary Catheter Date of Insertion: 12/19/19 Urinary Catheter Time of Insertion: 14:00 Data : 12/25/19 03:46 12/25/19 03:46 Micro: Microbiology 12/22/19 08:50 Urine Culture - Final Urine,Clean Catch A&P Assessment and plan (1) Encephalopathy: She is alert, appears to make eye contact, although sluggish, and d ifficult to say whether she actually understands the questions. When asked if she is in pain appears to weakly not know, however, it is not very clearly defined. Does appear to try to squeeze both hands, right side appears to be somewhat weaker, although does have more swelling. Does not follow commands to move her legs or feet, but appears to move her feet independently. She impairment appears to perhaps play a role as her daughter says she normally wears hearing aids which were taken back home, and also sometimes lip reads which she cannot do due to masking. She has perhaps some mild memory issues occasionally, daughter denies dementia. Currently she is still on small dose of fentanyl, although overall is much more alert. Discussed with daughter given age, critical illness, we may expect some delirium. Encephalopathy may be secondary to sepsis/infection, possibly metabolic derangements with renal failure, but also cannot entirely exclude other causes, possibly stroke with some right-sided weakness. We will continue to attempt to wean sedation as tolerating, reassess her progress. Will obtain plain CT of the head to exclude bleeding or other major abnormality. Additional evaluation may be performed depending on her progress. Status: Acute (2) Hypotension: Improved. Has been off pressor since 12/23 morning. Will reduce hydrocortisone dose to 50 mg. Status: Acute (3) Sepsis: Improving. Hypotension so far has resolved. Will wean down stress dose steroids. Leukocytosis appears to be trending down. Continue antibiotics. Monitor for improvement in renal function. For now still on PEEP of 10, FiO2 50%. Is going to receive additional hemodialysis today. Will reduce IVF rate. Appears to be producing some urine. Attempt to wean ventilatory support as tolerating. Abdomen is somewhat tender. Belly is soft. Lactic acid did improve since admission. 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 On CT air distended sigmoid colon no evidence of obstruction. She is producing some stool which is liquid. C. difficile negative. No hydronephrosis. Feeds held for now. Appreciate surgical evaluation. Suspicion also of tickborne illness. Continue doxycycline empirically. Tick panel is pending. Lyme -ve so far. Thrombocytopenia, elevation of liver function parameters which have been improving. Mild hyponatremia. Peripheral smear with suspected infectious etiology of thrombocytopenia. No blasts. Few if any schistocytes. Status: Acute (4) Acute respiratory failure: Continue treatment for pneumonia. Additional hemodialysis today. For now continue cefepime, doxycycline, Flagyl. MRSA PCR negative. Vancomycin discontinued. Levaquin discontinued. Sputum culture with upper respiratory rajesh. Urine bacterial antigens negative. Status: Acute (5) Pneumonia: Multilobar pneumonia. Persistent pneumonia right middle lobe on chest x- ray. Recurrent fever resolved. Cefepime. Vancomycin stopped. Levaquin stopped. Flagyl was added previously for significant secretions. She was also placed on doxycycline 1 day following admission secondary to history of tick exposure Sputum culture with only upper respiratory rajesh. Urine bacterial antigens negative. COVID retested, negative. With recurrent fever consider bacteremia, but blood cultures repeatedly negative. TTE difficult study, probably normal EF, pulm HTN. Pacemaker site without concerns outwardly. Assess by limited US. Status: Acute Qualifiers: Laterality: bilateral Lung location: lower lobe of lung Pneumonia type: due to unspecified organism Qualified Code(s): J18.9 - Pneumonia, unspecified organism (6) Acute kidney injury: Underwent hemodialysis last night with 750 mL removed. Additional 750 mL urine output overnight. Now likely ATN. By Feurea appeared to be prerenal initially. Blood pressures have been improving. Bicarbonate was discontinued. Continue to support blood pressure. No hydronephrosis on renal ultrasound. Discussed with nephrology, appreciate recommendations on reassessment with regards to hemodialysis, in which case we will need access, if can tolerate hemodialysis here, versus CRRT for which would require transfer to outside facility. Substation Manager will get back to me or surgeon with regards to need for access. CK with some elevation, has been gradually decreasing. At home appears was taking naproxen, lisinopril. Concern for also contrast- induced nephropathy with recent CTA. Status: Acute (7) Elevated troponin: Type II. No evidence of acute myocardial infarction Status: Acute (8) Thrombocytopenia: Stabilized. Low in 50s. Heparin products had been held. Pending tick panel. Continue doxy empirically. Peripheral smear without blasts, few if any schistocytes per discussion with pathologist. Leukocytosis. Thrombocytopenia is suggested perhaps secondary to acute infection, sepsis. Liver dysfunction. Pantoprazole, cefepime were started after thrombocytopenia was worsening, so not likely contributed. Status: Acute Additional A&P Information Metabolic acidosis. As above. Secondary to sepsis, renal failure. Continue to manage underlying causes. Transaminitis. Improving. Unremarkable hepatitis panel. Has not had any ab dominal discomfort. Development of this is likely secondary to sepsis. Heterogenous liver. Suspect injury secondary to hypotension, sepsis, possibly tick-borne illness. History of tick bites. Doxycycline. Note that she has become leukopenic as well as thrombocytopenic which could be indicative of tickborne disease although sepsis from pneumonia is also possible. Acute hypoxic respiratory failure. Differential includes CHF, worsening pneumonia, PE. No large PE noted on CTA. TTE pending. Lasix on hold. Hold IVF. History of CHF awaiting echocardiogram. History of COPD. Continue nebs History of coronary artery disease. Asymptomatic. Hypertension. For now continue home medications Multiple other medical problems as listed in her past medical history Attestations Medical Necessity Statement*: Continue admission for assessment management of improving sepsis, pneumonia and hypoxic respite failure required mechanical ventilator support, acute kidney injury requiring hemodialysis. Coding Level of Care Code Acute Director Business Systems for [facility] Fwd Exam Comprehensive Diagnoses Encephalopathy G93.40 Hypotension I95.9 Sepsis A41.9 Acute respiratory failure J96.00 Pneumonia J18.9 Laterality: bilateral Lung location: lower lobe of lung Pneumonia type: due to unspecified organism Acute kidney injury N17.9 Elevated troponin R79.89 Thrombocytopenia D69.6
--- NOTE | 2019-12-25 09:05 | CTR_ITS ---
PROCEDURE INFORMATION: Exam: CT Head Without Contrast Exam date and time: 12/25/2019 5:21 PM Age: 84 years old Clinical indication: Altered mental status/memory loss; Confusion or disorientation; Patient HX: AMS - ventilated PT TECHNIQUE: Imaging protocol: Computed tomography of the head without contrast. Radiation optimization: All CT scans at this facility use at least one of these dose optimization techniques: automated exposure control; mA and/or kV adjustment per patient size (includes targeted exams where dose is matched to clinical indication); or iterative reconstruction. COMPARISON: CT head wo con* [id number] 01/21/2017 10:04 AM RADIATION DOSE METRICS: Total DLP (mGy-cm): 1144.81 FINDINGS: Brain: Mild diffuse cortical volume loss, appropriate for patient age. Mild hypodensities in supratentorial periventricular and subcortical white matter. No intracranial hemorrhage. Ventricles: Normal. No ventriculomegaly. Bones/joints: Unremarkable. No acute fracture. Sinuses: Visualized sinuses are unremarkable. No fluid levels. Mastoid air cells: Small mastoid effusions, left greater than right. Orbits: Prior cataract surgery. Vasculature: No hyperdense artery. Soft tissues: Unremarkable. CT/CT head wo con* [id number] IMPRESSION: 1. No acute intracranial abnormality. 2. Mild microangiopathy. Radiation Dose CTDIVOL = (mGy): DLP = 1144.81 (mGy-cm)
--- NOTE | 2019-12-25 11:20 | PC.SOCIAL ---
IMM Updated Page 2 of IMM updated and given to patient. Initialed, dated, and timed and placed back in chart.
--- NOTE | 2019-12-25 11:24 | P.PN_ITS ---
Subjective Subjective: Interval history: Patient opening eyes and following commands occasionally. Yesterday got dialysis and 750 cc removed. Today again on dialysis and plan to take out at least 1.5 L of fluid. Off pressors. WBC 14 K, no fever spikes, platelets 61K today Medications: Reviewed: Yes Vitals/I&O/Wt Last Vital Signs Temp 98.5 F 12/25/19 11:00 Pulse 87 12/25/19 11:00 Resp 17 12/25/19 10:12 BP 147/58 12/25/19 11:00 Pulse Ox 93 12/25/19 11:00 12/24/19 12/25/19 12/25/19 22:59 06:59 14:59 Intake Total 200 / 1543.417 802.160 / 2345.577 Output Total 1175 / 1175 725 / 1900 112 / 112 Balance -975 / 368.417 77.160 / 445.577 -112 / -112 Weight last 48 hrs Weight 248 lb 12.8 oz Weight 240 lb 9.6 oz Physical Exam Narrative: EXAM NARRATIVE: PHYSICAL EXAM: General: lying in bed, sedated and intubated. HEENT:NCAT, PERRLA, EOMI Neck: Supple Lungs: Chest clear reduced breath sounds in bilateral bases Heart: s1/s2, RRR Abd: soft, distended, BS +VE Extremities: Bilateral upper extremity swelling with 1+ pedal edema INFO SPECIALIST: sedated and limited INFO SPECIALIST exam possible. opens eyes SKIN: no rash Urinary Catheter Management^: Boss: Cath Placed During This Visit: yes Reason for Continuing Indwelling Catheter: Accurate Measurement of Urinary Output in Critically Ill Patients Urinary Catheter Date of Insertion: 12/19/19 Urinary Catheter Time of Insertion: 14:00 Data : 12/25/19 03:46 12/25/19 03:46 Micro: Microbiology 12/22/19 08:50 Urine Culture - Final Urine,Clean Catch A&P Assessment and plan (1) Thrombocytopenia: Status: Acute (2) Coronary artery disease: Status: Acute Qualifiers: Associated angina: with unspecified angina Coronary Disease-Associated Artery/Lesion type: unspecified vessel or lesion type [place] vs. transplanted heart: unspecified whether [place] or transplanted heart Qualified Code(s): I25.119 - Atherosclerotic heart disease of [place] coronary artery with unspecified angina pectoris (3) Acute kidney injury: Status: Acute (4) Pneumonia: Status: Acute Qualifiers: Pneumonia type: due to unspecified organism Laterality: bilateral Lung location: lower lobe of lung Qualified Code(s): J18.9 - Pneumonia, unspecified organism (5) Septic shock: Status: Acute Overall: 84-year-old female admitted to ICU for acute respiratory failure and hemodynamic instability likely in septic shock with ANAHY. NEURO: Significant weakness, opens eyes but does not follow commands Could be ICU delirium, critical care/steroid myopathy, to rule out stroke-we will get CT head Opening eyes and at times following commands Also family mentioned patient has hearing problem PULM: #Acute respiratory failure likely secondary to pneumonia #Questionable history of COPD On mechanical ventilation VC mode 450 TV/respiratory rate 14/FiO2 50%/PEEP 6 ABG today morning on 50% FiO2: 7.4 / Patient received antibiotics for about 7 days and all cultures negative - can DC cefepime FlagyL Continue DuoNeb nebulizations every 4 hours -Patient on dialysis and plan is to take out 1.5 L of fluid today tomorrow we will try weaning trial to extubate the patient CVS: #Shock likely due to sepsis-resolved Currently off vasopressors Try to keep map above 65 Lactic acid improving-2.6 Echo 12/22/2019: Technically difficult study but grossly LV appear normal, diastolic dysfunction noted and moderate pulmonary hypertension with small pericardial effusion #Recent pacemaker placement Pacemaker insertion site no signs of infection noted GI: #Elevated LFTs likely due to hypotension - improving #Abdominal distention likely due to ileus secondary to pressors, opiates - can start on TF at low rate - CT abdomen: A distended sigmoid colon but otherwise no small or large bowel obstruction. normal gallbladder -Add gentle bowel regimen-senna docusate at night/lactulose 15 twice daily - Monitor rectal tube output - Avoid hepatotoxic medications and monitor LFTs and CK RENAL: #ANAHY over? CKD secondary to septic shock/rhabdomyolysi/contrast-induced -Started on dialysis yesterday took out 75 cc and today plan is to take about 1500 cc -Monitor electrolytes and supplement accordingly -Can DC bicarb drip Monitor calcium for hypocalcemia -DC IV fluids if develops signs of fluid overload -Urine electrolytes, renal ultrasound -Reduced urine output and fluid overload -will be on hemodialysis as per renal HEM: #Leukocytosis likely due to pneumonia/steroids COVID antigen and PCR both negative tick panel pending-can continue doxy Patient received antibiotics for about 7 days and all cultures negative - can DC cefepime Flagyl #Thrombocytopenia-improving no signs of bleeding Monitor platelets DVT prophylaxis Heparin for DVT prophylaxis is held due to thrombocytopenia-currently on SCDs ENDO: Monitor sugars and place on scale coverage to target sugars below 200 ID: #Septic shock likely secondary to pneumonia-shock resolved Off pressors, reducing requirement of steroids COVID antigen and PCR both negative tick panel pending-can continue doxy Patient received antibiotics for about 7 days and all cultures negative - can DC cefepime Flagyl Monitor WBC and fevers Case discussed with RN, and Dr. Guzman hospitalist Overall impression: Patient is clinically improving, off pressors, cultures negative so far, tick panel pending and recommended to continue doxy, started on dialysis yesterday, will try weaning trial from tomorrow once fluid is taken out through dialysis. Attestations Medical Necessity Statement*: Still on ventilation, needs fluid removal through dialysis and assess mentation before proceeding for extubation trials Time Spent in Patient Care: 16 - 35 minutes (>than 50% of time spent in counselling and/or direct pt care on unit) . Coding Level of Care Code Acute Crocheter for [facility] Fwd Diagnoses Thrombocytopenia D69.6 Coronary artery disease I25.119 Associated angina: with unspecified angina Coronary Disease-Associated Artery/Lesion type: unspecified vessel or lesion type [place] vs. transplanted heart: unspecified whether [place] or transplanted heart Acute kidney injury N17.9 Pneumonia J18.9 Pneumonia type: due to unspecified organism Laterality: bilateral Lung location: lower lobe of lung Septic shock A41.9; R65.21 Time Spent (min) 33
[2019-12-25] MEDS: hydrocortisone 100 mg/2 mL SDV 50 MG IVP ×2 (14:00→22:03)
[2019-12-25] MEDS: doxycycline 100 MG in sodium chloride 0.9% (plus) 100 ML IV ×2 (14:01→22:03)
[2019-12-25 14:02] LABS: Glucose Point of Care 91 mg/dL (70-110)
[2019-12-25 17:24] LABS: Glucose Point of Care 103 mg/dL (70-110)
[2019-12-25] MEDS: sodium chloride 0.9% 1,000 ML 30 ML IV (19:27)
[2019-12-26] VITALS (30 sets, daily range): BP systolic 132–164; BP diastolic 55–77; PULSE 60–93; RESP 7–28; TEMP 36.2–37.4; O2SAT 94–99
[2019-12-26 00:34] LABS: Glucose Point of Care 104 mg/dL (70-110)
[2019-12-26] MEDS: ipratropium-albuterol 3 mL Neb INHALATION ×6 (00:45→21:05)
[2019-12-26 03:54] LABS: Basophils % 0.3 %; Eosinophils % 0.1 %; Hemoglobin 8.7 g/dL (11.5-15.3); Lymphocytes # 0.7 10^3/uL (0.8-4.8); Lymphocytes % 6.8 %; Mean Corpuscular HGB Conc 32.2 g/dL (30.0-36.0); Mean Corpuscular Volume 86.8 fL (81-99); Monocytes # 1.1 10^3/uL (0.2-0.9); Monocytes % 10.9 %; Neutrophils # 8.06 10^3/uL (1.8-7.7); Neutrophils % 80.5 %; Nucleated Red Blood Cells % 0.2 %; Platelet Count 61 10^3/cmm (130-400); Red Blood Count 3.11 10^6/uL (4.1-5.3); Red Cell Distribution Width 17.4 % (12.1-15.1)
[2019-12-26 04:19] LABS: Alanine Aminotransferase 59 U/L (0-33); Albumin Level 2.4 g/dL (3.5-5.2); Alkaline Phosphatase 76 IU/L (35-105); Anion Gap 13.8 (5-19); Aspartate Amino Transferase 48 U/L (0-32); Blood Urea Nitrogen 41 mg/dL (8-23); Calcium 7.3 mg/dL (8.5-10.5); Carbon Dioxide 27 mmol/L (22-29); Chloride 100 mmol/L (98-107); Globulin 2.7 g/dL (1.3-4.6); Glucose 127 mg/dL (65-115); Osmolality Calculated 283 mOsm/kg (285-295); Potassium 3.8 mmol/L (3.5-5.1); Sodium 137 mmol/L (136-145); Total Bilirubin 0.8 mg/dL (0.15-1.2); Total Protein 5.1 g/dL (6.6-8.7)
[2019-12-26 05:05] LABS: ABG PCO2 38.5 mmHg (35-45); ABG PH Result 7.45 (7.35-7.45); Arterial Blood Gas Hematocrit 31.6 % (37-47); Base Excess ABG 2.7 mmol/L (-2.0-2.0); Blood Gas Allen Test Pos; Blood Gas Sample Site Radial, right; Blood Gas Sample Type Arterial; HCO3 ABG 26.8 mmol/L (22-26); Oxygen Device VENT; PO2 ABG 92.3 mmHg (80.0-100.0)
--- NOTE | 2019-12-26 06:00 | XRR_ITS ---
PROCEDURE INFORMATION: Exam: XR Chest, 1 View Exam date and time: 12/26/2019 5:40 AM Age: 84 years old Clinical indication: Dyspnea; Additional info: Hypoxia TECHNIQUE: Imaging protocol: XR of the chest Views: 1 view. COMPARISON: CR XR chest 1V portable [id number] 12/25/2019 4:44 AM FINDINGS: An endotracheal tube is seen with the tip above the hiwot. Nasogastric tube is seen with the tip in the stomach but not included on this examination. A left subclavian pacemaker is present. Lungs: Persistent atelectasis versus infiltrates are seen in the left base. Some improvement is seen in the right base. Bilateral small pleural effusions are present. No pneumothorax is present. A calcified granuloma is seen in the right upper lobe. The heart size is borderline. XR/XR chest 1V portable [id number] IMPRESSION: Some improvement is seen. Negative for pneumothorax.
[2019-12-26 06:10] LABS: Glucose Point of Care 125 mg/dL (70-110)
[2019-12-26] MEDS: metroNIDAZOLE IV 500 MG/100 ML PREMIX 100 MG IV ×3 (06:34→22:56)
[2019-12-26] MEDS: pantoprazole 40 mg SDV IVP ×2 (08:03→19:38)
[2019-12-26] MEDS: sennosides-docusate Tablet 1 TAB PO (08:03)
[2019-12-26] MEDS: lactulose oral liq 20 gm/30 mL UDC 10 GM PO ×2 (08:03→21:42)
--- NOTE | 2019-12-26 08:18 | P.PN_ITS ---
Subjective Subjective: Interval history: She appears to be extremely hard of hearing. She is awake, alert, making eye contact, but appears cannot hear any questions or commands. Vitals/I&O/Wt Last Vital Signs Temp 98.8 F 12/26/19 06:00 Pulse 80 12/26/19 08:03 Resp 16 12/26/19 08:03 BP 154/70 12/26/19 06:00 Pulse Ox 96 12/26/19 08:03 12/25/19 12/26/19 12/26/19 22:59 06:59 14:59 Intake Total 980.166 / 1080.166 253.833 / 1333.999 Output Total 523 / 810 375 / 1185 Balance 457.166 / 270.166 -121.167 / 148.999 Weight last 48 hrs Weight 108.227 kg Weight 112.854 kg Physical Exam Const: COMMON NORMALS: no acute distress and patient oriented x3 OTHER: Intubated. Alert. Not in discomfort. HENMT: COMMON NORMALS: oropharynx normal Neck/C-Spine: COMMON NORMALS: no JVD Resp: COMMON NORMALS: normal respiratory effort and clear to auscultation bilaterally AUSCULTATION: clear to auscultation bilaterally Cardio: COMMON NORMALS: no JVD, regular rhythm, S1 normal heart sound present, S2 normal heart sound present and No murmurs present (Cardio) RHYTHM: regular rhythm HEART SOUNDS: S1 normal heart sound present and S2 normal heart sound present GI: COMMON NORMALS: Normal to inspection, nondistended, normoactive bowel sounds present, Soft to palpation and non-tender PALPATION: Yes Soft to palpation OTHER: Appears to grimace somewhat on deeper palpation of the abdomen Extremity: COMMON NORMALS: no joint enlargement and no pedal edema OTHER: 1+ leg edema. 3+ UE edema bilatearlly Neuro: COMMON NORMALS: patient oriented x3 and moves all extremities Skin: COMMON NORMALS: no rashes or lesions noted GENERAL SKIN EXAM: no rashes or lesions noted Urinary Catheter Management^: Boss: Cath Placed During This Visit: yes Reason for Continuing Indwelling Catheter: Accurate Measurement of Urinary Output in Critically Ill Patients Urinary Catheter Date of Insertion: 12/19/19 Urinary Catheter Time of Insertion: 14:00 Data : 12/26/19 03:11 12/26/19 03:11 A&P Assessment and plan (1) Encephalopathy: She is awake and alert. Difficult to electroencephalograph technician anything about cognitive function as it appears she is extremely hard of hearing. Does not appear to be able to hear any questions or commands. Per discussion with RN daughter has been asked to bring in hearing aids to allow for communication. Noncontrast CT head without acute abnormality. She has perhaps some mild memory issues occasionally, daughter denies dementia. Small dose of fentanyl, although overall is much more alert. Discussed with daughter given age, critical illness, we may expect some delirium. Encephalopathy may be secondary to sepsis/infection, possibly metabolic derangements with renal failure, but also cannot entirely exclude other causes, possibly stroke with some right-sided weakness. We will continue to attempt to wean sedation as tolerating, reassess her progress. Status: Acute (2) Acute respiratory failure: Continue treatment for pneumonia. Has had some persistent pneumonia on imaging. With some improvement today perhaps. Noted to have some thick sputum yesterday. Continue pulmonary toilet. If difficulty weaning, could consider bronchoscopic evaluation. HD For now continue cefepime, doxycycline, Flagyl. MRSA PCR negative. Vancomycin discontinued. Levaquin discontinued. Sputum culture with upper respiratory rajesh. Urine bacterial antigens negative. Status: Acute (3) Pneumonia: Multilobar pneumonia. Persistent pneumonia right middle lobe on chest x-ray. Recurrent fever resolved. Cefepime. Vancomycin stopped. Levaquin stopped. Flagyl was added previously for significant secretions. She was also placed on doxycycline 1 day following admission secondary to history of tick exposure Sputum culture with only upper respiratory rajesh. Urine bacterial antigens negative. COVID retested, negative. With recurrent fever consider bacteremia, but blood cultures repeatedly nega tive. TTE difficult study, probably normal EF, pulm HTN. Pacemaker site without concerns outwardly. Soft tissue US performed with small ovoid collection of fluid at the inferior aspect of the insertion site measuring 1.0 x 0.7 x 0.7 CM. No drainable abscess. Status: Acute Qualifiers: Pneumonia type: due to unspecified organism Laterality: bilateral Lung location: lower lobe of lung Qualified Code(s): J18.9 - Pneumonia, unspecified organism (4) Acute kidney injury: Urine output improving. Now likely ATN. By Feure[place] appeared to be prerenal initially. Blood pressures have been improving. Bicarbonate was discontinued. Continue to support blood pressure. No hydronephrosis on renal ultrasound. Discussed with nephrology, appreciate recommendations on reassessment with regards to hemodialysis, in which case we will need access, if can tolerate hemodialysis here, versus CRRT for which would require transfer to outside facility. Licensed Marine Engineer will get back to me or surgeon with regards to need for access. CK with some elevation, has been gradually decreasing. At home appears was taking naproxen, lisinopril. Concern for also contrast- induced nephropathy with recent CTA. Status: Acute (5) Sepsis: Improving. Hypotension resolved. Will wean down stress dose steroids. Leukocytosis resolved. Continue antibiotics. If able to obtain peripheral IV will DC R femoral central line. Otherwise may need PICC line. Monitor for improvement in renal function. For now still on PEEP of 10, FiO2 50%. Is fluid overloaded. Appears to be w 11 kg over her admission weight. May benefit from additional hemodialysis, although urine output is improving. DC IV fluid. Attempt to wean ventilatory support as tolerating. PT assessment. Abdomen is somewhat tender. Belly is soft. Lactic acid did improve since admission. Suspicion for focal bowel ischemia would be low per obstetrics nurse, she may have had some global hypoperfusion. On CT air distended sigmoid colon no evidence of obstruction. She is producing some stool which is liquid. C. difficile negative. No hydronephrosis. Feeds had to be held. Perhaps some ileus, possibly after low-flow state. Suspicion also of tickborne illness. Continue doxycycline empirically. Tick panel negative. Thrombocytopenia, elevation of liver function parameters which have been improving. Mild hyponatremia. Peripheral smear with suspected infectious etiology of thrombocytopenia. No blasts. Few if any schistocytes. Status: Acute (6) Hypotension: Resolved. Improved. Has been off pressor since 12/23 morning. Will reduce hydrocortisone dose to 25 mg q12. Status: Acute (7) Elevated troponin: Type II. No evidence of acute myocardial infarction Status: Acute (8) Thrombocytopenia: Stabilized. Low in 60s. Heparin products had been held. Negative tick [place]. Continue doxy for PNA as above. Peripheral smear without blasts, few if any schistocytes per discussion with pathologist. Leukocytosis. Thrombocytopenia is suggested perhaps secondary to acute infection, sepsis. Liver dysfunction. Pantoprazole, cefepime were started after thrombocytopenia was worsening, so not likely contributed. Status: Acute Additional A&P Information Metabolic acidosis. Improved. Transaminitis. Improving. Unremarkable hepatitis panel. Has not had any abdominal discomfort. Development of this is likely secondary to sepsis. Heterogenous liver. Suspect injury secondary to hypotension, sepsis, possibly tick-borne illness. History of tick bites. Doxycycline. Note that she has become leukopenic as well as thrombocytopenic which could be indicative of tickborne disease although sepsis from pneumonia is also possible. Less likely with tick panel negative serology for acute Lyme, Ehrlichia, Rickettsia History of CHF. Limited visualization of LV on echocardiogram. Possibly normal EF. Diastolic dysfunction. Moderate pulmonary hypertension. Small pericardial effusion. History of COPD. Continue nebs History of coronary artery disease. Asymptomatic. Hypertension. Hypotension resolved. Wean down stress steroids. Multiple other medical problems as listed in her past medical history Attestations Medical Necessity Statement*: Continue admission to wean off ventilatory support, treat PNA, fluid overload, ANAHY Coding Level of Care Code Acute Multimedia Editor for [facility] [place] Diagnoses Encephalopathy G93.40 Acute respiratory failure J96.00 Pneumonia J18.9 Pneumonia type: due to unspecified organism Laterality: bilateral Lung location: lower lobe of lung Acute kidney injury N17.9 Sepsis A41.9 Hypotension I95.9 Elevated troponin R79.89 Thrombocytopenia D69.6
--- NOTE | 2019-12-26 08:37 | USR_ITS ---
PROCEDURE INFORMATION: Exam: US Duplex Upper Extremity Veins Exam date and time: 12/26/2019 11:34 AM Age: 84 years old Clinical indication: Swelling (edema) of limb; Upper extremity, bilateral TECHNIQUE: Imaging protocol: Real-time Duplex ultrasound of the Upper Extremities with 2-D ocon[place] scale, color Doppler flow and spectral waveform analysis with image documentation. Complete exam focused on the bilateral upper extremity veins. COMPARISON: No relevant prior studies available. FINDINGS: Right deep veins: No deep venous thrombosis in the visualized right subclavian, axillary, brachial, radial, or ulnar veins. Nonvisualization of the right internal jugular vein. Right superficial veins: Visualized cephalic and basilic veins are patent without thrombus. Left deep veins: No deep venous thrombosis in the visualized left internal jugular, subclavian, axillary, brachial, radial, or ulnar veins. Left superficial veins: Visualized cephalic and basilic veins are patent without thrombus. Soft tissues: Unremarkable. US/[place] [id number] IMPRESSION: No deep venous thrombosis in the visualized bilateral upper extremities.
--- NOTE | 2019-12-26 10:38 | PM.PN ---
Subjective Subjective: Interval history: Patient has hearing difficulty but follows commands appropriately Removed her 1.5 L fluid yesterday Off pressors renal functions improving, no plan for dialysis today, patient making good urine output We will plan to extubate to BiPAP if she succeeds weaning trial today Medications: Reviewed: Yes Vitals/I&O/Wt Last Vital Signs Temp 98.8 F 12/26/19 06:00 Pulse 80 12/26/19 08:03 Resp 14 12/26/19 08:26 BP 154/77 12/26/19 08:00 Pulse Ox 96 12/26/19 08:03 12/25/19 12/26/19 12/26/19 22:59 06:59 14:59 Intake Total 980.166 / 1080.166 253.833 / 1333.999 120 / 120 Output Total 523 / 810 375 / 1185 Balance 457.166 / 270.166 -121.167 / 148.999 120 / 120 Weight last 48 hrs Weight 238 lb 9.6 oz Weight 248 lb 12.8 oz Physical Exam Narrative: EXAM NARRATIVE: PHYSICAL EXAM: General: lying in bed, sedated and intubated. 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 transplanted heart: unspecified whether [place] or transplanted heart Qualified Code(s): I25.119 - Atherosclerotic heart disease of [place] coronary artery with unspecified angina pectoris (3) Acute kidney injury: Status: Acute (4) Pneumonia: Status: Acute Qualifiers: Pneumonia type: due to unspecified organism Laterality: bilateral Lung location: lower lobe of lung Qualified Code(s): J18.9 - Pneumonia, unspecified organism (5) Septic shock: Status: Acute Overall: 84-year-old female admitted to ICU for acute respiratory failure and hemodynamic instability likely in septic shock with ANAHY. NEURO: Significant weakness, opens eyes and follows commands CT head 828 negative for any acute changes Also family mentioned patient has hearing problem PULM: #Acute respiratory failure likely secondary to pneumonia #Questionable history of COPD On mechanical ventilation VC mode 450 TV/respiratory rate 14/FiO2 50%/PEEP 6 ABG today morning on 50% FiO2: 7.4 / Patient received antibiotics for about 7 days and all cultures negative -my Continue DuoNeb nebulizations every 4 hours -Please take off sedation, do weaning trial and if succeeds then extubate to BiPAP CVS: #Shock likely due to sepsis-resolved Currently off vasopressors; tapering doses of steroids-can DC Try to keep map above 65 Lactic acid improving-2.6 Echo 12/22/2019: Technically difficult study but grossly LV appear normal, diastolic dysfunction noted and moderate pulmonary hypertension with small pericardial effusion #Recent pacemaker placement Pacemaker insertion site no signs of infection noted GI: #Elevated LFTs likely due to hypotension - improving #Abdominal distention likely due to ileus secondary to pressors, opiates -N.p.o. for now in view of extubation: - CT abdomen: A distended sigmoid colon but otherwise no small or large bowel obstruction. normal gallbladder -Add gentle bowel regimen-senna docusate at night/lactulose 15 twice daily - Monitor rectal tube output - Avoid hepatotoxic medications and monitor LFTs and CK RENAL: #ANAHY over? CKD secondary to septic shock/rhabdomyolysi/contrast-induced -Received dialysis on 12/24/2019 and 12/25/2019 and 828 -Monitor electrolytes and supplement accordingly -DC IV fluids if develops signs of fluid overload -Renal follow-up HEM: #Leukocytosis likely due to pneumonia/steroids COVID antigen and PCR both negative tick panel pending-can continue doxy Patient received antibiotics for about 7 days and all cultures negative - can DC cefepime Flagyl #Thrombocytopenia-improving no signs of bleeding Monitor platelets DVT prophylaxis Heparin for DVT prophylaxis is held due to thrombocytopenia-currently on SCDs ENDO: Monitor sugars and place on scale coverage to target sugars below 200 ID: #Septic shock likely secondary to pneumonia-shock resolved Off pressors, reducing requirement of steroids COVID antigen and PCR both negative tick panel Rickettsia IgG antibodies positive IgM not detected- can continue doxy Patient received antibiotics for about 7 days and all cultures negative - can DC cefepime Flagyl Monitor WBC and fevers Case discussed with RN, and Dr. Guzman hospitalist Overall impression: Patient is clinically improving, off pressors, cultures negative so far, tick panel Rickettsia IgG positive and recommended to continue doxy, renal parameters improving on dialysis, patient also making good amount of urine, will try weaning trial today and if succeeds will extubate her to BiPAP. Attestations Medical Necessity Statement*: Acute respiratory failure with septic shock currently still intubated-evaluating for possible extubation today Time Spent in Patient Care: 16 - 35 minutes (>than 50% of time spent in counselling and/or direct pt care on unit). Coding Level of Care Code Established Pt Acute Ferruler for [facility] Patient Type Established Diagnoses Thrombocytopenia D69.6 Coronary artery disease I25.119 Associated angina: with unspecified angina Coronary Disease-Associated Artery/Lesion type: unspecified vessel or lesion type [place] vs. transplanted heart: unspecified whether [place] or transplanted heart Acute kidney injury N17.9 Pneumonia J18.9 Pneumonia type: due to unspecified organism Laterality: bilateral Lung location: lower lobe of lung Septic shock A41.9; R65.21 Time Spent (min) 33
--- NOTE | 2019-12-26 10:52 | PM.PN ---
Subjective Subjective: Interval history: will be extubated today Medications: Reviewed: Yes Vitals/I&O/Wt Last Vital Signs Temp 98.8 F 12/26/19 06:00 Pulse 80 12/26/19 08:03 Resp 14 12/26/19 08:26 BP 154/77 12/26/19 08:00 Pulse Ox 96 12/26/19 08:03 12/25/19 12/26/19 12/26/19 22:59 06:59 14:59 Intake Total 980.166 / 1080.166 253.833 / 1333.999 120 / 120 Output Total 523 / 810 375 / 1185 Balance 457.166 / 270.166 -121.167 / 148.999 120 / 120 Weight last 48 hrs Weight 108.227 kg Weight 112.854 kg Physical Exam Const: COMMON NORMALS: no acute distress ORIENTATION/CONSCIOUSNESS: Yes awake Urinary Catheter Management^: Boss: Cath Placed During This Visit: yes Reason for Continuing Indwelling Catheter: Accurate Measurement of Urinary Output in Critically Ill Patients Urinary Catheter Date of Insertion: 12/19/19 Urinary Catheter Time of Insertion: 14:00 Data : 12/26/19 03:11 12/26/19 03:11 Micro: Microbiology 12/21/19 10:35 Blood Culture - Final Blood NO GROWTH AFTER 5 DAYS 12/21/19 10:15 Blood Culture - Final Blood NO GROWTH AFTER 5 DAYS A&P Additional A&P Information Impression: 1. Acute kidney injury, due to sepsis, contrast, mild rhabdomyolysis. Received dialysis and Saturday 2. Hypervolemic hyponatremia - resolved 3. Metabolic acidosis resolved 4. Anemia Recommendation: No need for dialysis today. Will reassess tomorrow. Attestations Medical Necessity Statement*: remains in ICU Time Spent in Patient Care: 16 - 35 minutes Coding Level of Care Code Acute Job Developer For Deaf Adults for Placido Dominguez
[2019-12-26 11:29] LABS: Glucose Point of Care 108 mg/dL (70-110)
[2019-12-26] MEDS: doxycycline 100 MG in sodium chloride 0.9% (plus) 100 ML IV ×2 (12:31→22:03)
[2019-12-26] MEDS: hydrocortisone 100 mg/2 mL SDV 25 MG IVP ×2 (12:38→21:49)
[2019-12-26 18:23] LABS: Glucose Point of Care 111 mg/dL (70-110)
--- NOTE | 2019-12-26 21:49 | PC.NURSE ---
Nursing Dysphagia screen Off bipap and placed on 6L NC per RT. Pt awake and oriented to person and place. Dysphagia screen competed with 3oz of water. No coughing, clearing or difficulty swallowing observed. Oral lactulose given without difficulty.
[2019-12-27] VITALS (20 sets, daily range): BP systolic 119–146; BP diastolic 56–81; PULSE 66–86; RESP 8–27; TEMP 36.4–37.3; O2SAT 93–99
[2019-12-27] MEDS: cefepime 1,000 MG in sodium chloride 0.9% (plus) 50 ML 100 MG IV (00:02)
[2019-12-27 04:18] LABS: Basophils % 0.4 %; Eosinophils % 0.1 %; Hematocrit 28.2 % (37.0-47.0); Hemoglobin 8.9 g/dL (11.5-15.3); Lymphocytes # 0.7 10^3/uL (0.8-4.8); Lymphocytes % 6.8 %; Mean Corpuscular HGB Conc 31.6 g/dL (30.0-36.0); Mean Corpuscular Hemoglobin 27.6 pg (28.0-34.0); Mean Corpuscular Volume 87.6 fL (81-99); Monocytes # 1.2 10^3/uL (0.2-0.9); Monocytes % 11.1 %; Neutrophils # 8.61 10^3/uL (1.8-7.7); Neutrophils % 80.2 %; Nucleated Red Blood Cells % 0.3 %; Platelet Count 66 10^3/cmm (130-400); Red Blood Count 3.22 10^6/uL (4.1-5.3); Red Cell Distribution Width 17.5 % (12.1-15.1); White Blood Count 10.7 10^3/uL (4.0-10.0)
[2019-12-27 04:41] LABS: Alanine Aminotransferase 51 U/L (0-33); Albumin Level 2.7 g/dL (3.5-5.2); Alkaline Phosphatase 72 IU/L (35-105); Anion Gap 13.8 (5-19); Aspartate Amino Transferase 34 U/L (0-32); Blood Urea Nitrogen 58 mg/dL (8-23); Calcium 7.6 mg/dL (8.5-10.5); Carbon Dioxide 26 mmol/L (22-29); Chloride 102 mmol/L (98-107); Globulin 2.6 g/dL (1.3-4.6); Glucose 139 mg/dL (65-115); Osmolality Calculated 287 mOsm/kg (285-295); Potassium 3.8 mmol/L (3.5-5.1); Sodium 138 mmol/L (136-145); Total Bilirubin 0.7 mg/dL (0.15-1.2); Total Protein 5.3 g/dL (6.6-8.7)
[2019-12-27 06:12] LABS: Glucose Point of Care 131 mg/dL (70-110)
[2019-12-27] MEDS: metroNIDAZOLE IV 500 MG/100 ML PREMIX 100 MG IV ×3 (06:18→23:31)
[2019-12-27] MEDS: lactulose oral liq 20 gm/30 mL UDC 10 GM PO ×2 (08:01→19:29)
[2019-12-27] MEDS: pantoprazole 40 mg SDV IVP ×2 (08:01→19:28)
--- NOTE | 2019-12-27 08:24 | P.PN_ITS ---
Subjective Subjective: Interval history: screaming, confused. dec sob, less swollen, still w/ palps. poor appetite Medications: Reviewed: Yes Medication Review Details: Current Medications Acetaminophen (Tylenol) 650 mg PO Q6H PRN PRN Reason: Mild/Mod Pain Or Temp >/= 101 Last Admin: 12/21/19 14:05 Dose: 650 mg Documented by: Albuterol/Ipratropium (Duoneb) 3 ml INHALATION Q4H.RESPIRATORY OPAL Last Admin: 12/27/19 02:30 Dose: Not Given Documented by: Hydrocortisone Sodium Succinate (Solu-Cortef Inj) 25 mg IVP Q12H OPAL Last Admin: 12/26/19 21:49 Dose: 25 mg Documented by: Metronidazole (Flagyl Iv) 500 mg in 100 mls @ 100 mls/hr IV Q8H OPAL; Protocol Last Infusion: 12/27/19 07:20 Dose: Infused Documented by: Doxycycline Hyclate 100 mg/ (Sodium Chloride) 100 mls @ 100 mls/hr IV Q12H OPAL; Protocol Last Infusion: 12/27/19 00:02 Dose: Infused Documented by: Propofol (Diprivan) 1,000 mg in 100 mls @ 0 mls/hr IV .Q0M OPAL; Protocol Last Titration: 12/26/19 07:35 Dose: Infused Documented by: Norepinephrine Bitartrate 8 mg (/ Dextrose) 508 mls @ 0 mls/hr IV .Q0M OPAL; Protocol Last Titration: 12/25/19 03:26 Dose: 0 mcg/min, 0 mls/hr Documented by: Fentanyl 1,000 mcg/ Sodium (Chloride) 100 mls @ 0 mls/hr IV .Q0M OPAL; Protocol Last Titration: 12/26/19 16:00 Dose: Infused Documented by: Cefepime HCl 1,000 mg/ Sodium (Chloride) 50 mls @ 100 mls/hr IV Q24H OPAL; Protocol Last Infusion: 12/27/19 07:20 Dose: Infused Documented by: Albumin Human (Albumin) 12.5 gm in 50 mls @ 60 mls/hr IV PRN PRN PRN Reason: Hypotension and/or symptomatic Sodium Chloride (Sodium Chloride 0.9%) 1,000 mls @ 0 mls/hr IV .Q0M PRN PRN Reason: hypotension or symptomatic Albumin Human (Albumin) 12.5 gm in 50 mls @ 60 mls/hr IV PRN PRN PRN Reason: Hypotension and/or symptomatic Lactulose (Constulose) 10 gm PO Q12H [facility] Last Admin: 12/27/19 08:01 Dose: 10 gm Documented by: Ondansetron HCl (Zofran) 4 mg IVP Q6H PRN PRN Reason: vomiting, or N/V if npo Pantoprazole Sodium (Protonix) 40 mg IVP Q12H [facility] Last Admin: 12/27/19 08:01 Dose: 40 mg Documented by: Senna/Docusate Sodium (Senna-S) 1 tab PO BID [facility] Last Admin: 12/27/19 08:03 Dose: Not Given Documented by: Vitals/I&O/Wt Last Vital Signs Temp 99.1 F 12/27/19 06:00 Pulse 70 12/27/19 06:00 Resp 24 H 12/27/19 06:00 BP 119/56 12/27/19 06:00 Pulse Ox 94 12/27/19 06:00 12/26/19 12/27/19 12/27/19 22:59 06:59 14:59 Intake Total 100 / 909.180 300 / 1209.180 150 / 150 Output Total 690 / 690 525 / 1215 Balance -590 / 219.180 -225 / -5.820 150 / 150 Weight last 48 hrs Weight 107.501 kg Weight 108.227 kg Physical Exam Narrative: EXAM NARRATIVE: telemedicine exam performed by RN obese in bed on heent- nca/t, eomi neck supple lungs wheezes and crackles heart irreg and soft, nt, nd, +BX ext 1+ edema neuro- a,a, o x 1+ Urinary Catheter Management^: Boss: Cath Placed During This Visit: yes Reason for Continuing Indwelling Catheter: Accurate Measurement of Urinary Output in Critically Ill Patients Urinary Catheter Date of Insertion: 12/19/19 Urinary Catheter Time of Insertion: 14:00 Data : 12/27/19 03:45 12/27/19 03:45 Micro: Microbiology 12/21/19 10:35 Blood Culture - Final Blood NO GROWTH AFTER 5 DAYS 12/21/19 10:15 Blood Culture - Final Blood NO GROWTH AFTER 5 DAYS A&P Additional A&P Information Impression: 1. Acute kidney injury, due to sepsis, contrast, mild rhabdomyolysis. Received dialysis and Saturday- monitor for renal recovery. -k okay, non-oliguric - ANAHY from [facility]. presented w/ sepstic shock that is improving 2. thrombocytopenia -monitor plts, appear stable 3. PNA- renal dsoe abx 4. Anemia 5. Presumed underlying COPD per Pulm 6. AMS- monitor for improvement as infection, liver failure, and ANAHY are improving 7. diastolic dysfunction w/ normal LVEF on echo meds reviewed Attestations Medical Necessity Statement*: anahy, pna, ams Time Spent in Patient Care: 16 - 35 minutes Coding Level of Care Code Acute Web Editor for Placido Dominguez
[2019-12-27] MEDS: ipratropium-albuterol 3 mL Neb INHALATION ×5 (08:31→20:10)
--- NOTE | 2019-12-27 09:35 | P.PN_ITS ---
Subjective Subjective: Interval history: She had a restless night, was somewhat confused reported to be vocalizing. This morning she is alert, initially states she is having some pain, but cannot really define where. Knows she is in [facility]. Cannot tell the year. Vitals/I&O/Wt Last Vital Signs Temp 99.1 F 12/27/19 06:00 Pulse 78 12/27/19 08:35 Resp 21 H 12/27/19 08:35 BP 119/56 12/27/19 06:00 Pulse Ox 97 12/27/19 08:35 12/26/19 12/27/19 12/27/19 22:59 06:59 14:59 Intake Total 100 / 909.180 300 / 1209.180 150 / 150 Output Total 690 / 690 525 / 1215 Balance -590 / 219.180 -225 / -5.820 150 / 150 Weight last 48 hrs Weight 107.501 kg Weight 108.227 kg Physical Exam Const: COMMON NORMALS: no acute distress and patient oriented x3 OTHER: Alert. Not in discomfort. Mildly confused. HENMT: COMMON NORMALS: oropharynx normal Neck/C-Spine: COMMON NORMALS: no JVD Resp: COMMON NORMALS: normal respiratory effort and clear to auscultation bilaterally AUSCULTATION: clear to auscultation bilaterally and rhonchi (few) Cardio: COMMON NORMALS: no JVD, regular rhythm, S1 normal heart sound present, S2 normal heart sound present and No murmurs present (Cardio) RHYTHM: regular rhythm HEART SOUNDS: S1 normal heart sound present and S2 normal heart sound present GI: COMMON NORMALS: Normal to inspection, nondistended, normoactive bowel sounds present, Soft to palpation and non-tender PALPATION: Yes Soft to palpation OTHER: No pain on abdominal palpation. Extremity: COMMON NORMALS: no joint enlargement and no pedal edema OTHER: 1+ leg edema. 3+ UE edema bilatearlly, with some improvement. Neuro: COMMON NORMALS: patient oriented x3 and moves all extremities Skin: COMMON NORMALS: no rashes or lesions noted GENERAL SKIN EXAM: no rashes or lesions noted Urinary Catheter Management^: Boss: Cath Placed During This Visit: yes Reason for Continuing Indwelling Catheter: Accurate Measurement of Urinary Output in Critically Ill Patients Urinary Catheter Date of Insertion: 12/19/19 Urinary Catheter Time of Insertion: 14:00 Data : 12/27/19 03:45 12/27/19 03:45 Micro: Microbiology 12/21/19 10:35 Blood Culture - Final Blood NO GROWTH AFTER 5 DAYS 12/21/19 10:15 Blood Culture - Final Blood NO GROWTH AFTER 5 DAYS A&P Assessment and plan (1) Encephalopathy: She is a bit confused this morning. Reportedly had a restless night, did not sleep at all. Occasional vocalizations. This morning she knows she is at [facility]. Cannot state the year. Initially states she is in pain, but cannot say where. Asking about pain in multiple different locations states no to each. Suspect critical illness delirium, possibly ICU delirium. Has been off of several medications from home which may be contributing. Continue to reorient. Supportive care. Mobilize. Noncontrast CT head without acute abnormality. She has perhaps some mild memory issues occasionally, daughter denies dementia. Has been extubated and weaned off sedation. Status: Acute (2) Acute respiratory failure: Extubated. On BiPAP support overnight. Previously on 6 L nasal cannula. Wean off BiPAP as tolerating. Wean down oxygen as tolerated. If continues to improve, consider de-escalating antibiotics. HD per nephro For now continue cefepime, doxycycline, Flagyl. MRSA PCR negative. Vancomycin discontinued. Levaquin discontinued. Sputum culture with upper respiratory rajesh. Urine bacterial antigens negative. Status: Acute (3) Pneumonia: Multilobar pneumonia. Gradually improving. Recurrent fever resolved. Cefepime. Vancomycin stopped. Levaquin stopped. Flagyl was added previously for significant secretions. She was also placed on doxycycline 1 day following admission secondary to history of tick exposure Sputum culture with only upper respiratory rajesh. Urine bacterial antigens negative. COVID retested, negative. With recurrent fever consider bacteremia, but blood cultures repeatedly negative. TTE difficult study, probably normal EF, pulm HTN. Pacemaker site without concerns outwardly. Soft tissue US performed with small ovoid collection of fluid at the inferior aspect of the insertion site measuring 1.0 x 0.7 x 0.7 CM. No drainable abscess. Status: Acute Qualifiers: Pneumonia type: due to unspecified organism Laterality: bilateral Lung location: lower lobe of lung Qualified Code(s): J18.9 - Pneumonia, unspecified organism (4) Acute kidney injury: Urine output improving. Continue to support blood pressure. No hydronephrosis on renal ultrasound. Recheck CK At home appears was taking naproxen, lisinopril. Concern for also contrast- induced nephropathy with recent CTA. Status: Acute (5) Sepsis: Resolved. Will wean down stress dose steroids. Leukocytosis resolved. Continue antibiotics. DC R femoral central line. PT assessment. Mobilize. For now still requiring quite a bit of care so maintain in ICU, but may be able to transfer soon. Continues to have diarrhea. C. difficile negative. Abdomen is nontender on exam today. Maintain rectal tube in place for now. If starts improving, or starts becoming more mobile removed to prevent pressure injury. Abdomen is currently nontender. Soft. Lactic acid did improve since admission. Suspicion for focal bowel ischemia would be low per petal shaper hand, she may have had some global hypoperfusion. On CT air distended sigmoid colon no evidence of obstruction. She is producing some stool which is liquid. C. difficile negative. No hydronephrosis. Discussion with petal shaper hand can gradually increase feeding. Will get speech therapy evaluation due to high risk of aspiration. Suspicion also of tickborne illness. Continue doxycycline empirically. Tick panel negative -Rickettsia IgG is positive, unclear significance, perhaps indicating past infection. I doubt this is related to current condition as had no rash, which would be expected in almost all patients, but otherwise may develop IgG in 1-2 weeks of illness. For now continue Doxy. Thrombocytopenia, elevation of liver function parameters which have been improving. Mild hyponatremia resolved. Peripheral smear with suspected infectious etiology of thrombocytopenia. No blasts. Few if any schistocytes. Status: Acute (6) Hypotension: Resolved. Will reduce hydrocortisone dose to 12.5 mg q12. Status: Acute (7) Elevated troponin: Type II. No evidence of acute myocardial infarction Status: Acute (8) Thrombocytopenia: Stabilized. Low in 60s. Heparin products had been held. Negative tick panel. Continue doxy for PNA as above. Peripheral smear without blasts, few if any schistocytes per discussion with pathologist. Leukocytosis. Thrombocytopenia is suggested perhaps secondary to acute infection, sepsis. Liver dysfunction. Pantoprazole, cefepime were started after thrombocytopenia was worsening, so not likely contributed. Status: Acute (9) Paroxysmal A-fib: Small atrial fibrillation with no history. Currently with slow ventricular response. Monitor rates, if increasing will add diltiazem which she takes at home if blood pressure will allow. Currently with thrombocytopenia not a candidate for anticoagulation, if this should improve, may be considered at that time. Status: Acute Additional A&P Information Metabolic acidosis. Improved. Transaminitis. Improving. Unremarkable hepatitis panel. Has not had any abdominal discomfort. Development of this is likely secondary to sepsis. Heterogenous liver. Suspect injury secondary to hypotension, sepsis, possibly tick-borne illness. History of tick bites. Doxycycline. Note that she has become leukopenic as well as thrombocytopenic which could be indicative of tickborne disease although sepsis from pneumonia is also possible. Less likely with tick panel negative serology for acute Lyme, Ehrlichia, Rickettsia IgG is positive, unclear significance, perhaps indicating past infection. I doubt this is related to current condition as had no rash, which would be expected in almost all patients, but otherwise may develop IgG in 1-2 weeks of illness. For now continue Doxy. History of CHF. Limited visualization of LV on echocardiogram. Possibly normal EF. Diastolic dysfunction. Moderate pulmonary hypertension. Small pericardial effusion. History of COPD. Continue nebs History of coronary artery disease. Asymptomatic. Hypertension. Hypotension resolved. Wean down stress steroids. Multiple other medical problems as listed in her past medical history Attestations Medical Necessity Statement*: Continue admission for assessment and management of respiratory failure, pneumonia, fluid overload with acute kidney injury, acute encephalopathy. Coding Level of Care Code Acute Civil Engineer'S Aide for [facility] Diagnoses Encephalopathy G93.40 Acute respiratory failure J96.00 Pneumonia J18.9 Pneumonia type: due to unspecified organism Laterality: bilateral Lung location: lower lobe of lung Acute kidney injury N17.9 Sepsis A41.9 Hypotension I95.9 Elevated troponin R79.89 Thrombocytopenia D69.6 Paroxysmal A-fib I48.0
--- NOTE | 2019-12-27 09:55 | PC.SOCIAL ---
IMM Updated Page 2 of IMM updated and given to patient. Initialed, dated, and timed and placed back in chart.
[2019-12-27] MEDS: doxycycline 100 MG in sodium chloride 0.9% (plus) 100 ML IV ×2 (10:46→23:31)
[2019-12-27] MEDS: hydrocortisone 100 mg/2 mL SDV 12.5 MG IVP ×2 (10:51→21:04)
--- NOTE | 2019-12-27 11:10 | PC.NURSE ---
RIGHT FEMORAL LINE REMOVED, TOLERATED WELL. MANUAL PRESSURE HELD UNTIL HEMOSTASIS OBTAINED. SITE COVERED WITH 2X2 & TEGADERM. RECTAL TUBE CONTINUES TO DRAIN, MINOR DRAINING TO GRAVITY. PULLS AT BIPAP MASK, REMOVES IT FREQUENTLY. ATTEMPTS MADE TO REDIRECT PT TO LEAVE MASK ON. 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 GET ME OUT OF HERE. LIGHTS ON/BLINDS UP TO HELP ORIENT PT TO DAY/NIGHT HOURS.
--- NOTE | 2019-12-27 15:03 | PC.NURSE ---
ASSISTED PHYSICAL THERAPY WITH SITTING PT UP ON EDGE OF BED. REQUIRED MODERATE ASSIST TO JUST SIT UP ON BED. CONTINUES YELL OUT HELP ME BUT UNABLE TO ELABORATE ON WHAT SHE NEEDS HELP WITH. REPEATEDLY SAYS, JUST LET ME
[2019-12-27 17:40] LABS: Glucose Point of Care 109 mg/dL (70-110)
[2019-12-27 18:39] LABS: Glucose Point of Care 116 mg/dL (70-110)
--- NOTE | 2019-12-27 18:54 | PC.NURSE ---
DR STAPLES NOTIFIED THAT PT/DAUGHTER WISHED TO NOT HAVE ANY MORE AGGRESSIVE PROCEDURES DONE. HE CAME & SPOKE W/ THEM REGARDING CODE STATUS. PT SHOOK HEAD YES/NO FOR THE QUESTIONS HE ASKED REGARDING INTUBATION/CHEST COMPRESSIONS. SPEECH THERAPY EVAL PT, SOFT DIET WITH REGULAR FLUIDS.
--- NOTE | 2019-12-27 19:00 | PC.NURSE ---
Report received, care assumed. Monitor alarms, plan of care et previous orders reviewed. Please see physical assessment et vital sign flowsheet for details.
--- NOTE | 2019-12-27 20:00 | PC.NURSE ---
Patient's daughter, Kim Stinson, called to check on patient. Updated on patient's condition et answered all her questions. Told her to feel free to call should she have any additional questions or concerns. Will continue to monitor.
[2019-12-27 21:26] LABS: Glucose Point of Care 115 mg/dL (70-110)
[2019-12-28] VITALS (25 sets, daily range): BP systolic 112–191; BP diastolic 57–107; PULSE 67–95; RESP 13–31; TEMP 36.4–36.9; O2SAT 91–97
[2019-12-28] MEDS: cefepime 1,000 MG in sodium chloride 0.9% (plus) 50 ML 100 MG IV (00:26)
[2019-12-28 01:21] LABS: Glucose Point of Care 123 mg/dL (70-110)
[2019-12-28] MEDS: ipratropium-albuterol 3 mL Neb INHALATION ×3 (02:40→07:54)
[2019-12-28 03:46] LABS: Alanine Aminotransferase 42 U/L (0-33); Albumin Level 2.8 g/dL (3.5-5.2); Alkaline Phosphatase 81 IU/L (35-105); Anion Gap 15.8 (5-19); Aspartate Amino Transferase 29 U/L (0-32); Blood Urea Nitrogen 64 mg/dL (8-23); Calcium 8.5 mg/dL (8.5-10.5); Carbon Dioxide 26 mmol/L (22-29); Chloride 105 mmol/L (98-107); Creatine Phosphokinase 202 U/L (26-192); Globulin 2.7 g/dL (1.3-4.6); Glucose 116 mg/dL (65-115); Magnesium 2.5 mg/dL (1.7-2.3); Osmolality Calculated 296 mOsm/kg (285-295); Phosphorus 5.1 mg/dL (2.5-4.5); Potassium 3.8 mmol/L (3.5-5.1); Sodium 143 mmol/L (136-145); Total Bilirubin 0.7 mg/dL (0.15-1.2); Total Protein 5.5 g/dL (6.6-8.7)
[2019-12-28 06:31] LABS: Glucose Point of Care 109 mg/dL (70-110)
--- NOTE | 2019-12-28 06:52 | PC.NURSE ---
Report given to Carlyn BLANDON.
[2019-12-28 07:50] LABS: Glucose Point of Care 116 mg/dL (70-110)
[2019-12-28] MEDS: lactulose oral liq 20 gm/30 mL UDC 10 GM PO ×2 (08:03→20:25)
[2019-12-28] MEDS: pantoprazole 40 mg SDV IVP ×2 (08:05→20:25)
[2019-12-28] MEDS: metroNIDAZOLE IV 500 MG/100 ML PREMIX 100 MG IV ×2 (08:05→17:21)
--- NOTE | 2019-12-28 09:00 | PM.PN ---
Subjective Subjective: Interval history: extubated, awake, confused, not answering most questions. Medications: Reviewed: Yes Medication Review Details: Current Medications Albuterol/Ipratropium (Duoneb) 3 ml INHALATION Q4H.RESPIRATORY [facility] Last Admin: 12/28/19 09:01 Dose: Not Given Documented by: Hydrocortisone Sodium Succinate (Solu-Cortef Inj) 12.5 mg IVP Q12H OPAL Last Admin: 12/27/19 21:04 Dose: 12.5 mg Documented by: Metronidazole (Flagyl Iv) 500 mg in 100 mls @ 100 mls/hr IV Q8H OP[facility]; Protocol Last Admin: 12/28/19 08:05 Dose: 100 mls/hr Documented by: Doxycycline Hyclate 100 mg/ (Sodium Chloride) 100 mls @ 100 mls/hr IV Q12H OPAL; Protocol Last Admin: 12/27/19 23:31 Dose: 100 mls/hr Documented by: Cefepime HCl 1,000 mg/ Sodium (Chloride) 50 mls @ 100 mls/hr IV Q24H OP[facility]; Protocol Last Admin: 12/28/19 00:26 Dose: 100 mls/hr Documented by: Albumin Human (Albumin) 12.5 gm in 50 mls @ 60 mls/hr IV PRN PRN PRN Reason: Hypotension and/or symptomatic Sodium Chloride (Sodium Chloride 0.9%) 1,000 mls @ 0 mls/hr IV .Q0M PRN PRN Reason: hypotension or symptomatic Albumin Human (Albumin) 12.5 gm in 50 mls @ 60 mls/hr IV PRN PRN PRN Reason: Hypotension and/or symptomatic Lactulose (Constulose) 10 gm PO Q12H [facility] Last Admin: 12/28/19 08:03 Dose: 10 gm Documented by: Ondansetron HCl (Zofran) 4 mg IVP Q6H PRN PRN Reason: vomiting, or N/V if npo Pantoprazole Sodium (Protonix) 40 mg IVP Q12H [facility] Last Admin: 12/28/19 08:05 Dose: 40 mg Documented by: Senna/Docusate Sodium (Senna-S) 1 tab PO BID [facility] Last Admin: 12/27/19 17:25 Dose: Not Given Documented by: Vitals/I&O/Wt Last Vital Signs Temp 97.5 F L 12/28/19 04:00 Pulse 69 12/28/19 08:00 Resp 23 H 12/28/19 08:00 BP 158/63 12/28/19 08:00 Pulse Ox 93 12/28/19 08:00 12/27/19 12/28/19 12/28/19 22:59 06:59 14:59 Intake Total 160 / 410 400 / 810 60 / 60 Output Total 1200 / 1200 975 / 2175 Balance -1040 / -790 -575 / -1365 60 / 60 Weight last 48 hrs Weight 108.908 kg Weight 107.501 kg Physical Exam Narrative: EXAM NARRATIVE: telemedicine exam performed by RN comfortable in bed on heent- nca/t, eomi neck supple lungs wheezes and crackles heart irreg, +MARY and soft, nt, nd, +BX ext 1+ edema neuro- a,a, o x 1+ Urinary Catheter Management^: Boss: Cath Placed During This Visit: yes Reason for Continuing Indwelling Catheter: Accurate Measurement of Urinary Output in Critically Ill Patients Urinary Catheter Date of Insertion: 12/19/19 Urinary Catheter Time of Insertion: 14:00 Data : 12/27/19 03:45 12/28/19 03:00 A&P Additional A&P Information Impression: 1. Acute kidney injury, due to sepsis, contrast, mild rhabdomyolysis. Received dialysis and Saturday- monitor for renal recovery. -k okay, non-oliguric - ANAHY from [facility]. presented w/ sepstic shock that is improving -holding dialysis today -consider hypotonic ivf. or encourage pt to drink fluids- she needs nutrition 2. thrombocytopenia -monitor plts, appear stable 3. PNA- renal dsoe abx 4. Anemia 5. Presumed underlying COPD per Pulm 6. AMS- monitor for improvement as infection, liver failure, and ANAHY are improving 7. diastolic dysfunction w/ normal LVEF on echo 8. pt is now dnr/ dni- and may not want further dialysis. discussed w/ hospitalist meds reviewed Attestations Medical Necessity Statement*: pna, anahy, ams Time Spent in Patient Care: 16 - 35 minutes Coding Level of Care Code Acute Salesforce Administrator for Placido Dominguez
[2019-12-28] MEDS: sennosides-docusate Tablet 1 TAB PO ×2 (10:17→17:21)
[2019-12-28] MEDS: hydrocortisone 100 mg/2 mL SDV 12.5 MG IVP ×2 (10:17→20:25)
[2019-12-28] MEDS: doxycycline 100 MG in sodium chloride 0.9% (plus) 100 ML IV ×2 (10:54→23:46)
[2019-12-28 12:21] LABS: Glucose Point of Care 116 mg/dL (70-110)
--- NOTE | 2019-12-28 13:05 | P.PN_ITS ---
Subjective Subjective: Interval history: extubated, awake, confused, no acute events, code status changed to DNR yesterday after discussion with daughter. Plt stable Vitals/I&O/Wt Last Vital Signs Temp 97.8 F 12/28/19 10:00 Pulse 84 12/28/19 12:00 Resp 13 12/28/19 12:00 BP 166/79 12/28/19 12:54 Pulse Ox 92 12/28/19 12:00 12/27/19 12/28/19 12/28/19 22:59 06:59 14:59 Intake Total 160 / 410 500 / 910 110 / 110 Output Total 1200 / 1200 975 / 2175 Balance -1040 / -790 -475 / -1265 110 / 110 Weight last 48 hrs Weight 108.908 kg Weight 107.501 kg Physical Exam Narrative: EXAM NARRATIVE: GEN: Awake, confused CVS: S1S2 N RS: CTA B/L Abd: Soft, nt/nd , bs+ BILINGUAL RECEPTIONIST: no focal neuro deficits Urinary Catheter Management^: Boss: Cath Placed During This Visit: yes Reason for Continuing Indwelling Catheter: Accurate Measurement of Urinary Output in Critically Ill Patients Urinary Catheter Date of Insertion: 12/19/19 Urinary Catheter Time of Insertion: 14:00 Data : 12/27/19 03:45 12/28/19 03:00 A&P Assessment and plan (1) Encephalopathy: She is a bit confused. Reportedly had a restless night, did not sleep at all. Occasional vocalizations. This morning she knows she is at [facility] [place]. Cannot state the year. Initially states she is in pain, but cannot say where. Suspect critical illness delirium, possibly ICU delirium. Has been off of several medications from home which may be contributing. Continue to reorient. Supportive care. Mobilize. Noncontrast CT head without acute abnormality. She has perhaps some mild memory issues occasionally, daughter denies dementia. Has been extubated and weaned off sedation. Status: Acute (2) Acute respiratory failure: Extubated. On BiPAP support overnight. Previously on 6 L nasal cannula. Wean off BiPAP as tolerating. Wean down oxygen as tolerated. If continues to improve, consider de-escalating antibiotics. HD per nephro For now continue cefepime, doxycycline, Flagyl. MRSA PCR negative. Vancomycin discontinued. Levaquin discontinued. Sputum culture with upper respiratory rajesh. Urine bacterial antigens negative. Status: Acute (3) Pneumonia: Multilobar pneumonia. Gradually improving. Recurrent fever resolved. Cefepime. Vancomycin stopped. Levaquin stopped. Flagyl was added previously for significant secretions. She was also placed on doxycycline 1 day following admission secondary to history of tick exposure Sputum culture with only upper respiratory rajesh. Urine bacterial antigens negative. COVID retested, negative. With recurrent fever consider bacteremia, but blood cultures repeatedly negative. TTE difficult study, probably normal EF, pulm HTN. Pacemaker site without concerns outwardly. Soft tissue US performed with small ovoid collection of fluid at the inferior aspect of the insertion site measuring 1.0 x 0.7 x 0.7 CM. No drainable abscess. Status: Acute Qualifiers: Pneumonia type: due to unspecified organism Laterality: bilateral Lung location: lower lobe of lung Qualified Code(s): J18.9 - Pneumonia, unspecified organism (4) Acute kidney injury: Urine output improving. Continue to support blood pressure. No hydronephrosis on renal ultrasound. Recheck CK At home appears was taking naproxen, lisinopril. Concern for also contrast- induced nephropathy with recent CTA. Status: Acute (5) Sepsis: Resolved. Will wean down stress dose steroids. Leukocytosis resolved. Continue antibiotics. DC R femoral central line. PT assessment. Mobilize. For now still requiring quite a bit of care so maintain in ICU, but may be able to transfer soon. Continues to have diarrhea. C. difficile negative. Abdomen is nontender on exam today. Maintain rectal tube in place for now. If starts improving, or starts becoming more mobile removed to prevent pressure injury. Abdomen is currently nontender. Soft. Lactic acid did improve since admission. Suspicion for focal bowel ischemia would be low per economic developer, she may have had some global hypoperfusion. On CT air distended sigmoid colon no evidence of obstruction. She is producing some stool which is liquid. C. difficile negative. No hydronephrosis. Discussion with economic developer can gradually increase feeding. Will get speech therapy evaluation due to high risk of aspiration. Suspicion also of tickborne illness. Continue doxycycline empirically. Tick panel negative -Rickettsia IgG is positive, unclear significance, perhaps indicating past infection. I doubt this is related to current condition as had no rash, which would be expected in almost all patients, but otherwise may develop IgG in 1-2 weeks of illness. For now continue Doxy. Thrombocytopenia, elevation of liver function parameters which have been improving. Mild hyponatremia resolved. Peripheral smear with suspected infectious etiology of thrombocytopenia. No blasts. Few if any schistocytes. Status: Acute (6) Hypotension: Resolved. Will reduce hydrocortisone dose to 12.5 mg q12. Status: Acute (7) Elevated troponin: Type II. No evidence of acute myocardial infarction Status: Acute (8) Thrombocytopenia: Stabilized. Low in 60s. Heparin products had been held. Negative tick panel. Continue doxy for PNA as above. Peripheral smear without blasts, few if any schistocytes per discussion with pathologist. Leukocytosis. Thrombocytopenia is suggested perhaps secondary to acute infection, sepsis. Liver dysfunction. Pantoprazole, cefepime were started after thrombocytopenia was worsening, so not likely contributed. Status: Acute (9) Paroxysmal A-fib: Small atrial fibrillation with no history. Currently with slow ventricular response. Monitor rates, if increasing will add diltiazem which she takes at home if blood pressure will allow. Currently with thrombocytopenia not a candidate for anticoagulation, if this should improve, may be considered at that time. Status: Acute Additional A&P Information Metabolic acidosis. Improved. Transaminitis. Improving. Unremarkable hepatitis panel. Has not had any abdominal discomfort. Development of this is likely secondary to sepsis. Hete rogenous liver. Suspect injury secondary to hypotension, sepsis, possibly tick- borne illness. History of tick bites. Doxycycline. Note that she has become leukopenic as well as thrombocytopenic which could be indicative of tickborne disease although sepsis from pneumonia is also possible. Less likely with tick panel negative serology for acute Lyme, Ehrlichia, Rickettsia IgG is positive, unclear significance, perhaps indicating past infection. I doubt this is related to current condition as had no rash, which would be expected in almost all patients, but otherwise may develop IgG in 1-2 weeks of illness. For now continue Doxy. History of CHF. Limited visualization of LV on echocardiogram. Possibly normal EF. Diastolic dysfunction. Moderate pulmonary hypertension. Small pericardial effusion. History of COPD. Continue nebs History of coronary artery disease. Asymptomatic. Hypertension. Hypotension resolved. Wean down stress steroids. Multiple other medical problems as listed in her past medical history For today, plan is to hold dialysis,check for aspiration with swallow e valuation, needs a consistent way to feed, clinically appears euvolemic for now. Monitor U/O. Attestations Medical Necessity Statement*: Continued close monitoring of respiratory status, may move out of ICU if remains stable Coding Level of Care Code Acute Data Analysis Manager for [facility] F[facility] Diagnoses Encephalopathy G93.40 Acute respiratory failure J96.00 Pneumonia J18.9 Pneumonia type: due to unspecified organism Laterality: bilateral Lung location: lower lobe of lung Acute kidney injury N17.9 Sepsis A41.9 Hypotension I95.9 Elevated troponin R79.89 Thrombocytopenia D69.6 Paroxysmal A-fib I48.0
[2019-12-28 16:48] LABS: Glucose Point of Care 129 mg/dL (70-110)
--- NOTE | 2019-12-28 23:09 | PC.NURSE ---
0148 pt taken on portable telemetry tolerated well taken by bed to room 259 bed 1 Nurse at bedside to receive pt
[2019-12-29] VITALS (8 sets, daily range): BP systolic 150–181; BP diastolic 73–86; PULSE 86–94; RESP 17–19; TEMP 36.8–37.2; O2SAT 90–92
[2019-12-29] MEDS: cefepime 1,000 MG in sodium chloride 0.9% (plus) 50 ML 100 MG IV (00:56)
[2019-12-29] MEDS: metroNIDAZOLE IV 500 MG/100 ML PREMIX 100 MG IV ×2 (01:25→10:15)
[2019-12-29 06:02] LABS: Alanine Aminotransferase 37 U/L (0-33); Albumin Level 2.8 g/dL (3.5-5.2); Alkaline Phosphatase 79 IU/L (35-105); Aspartate Amino Transferase 25 U/L (0-32); Blood Urea Nitrogen 59 mg/dL (8-23); Calcium 8.5 mg/dL (8.5-10.5); Carbon Dioxide 25 mmol/L (22-29); Chloride 109 mmol/L (98-107); Globulin 2.9 g/dL (1.3-4.6); Glucose 120 mg/dL (65-115); Magnesium 2.2 mg/dL (1.7-2.3); Osmolality Calculated 300 mOsm/kg (285-295); Phosphorus 4.6 mg/dL (2.5-4.5); Sodium 145 mmol/L (136-145); Total Bilirubin 0.8 mg/dL (0.15-1.2); Total Protein 5.7 g/dL (6.6-8.7)
[2019-12-29 06:09] LABS: Anion Gap 14.7 (5-19); Potassium 3.7 mmol/L (3.5-5.1)
[2019-12-29 06:22] LABS: Glucose Point of Care 109 mg/dL (70-110)
[2019-12-29] MEDS: pantoprazole 40 mg SDV IVP (08:49)
--- NOTE | 2019-12-29 09:18 | P.PN_ITS ---
Subjective Subjective: Interval history: feels better. c/o fibromyalgia pains. dec sob. denies fevers Medications: Reviewed: Yes Medication Review Details: Current Medications Albuterol/Ipratropium (Duoneb) 3 ml INHALATION Q4H.RESPIRATORY [facility] Last Admin: 12/28/19 09:01 Dose: Not Given Documented by: Hydrocortisone Sodium Succinate (Solu-Cortef Inj) 12.5 mg IVP Q12H [facility] Last Admin: 12/27/19 21:04 Dose: 12.5 mg Documented by: Metronidazole (Flagyl Iv) 500 mg in 100 mls @ 100 mls/hr IV Q8H [facility]; Protocol Last Admin: 12/28/19 08:05 Dose: 100 mls/hr Documented by: Doxycycline Hyclate 100 mg/ (Sodium Chloride) 100 mls @ 100 mls/hr IV Q12H [facility]; Protocol Last Admin: 12/27/19 23:31 Dose: 100 mls/hr Documented by: Cefepime HCl 1,000 mg/ Sodium (Chloride) 50 mls @ 100 mls/hr IV Q24H [facility]; Protocol Last Admin: 12/28/19 00:26 Dose: 100 mls/hr Documented by: Albumin Human (Albumin) 12.5 gm in 50 mls @ 60 mls/hr IV PRN PRN PRN Reason: Hypotension and/or symptomatic Sodium Chloride (Sodium Chloride 0.9%) 1,000 mls @ 0 mls/hr IV .Q0M PRN PRN Reason: hypotension or symptomatic Albumin Human (Albumin) 12.5 gm in 50 mls @ 60 mls/hr IV PRN PRN PRN Reason: Hypotension and/or symptomatic Lactulose (Constulose) 10 gm PO Q12H [facility] Last Admin: 12/28/19 08:03 Dose: 10 gm Documented by: Ondansetron HCl (Zofran) 4 mg IVP Q6H PRN PRN Reason: vomiting, or N/V if npo Pantoprazole Sodium (Protonix) 40 mg IVP Q12H [facility] Last Admin: 12/28/19 08:05 Dose: 40 mg Documented by: Senna/Docusate Sodium (Senna-S) 1 tab PO BID [facility] Last Admin: 12/27/19 17:25 Dose: Not Given Documented by: Vitals/I&O/Wt Last Vital Signs Temp 98.3 F 12/29/19 07:36 Pulse 91 12/29/19 07:36 Resp 17 12/29/19 07:36 BP 164/73 12/29/19 07:36 Pulse Ox 91 12/29/19 07:36 12/28/19 12/29/19 12/29/19 22:59 06:59 14:59 Intake Total 410 / 720 Output Total 600 / 600 500 / 1100 Balance -190 / 120 -500 / -380 Weight last 48 hrs Weight 98.883 kg Weight 99.065 kg Weight 108.908 kg Physical Exam Narrative: EXAM NARRATIVE: telemedicine exam performed by RN comfortable in bed on heent- nca/t, eomi neck supple lungs improving air movement b/l heart irreg, +MARY and soft, nt, nd, +BX ext 1+ edema neuro- a,a, o x 2+ Urinary Catheter Management^: Boss: Cath Placed During This Visit: yes Reason for Continuing Indwelling Catheter: Accurate Measurement of Urinary Output in Critically Ill Patients Urinary Catheter Date of Insertion: 12/19/19 Urinary Catheter Time of Insertion: 14:00 Data : 12/27/19 03:45 12/29/19 05:05 A&P Additional A&P Information Impression: 1. Acute kidney injury, due to sepsis, contrast, mild rhabdomyolysis. Received dialysis and Saturday - for renal recovery. -k okay, non-oliguric - ANAHY from [facility]. presented w/ sepstic shock that is improving -cont to hold dialysis today -consider hypotonic ivf. or encourage pt to drink fluids- she needs nutrition -good uop -if cr continues to improve or stable can d/c dialysis catheter 2. thrombocytopenia -monitor plts, appear stable 3. PNA- renal dsoe abx 4. Anemia 5. Presumed underlying COPD per Pulm 6. AMS- monitor for improvement as infection, liver failure, and ANAHY are improving 7. diastolic dysfunction w/ normal LVEF on echo 8. pt is now dnr/ dni- -hopefully will not need further dialysis. discussed w/ pt and RN meds reviewed Attestations 2 Medical Necessity Statement*: pna, anahy Time Spent in Patient Care: 16 - 35 minutes Coding Level of Care Code Acute Sole Tier for Placido Dominguez
[2019-12-29 10:40] LABS: Glucose Point of Care 105 mg/dL (70-110)
[2019-12-29] MEDS: hydrocortisone 100 mg/2 mL SDV 12.5 MG IVP (11:38)
[2019-12-29] MEDS: doxycycline 100 MG in sodium chloride 0.9% (plus) 100 ML IV (11:41)
--- NOTE | 2019-12-29 15:44 | P.PN_ITS ---
Subjective Subjective: Interval history: Patient continues to be very weak and lethargic. Only mumbles at the room is very hard and responds to all questions. Per nursing, she is not taking any p.o. intake. in terms of solid food. Only drinks few sips of water. Medications: Reviewed: Yes Vitals/I&O/Wt Last Vital Signs Temp 98.5 F 12/29/19 11:35 Pulse 87 12/29/19 11:35 Resp 18 12/29/19 11:35 BP 169/86 12/29/19 11:35 Pulse Ox 90 12/29/19 11:35 12/29/19 12/29/19 12/29/19 06:59 14:59 22:59 Intake Total 200 / 920 100 / 100 Output Total 500 / 1100 Balance -300 / -180 100 / 100 Weight last 48 hrs Weight 98.883 kg Weight 99.065 kg Weight 108.908 kg Physical Exam Narrative: EXAM NARRATIVE: GEN: Awake, confused, speaks few ords, no jefry conversation, extremely deconditioned CVS: S1S2 N RS: CTA B/L Abd: Soft, nt/nd , bs+ PLASTICATOR: unable to assess Urinary Catheter Management^: Boss: Cath Placed During This Visit: yes Reason for Continuing Indwelling Catheter: Accurate Measurement of Urinary Output in Critically Ill Patients Urinary Catheter Date of Insertion: 12/19/19 Urinary Catheter Time of Insertion: 14:00 Data : 12/27/19 03:45 12/29/19 05:05 A&P Assessment and plan (1) Encephalopathy: She is confused, poor mentation Suspect critical illness delirium, possibly ICU delirium. Have not improved significantly since being extubated. Has been off of several medications from home which may be contributing. Continue to reorient. Supportive care. Mobilize. Noncontrast CT head without acute abnormality. She has perhaps some mild memory issues occasionally, daughter denies dementia. Has been extubated and weaned off sedation. Status: Acute (2) Acute respiratory failure: Extubated. On BiPAP intermittently, however is now refusing BiPAP and refusing any scheduled nebulization treatments. If continues to improve, consider de-escalating antibiotics. HD per nephro, creatinine improving at 1.9, likely going to hold off on any further dialysis sessions. For now continue cefepime, doxycycline, Flagyl. MRSA PCR negative. Vancomycin discontinued. Levaquin discontinued. Sputum culture with upper respiratory rajesh. Urine bacterial antigens negative. Status: Acute (3) Pneumonia: Multilobar pneumonia. Gradually improving. Recurrent fever resolved. Cefepime. Vancomycin stopped. Levaquin stopped. Flagyl was added previously for significant secretions. She was also placed on doxycycline 1 day following admission secondary to history of tick exposure Sputum culture with only upper respiratory rajesh. Urine bacterial antigens negative. COVID retested, negative. With recurrent fever consider bacteremia, but blood cultures repeatedly negative. TTE difficult study, probably normal EF, pulm HTN. Pacemaker site without concerns outwardly. Soft tissue US performed with small ovoid collection of fluid at the inferior aspect of the insertion site measuring 1.0 x 0.7 x 0.7 CM. No drainable abscess. Status: Acute Qualifiers: Pneumonia type: due to unspecified organism Laterality: bilateral Lung location: lower lobe of lung Qualified Code(s): J18.9 - Pneumonia, unspecified organism (4) Acute kidney injury: Urine output improving. Continue to support blood pressure. No hydronephrosis on renal ultrasound. Recheck CK At home appears was taking naproxen, lisinopril. Concern for also contrast- induced nephropathy with recent CTA. Status: Acute (5) Sepsis: Discontinue antibiotics today as patient has had an adequate course since admission. PT assessment. Mobilize. However patient is not participating. Continues to have diarrhea. C. difficile negative. Abdomen is nontender Rectal tube has been removed. Improving as far as sepsis goes, however patient is severely deconditioned from current hospitalization. Status: Acute (6) Hypotension: Resolved. Will reduce hydrocortisone dose to 12.5 mg q12. Status: Acute (7) Elevated troponin: Type II. No evidence of acute myocardial infarction Status: Acute (8) Thrombocytopenia: Stabilized. Leparin products had been held. Negative tick panel. Peripheral smear without blasts, few if any schistocytes per discussion with pathologist. Leukocytosis. Thrombocytopenia is suggested perhaps secondary to acute infection, sepsis. Liver dysfunction. Status: Acute (9) Paroxysmal A-fib: Small atrial fibrillation with no history. Currently with slow ventricular response. Monitor rates, if increasing will add diltiazem which she takes at home if blood pressure will allow. Currently with thrombocytopenia not a candidate for anticoagulation, if this should improve, may be considered at that time. Status: Acute Additional A&P Information Metabolic acidosis. Improved. Transaminitis. Improving. Unremarkable hepatitis panel. History of CHF. Limited visualization of LV on echocardiogram. Possibly normal EF. Diastolic dysfunction. Moderate pulmonary hypertension. Small pericardial effusion. History of COPD. Continue nebs, patient refusing History of coronary artery disease. Asymptomatic. Hypertension. Hypotension resolved. Wean down stress steroids. Multiple other medical problems as listed in her past medical history Had an extensive discussion with the patient's daughter. Patient has had a more acute decline since admission. She is not really verbal at this time. Poorly participating in conversation. Refusing p.o. intake however taking some sips of water and Ensure. Patient previously had advanced directives not to go undergo any aggressive measures in view of her advanced COPD. Patient is severely deconditioned this time. Initially there was a plan to transition her to a correction, however the daughter would like to consider taking patient home [facility]. Hospice referral has been provided. [facility] can likely accept the patient. If accepted by home hospice, will discharge likely tomorrow. Attestations Medical Necessity Statement*: Undergoing hospice evaluation, disposition planning. Likely to go home with hospice in the next 24 to 48 hours. Coding Level of Care Code Acute Pneumatic Systems Operator for [facility] Fwd Diagnoses Encephalopathy G93.40 Acute respiratory failure J96.00 Pneumonia J18.9 Pneumonia type: due to unspecified organism Laterality: bilateral Lung location: lower lobe of lung Acute kidney injury N17.9 Sepsis A41.9 Hypotension I95.9 Elevated troponin R79.89 Thrombocytopenia D69.6 Paroxysmal A-fib I48.0
[2019-12-29 16:57] LABS: Glucose Point of Care 116 mg/dL (70-110)
[2019-12-29] MEDS: lanolin oint 7 gm 1 APPLIC TOPICAL (17:02)
--- NOTE | 2019-12-29 18:59 | PC.NURSE ---
End of shift summary Patient is a hospice patient and a AND. Hospice is minimizing all invasive things. Patient has #22 gauze in her left thumb. Patient has edema to bilateral hands and legs. Patient is refusing all breathing treatment and BI-PAP. Patient is on 4 liter of oxygen which she has taken off twice in this writers shift.
[2019-12-29] MEDS: lactulose oral liq 20 gm/30 mL UDC 10 GM PO (21:25)
[2019-12-30] VITALS (8 sets, daily range): BP systolic 150–173; BP diastolic 80–89; PULSE 94–120; RESP 16–18; TEMP 36.4–37.6; O2SAT 86–92
--- NOTE | 2019-12-30 04:50 | PC.NURSE ---
WITH GOING IN AND REPOSITIONING THE PATIENT, IT WAS NOTED THE PATIENT HAS SOME WEEPING FROM THE LEFT ARM. WHAT WAS SEEN WAS CLEAR IN APPEARANCE. THERE IS A SIGNIFICANT AMOUNT OF FLUID IN HER EXTREMITIES. THERE IS NO IV ACCESS DUE TO THE AMOUNT OF SWELLING.
[2019-12-30 05:38] LABS: Basophils % 0.3 %; Eosinophils % 0.4 %; Hematocrit 32.4 % (37.0-47.0); Hemoglobin 9.7 g/dL (11.5-15.3); Lymphocytes # 0.9 10^3/uL (0.8-4.8); Lymphocytes % 8.1 %; Mean Corpuscular HGB Conc 29.9 g/dL (30.0-36.0); Mean Corpuscular Hemoglobin 27.8 pg (28.0-34.0); Mean Corpuscular Volume 92.8 fL (81-99); Mean Platelet Volume 13.7 fL (7.4-10.4); Monocytes # 1.2 10^3/uL (0.2-0.9); Monocytes % 10.9 %; Neutrophils # 8.28 10^3/uL (1.8-7.7); Nucleated Red Blood Cells % 0 %; Platelet Count 85 10^3/cmm (130-400); Red Blood Count 3.49 10^6/uL (4.1-5.3); White Blood Count 10.6 10^3/uL (4.0-10.0)
[2019-12-30 06:08] LABS: Alanine Aminotransferase 30 U/L (0-33); Albumin Level 2.8 g/dL (3.5-5.2); Alkaline Phosphatase 69 IU/L (35-105); Anion Gap 19.4 (5-19); Aspartate Amino Transferase 20 U/L (0-32); Blood Urea Nitrogen 58 mg/dL (8-23); Calcium 8.2 mg/dL (8.5-10.5); Carbon Dioxide 23 mmol/L (22-29); Chloride 110 mmol/L (98-107); Globulin 2.8 g/dL (1.3-4.6); Glucose 129 mg/dL (65-115); Magnesium 1.9 mg/dL (1.7-2.3); Osmolality Calculated 308 mOsm/kg (285-295); Phosphorus 3.4 mg/dL (2.5-4.5); Potassium 3.4 mmol/L (3.5-5.1); Sodium 149 mmol/L (136-145); Total Bilirubin 1.1 mg/dL (0.15-1.2); Total Protein 5.6 g/dL (6.6-8.7)
[2019-12-30 06:10] LABS: Slide Review Slide Review Perform
[2019-12-30 07:00] LABS: Glucose Point of Care 120 mg/dL (70-110)
--- NOTE | 2019-12-30 07:10 | PM.PN ---
Subjective Subjective: Interval history: more awake, alert. swollen, sob. not eating well Medications: Reviewed: Yes Medication Review Details: Current Medications Albuterol/Ipratropium (Duoneb) 3 ml INHALATION Q4H.RESPIRATORY PRN PRN Reason: per orders. Albumin Human (Albumin) 12.5 gm in 50 mls @ 60 mls/hr IV PRN PRN PRN Reason: Hypotension and/or symptomatic Albumin Human (Albumin) 12.5 gm in 50 mls @ 60 mls/hr IV PRN PRN PRN Reason: Hypotension and/or symptomatic Lactulose (Constulose) 10 gm PO Q12H [facility] Last Admin: 12/29/19 21:25 Dose: 10 gm Documented by: Lanolin (Lanolin Oint) 1 applic TOPICAL PRN PRN PRN Reason: DRYNESS Last Admin: 12/29/19 17:02 Dose: 1 applic Documented by: Ondansetron HCl (Zofran) 4 mg IVP Q6H PRN PRN Reason: vomiting, or N/V if npo Pantoprazole Sodium (Protonix) 40 mg IVP Q12H [facility] Last Admin: 12/29/19 21:29 Dose: Not Given Documented by: Senna/Docusate Sodium (Senna-S) 1 tab PO BID [facility] Last Admin: 12/29/19 18:47 Dose: Not Given Documented by: Vitals/I&O/Wt Last Vital Signs Temp 97.6 F 12/30/19 04:00 Pulse 97 12/30/19 04:00 Resp 18 12/30/19 04:00 BP 150/80 12/30/19 04:00 Pulse Ox 92 12/30/19 04:00 12/29/19 12/30/19 12/30/19 22:59 06:59 14:59 Intake Total 60 / 160 Output Total 1700 / 1700 1200 / 2900 Balance -1640 / -1540 -1200 / -2740 Weight last 48 hrs Weight 97.664 kg Weight 98.883 kg Weight 99.065 kg Physical Exam Narrative: EXAM NARRATIVE: telemedicine exam performed by RN swollen, sob, sitting up in bed on nc 02 heent- nca/t, eomi neck supple lungs improving air movement b/l heart irreg, +MARY and soft, nt, nd, +BS + ozuna ext 2+ edema neuro- a,a, o x 2+ Urinary Catheter Management^: Ozuna: Cath Placed During This Visit: yes Reason for Continuing Indwelling Catheter: Accurate Measurement of Urinary Output in Critically Ill Patients Urinary Catheter Date of Insertion: 12/19/19 Urinary Catheter Time of Insertion: 14:00 Data : 12/30/19 05:24 12/30/19 05:24 A&P Additional A&P Information Impression: 1. Acute kidney injury, due to sepsis, contrast, mild rhabdomyolysis. Received dialysis and Saturday - kidneys improved -remove dialysis catheter -excellent uop -remove ozuna 2. hypernatremia from diuresis w/o drinking fluids- consider d5w or po water 2b. replace potassium 3. thrombocytopenia -monitor plts, are improving 4. PNA- renal dsoe abx 5. Anemia - hgb improving 6. Presumed underlying COPD per Pulm 7. AMS- monitor for improvement as infection, liver failure, and ANAHY are improving 8. diastolic dysfunction w/ normal LVEF on echo -now swollen- add hctz 9. pt is now dnr/ dni- 10. phos normal- no binders 11. needs nutrition 12. PT discussed w/ pt and RN meds reviewed Attestations Medical Necessity Statement*: pna, improved anahy, electrolyte abnormalities, advance diet Time Spent in Patient Care: 16 - 35 minutes Coding Level of Care Code Acute Tray Filler for Placido Dominguez
[2019-12-30] MEDS: ipratropium-albuterol 3 mL Neb INHALATION (08:58)
[2019-12-30 11:09] LABS: Glucose Point of Care 130 mg/dL (70-110)
--- NOTE | 2019-12-30 11:28 | PC.NURSE ---
Spoke with Yancy at [facility] who states that they can remove patient's Boss catheter in a week.
--- NOTE | 2019-12-30 12:04 | PM.DCS ---
Discharge Providers Date of Admission: 12/18/19 14:42 Date of Discharge: December 30, 2019 Attending Provider at Admission: Mitch Maxwell MD Attending Provider at Discharge: Chloe Cordero MD Diagnoses at Discharge Discharge Diagnosis (1) Encephalopathy: Status: Acute (2) Acute respiratory failure: Status: Acute (3) Pneumonia: Status: Acute Qualifiers: Pneumonia type: due to unspecified organism Laterality: bilateral Lung location: lower lobe of lung Qualified Code(s): J18.9 - Pneumonia, unspecified organism (4) Acute kidney injury: Status: Acute (5) Sepsis: Status: Acute (6) Hypotension: Status: Acute (7) Elevated troponin: Status: Acute (8) Thrombocytopenia: Status: Acute (9) Paroxysmal A-fib: Status: Acute Reason for Visit Reason for Visit: SHAKING ALL OVER/ FEVER Hospital Course Discharge Summary: 84F with past medical history atrial fibrillation, CHF, COPD on home 02 at 3lpm chronically, CAD, hyperlipidemia, peripheral neuropathy, restless leg syndrome, sick sinus syndrome, history of appendectomy, history of bilateral knee arthroplasty, pacemaker presented to ED with chief complaint of weakness and shaking and fevers admitted initially for pneumonia, COPD exacerbation, ANAHY and troponinemia but on day 2 desaturated and went into respiratory failure and hemodynamic instability requiring intubation and pressors. Patient received antibiotics for about 7 days and all cultures negative. Eventually extubated over the weekend of 12/27. Hospital course notable for fluid overload with transiently anuric ANAHY, required temporary hemodialysis. There is question of whether or not may have had tickborne illness as well, with liver function abnormality, thrombocytopenia, hyponatremia. Empirically received doxy all along. No Maha on peripheral smear. She also had abdominal distention, tenderness, with persistent diarrhea. C. difficile negative. Due to high concern for aspiration speech therapy was requested, however patient has not been participating with the same. Her oral intake remains poor, only drinking liquids and protein shakes currently with small sips. She has declined aggressive interventions like feeding tubes in the past. At time of discharge, She is not really verbal at this time. Remains mostly confused, needs frequent reorientation, Poorly participating in conversation. Refusing p.o. intake. She is refusing nebulizations and BiPAP. She is significantly deconditioned. Per discussion with her and her daughter (DPOA) present, her code status was changed to DNR in accoradance to her advanced directives, due to multiple other advanced comorbidities, it has now been elected after discussion with her daughter to transition patient to home with hospice. Physical Exam Narrative: EXAM NARRATIVE: Awake, confused, speaks few words, no jefry conversation, extremely deconditioned CVS: S1S2 N RS: CTA B/L Abd: Soft, nt/nd , bs+ GM VIDEO: unable to assess as patient does not partcipate with exam consistently Urinary Catheter Management^: Boss: Cath Placed During This Visit: yes Reason for Continuing Indwelling Catheter: Acute Urinary Retention or Obstruction Urinary Catheter Date of Insertion: 12/19/19 Urinary Catheter Time of Insertion: 14:00 Discharge Data Data Completed and Pending: Completed Studies During Hospitalization Category Date Time Status CT abdomen pelvis wo con 43028 Rout ine Cat Scan 12/22/19 09:[address] angio chest PE protcl 60722 Rout ine Cat Scan 12/19/19 10:[address] head wo con* 7 0450 Routine Cat Scan 12/25/19 09:05 Completed XR chest 1V rio ble 13854 Routine Exams 12/20/19 06:00 Completed XR chest 1V rio ble 01087 Routine Exams 12/21/19 07:00 Completed XR chest 1V rio ble 75969 Routine Exams 12/22/19 06:00 Completed XR chest 1V rio ble 29459 Routine Exams 12/23/19 06:00 Completed XR chest 1V rio ble 03503 Routine Exams 12/25/19 06:00 Completed XR chest 1V rio ble 16596 Routine Exams 12/26/19 06:00 Completed XR chest 1V iro ble 88817 Stat Exams 12/18/19 11:50 Completed XR chest 1V rio ble 15885 Stat Exams 12/19/19 20:35 Completed CV echo complete* 51324 Routine Ultrasound 12/22/19 07:28 [place] [address] Routin e Ultrasound 12/26/19 08:37 Completed US abdomen comple te* 26580 Routine Ultrasound 12/22/19 10:10 Completed US soft tissue/ex tremity 69727 Rout ine Ultrasound 12/23/19 11:32 Completed Pending at discharge Category Date Time Status Complete Blood Co unt w/Auto AM LABS Lab 12/31/19 04:00 Ordered Complete Blood Co unt w/Auto AM LABS Lab 12/31/19 04:00 Ordered Complete Blood Co unt w/Auto AM LABS Lab 01/01/20 04:00 Ordered Complete Blood Co unt w/Auto AM LABS Lab 01/01/20 04:00 Ordered Complete Blood Co unt w/Auto AM LABS Lab 01/02/20 04:00 Ordered Comprehensive Met abolic Panel AM LA BS Lab 12/31/19 04:00 Ordered Comprehensive Met abolic Panel AM LA BS Lab 01/01/20 04:00 Ordered Comprehensive Met abolic Panel AM LA BS Lab 01/02/20 04:00 Ordered Magnesium AM LABS Lab 12/31/19 04:00 Ordered Magnesium AM LABS Lab 01/01/20 04:00 Ordered Magnesium AM LABS Lab 01/02/20 04:00 Ordered Miscellaneous Brenda t Routine Lab 12/28/19 03:00 Received Miscellaneous Brenda t Routine Lab 12/28/19 03:00 Received Phosphorus AM LAB S Lab 12/31/19 04:00 Ordered Phosphorus AM LAB S Lab 01/01/20 04:00 Ordered Phosphorus AM LAB S Lab 01/02/20 04:00 Ordered Sputum Culture an d Gram Stain Routi ne Lab 12/19/19 17:49 Results Labs from last 24 hours 12/30/19 12/30/19 12/30/19 11:07 06:29 05:24 WBC 10.6 H RBC 3.49 L Hgb 9.7 L Hct 32.4 L MCV 92.8 MCH 27.8 L MCHC 29.9 L RDW 18.0 H Plt Count 85 L MPV 13.7 H Neut % (Auto) 78.0 Lymph % (Auto) 8.1 Coleman % (Auto) 10.9 Eos % (Auto) 0.4 Baso % (Auto) 0.3 Neut # (Auto) 8.28 H Lymph # (Auto) 0.9 Coleman # (Auto) 1.2 H Eos # (Auto) 0.0 Baso # (Auto) 0.0 Nucleated RBC % (a uto) 0 Nucleated RBCs # 0.0 Sodium Potassium Chloride Carbon Dioxide Anion Gap BUN Creatinine GFR Calculation Glucose POC Glucose 130 120 Calculated Osmolal ity Calcium Phosphorus Magnesium Total Bilirubin AST ALT Alkaline Phosphata se Total Protein Albumin Globulin 12/30/19 12/29/19 05:24 16:44 WBC RBC Hgb Hct MCV MCH MCHC RDW Plt Count MPV Neut % (Auto) Lymph % (Auto) Coleman % (Auto) Eos % (Auto) Baso % (Auto) Neut # (Auto) Lymph # (Auto) Coleman # (Auto) Eos # (Auto) Baso # (Auto) Nucleated RBC % (a uto) Nucleated RBCs # Sodium 149 H Potassium 3.4 L Chloride 110 H Carbon Dioxide 23 Anion Gap 19.4 H BUN 58 H Creatinine 1.3 H GFR Calculation Not Reportable Glucose 129 H POC Glucose 116 Calculated Osmolal ity 308 H Calcium 8.2 L Phosphorus 3.4 Magnesium 1.9 Total Bilirubin 1.1 AST 20 ALT 30 Alkaline Phosphata se 69 Total Protein 5.6 L Albumin 2.8 L Globulin 2.8 Vitals: Last Vital Signs Temp 98.6 F 12/30/19 08:00 Pulse 100 12/30/19 09:04 Resp 16 12/30/19 09:01 BP 173/85 12/30/19 08:00 Pulse Ox 86 L 12/30/19 09:01 Discharge Plan Discharge Patient Disposition: Hospice - Home Condition: Stable Prescriptions: New ipratropium-albuterol 0.5 mg-3 mg(2.5 mg base)/3 mL Solution For Nebulization 3 ml inhalation Q4H.RESPIRATORY PRN (Reason: per Dr. orders. ) 30 Days Qty: 30 RF: 0 hydrochlorothiazide 25 mg Tablet 25 mg PO DAILY 30 Days Qty: 30 RF: 0 Lanolin (HPA) 100 % Cream 1 applic topical PRN PRN (Reason: Dryness) Qty: 0 RF: 0 Continued omeprazole 20 mg capsule,delayed release(DR/EC) 20 mg PO DAILY RF: 0 diltiazem HCl 120 mg capsule,extended release 24hr 120 mg PO DAILY RF: 0 hydrocodone-acetaminophen 5-325 mg tablet 1 tab PO Q6H PRN (Reason: Pain) 7 Days Qty: 28 RF: 0 Discontinued furosemide 40 mg tablet 40 mg PO BID RF: 0 Zyrtec 10 mg Tablet 10 mg PO QPM RF: 0 gabapentin 400 mg capsule See Rx Instructions .ROUTE .COMPLEX RF: 0 isosorbide mononitrate 120 mg tablet extended release 24 hr 120 mg PO QAM RF: 0 lisinopril 10 mg tablet 10 mg PO BID RF: 0 Aleve 220 mg Tablet 220 mg PO PRN RF: 0 fluticasone propionate 50 mcg/actuation spray,suspension 2 spray INTRANASAL DAILY RF: 0 escitalopram oxalate 10 mg tablet See Rx Instructions .ROUTE .COMPLEX RF: 0 Calcium 500 + D 500 mg(1,250mg) -200 unit Tablet 1 tab PO DAILY RF: 0 levocetirizine 5 mg tablet 5 mg PO QPM RF: 0 Discharge Orders: Discharge Order (Routine); Ordered 12/30/19 Ordered By: Chloe Cordero Discharge Diet: Advance as tolerated Discharge Activity: Increase activity as tolerated Discharge Attestations Time Spent in Discharge Care*: greater than 30 min Quality Metrics Clinical Quality Measures During this hospital stay, did patient experience: None Coding Level of Care Code Acute [employer]ipe [employer] for [facility] Fwd Diagnoses Encephalopathy G93.40 Acute respiratory failure J96.00 Pneumonia J18.9 Pneumonia type: due to unspecified organism Laterality: bilateral Lung location: lower lobe of lung Acute kidney injury N17.9 Sepsis A41.9 Hypotension I95.9 Elevated troponin R79.89 Thrombocytopenia D69.6 Paroxysmal A-fib I48.0
--- NOTE | 2019-12-30 12:21 | PC.NURSE ---
Primary nurse notified of Patient's low O2 sat. No action needed by this staff member, will continue to monitor.
--- NOTE | 2019-12-30 14:43 | PC.NURSE ---
Spoke with Magalie patient's daughter regarding her discharge information at this time. Magalie verbalized understanding.
--- NOTE | 2019-12-30 16:30 | PC.NURSE ---
Patient transport arrived to pick patient up at this time. Patient alert to self. Patient has hearing aids and glasses in the belongings bag that was sent home with patient. Patient is on 4 liters of oxygen by MALIA perry 90%
== END 2019-12-30 16:30 | disposition hospice, home (50) | DRG 207 ==
LOC: ER 14:11 → MEDSURG 16:09 → ICU 12-19 13:51 → MEDSURG 12-29 00:05
PROVIDERS: Family Medicine; Internal Medicine; Internal Medicine Nephrology; Surgery; Absent Provider Physician Assistant Medical; Admitting Provider Internal Medicine; Visit Provider Student in an Organized Health Care Education/Training Program
PROC: 05HM33Z Insertion of Infusion Device into Right Internal Jugular Vein, Percutaneous Approach (ICD-10-PCS; principal; 2019-12-24 13:10)
DX: J18.9 Pneumonia, unspecified organism (principal); A41.9 Sepsis, unspecified organism; R65.21 Severe sepsis with septic shock; J96.01 Acute respiratory failure with hypoxia; J44.0 Chronic obstructive pulmonary disease with (acute) lower respiratory infection; J44.1 Chronic obstructive pulmonary disease with (acute) exacerbation; E87.1 Hypo-osmolality and hyponatremia; E87.4 Mixed disorder of acid-base balance; G93.40 Encephalopathy, unspecified; N17.9 Acute kidney failure, unspecified; Z51.5 Encounter for palliative care; Z66 Do not resuscitate; I49.5 Sick sinus syndrome; I48.0 Paroxysmal atrial fibrillation; D69.6 Thrombocytopenia, unspecified; I25.119 Atherosclerotic heart disease of native coronary artery with unspecified angina pectoris; I95.9 Hypotension, unspecified; E78.5 Hyperlipidemia, unspecified; Z99.81 Dependence on supplemental oxygen; G25.81 Restless legs syndrome; Z95.0 Presence of cardiac pacemaker; Z96.653 Presence of artificial knee joint, bilateral; G62.9 Polyneuropathy, unspecified; I50.9 Heart failure, unspecified; I11.0 Hypertensive heart disease with heart failure; Z20.828 Contact with and (suspected) exposure to other viral communicable diseases
CPT/HCPCS: 12345; 36415; 36416; 36592; 36600; 51702; 51798; 70450; 71045; 71275; 74176; 76700; 76882; 77001; 80048; 80051; 80053; 80074; 80202; 80500; 81001; 81003; 82009; 82550; 82570; 82803; 82810; 82962; 83605; 83690; 83735; 83880; 83986; 84100; 84484; 84540; 85025; 86403; 86618; 86666; 86706; 86757; 86803; 87040; 87046; 87070; 87086; 87205; 87328; 87329; 87340; 87426; 87449; 87493; 87635; 87641; 87804; 90935; 92526; 92610; 93005; 93306; 93970; 94002; 94003; 94640; 94660; 94799; 96372; 96375; 97110; 97163; 97530; 99283; C1750; C1751; C9113; J0456; J0610; J0692; J0696; J1170; J1644; J1720; J1940; J1956; J2060; J2250; J2370; J2704; J3010; J3370; J3490; J7030; J7040; J7050; Q3014; Q9967; S0030